=== PATIENT | female | born 1970 | race Caucasian/White ===

== ENCOUNTER 2019-02-27 13:41 | Emergency (ER) | payer BC ==
[2019-02-27 13:58] VITALS: BP 178/101; PULSE 100; O2SAT 98
[2019-02-27] MEDS ORDERED: Fluor-I-Strip/Ful-Flo OP ONE ×2 (14:01→14:05)
[2019-02-27] MEDS ORDERED: Eye-Stream Solution OP ONE (14:01)
[2019-02-27] MEDS ORDERED: TETRACAINE 0.5% STERI-UNIT SOL OP STA (14:01)
[2019-02-27] MEDS ORDERED: Eye-Stream Solution ONE (14:05)
[2019-02-27] MEDS ORDERED: TETRACAINE 0.5% STERI-UNIT SOL OP ONE (14:05)
--- NOTE | 2019-02-27 14:26 | ERPHSYRPT ---
- History of Present Illness Time Seen by Provider: 02/27/19 14:19 Source: patient Exam Limitations: no limitations Patient Subjective Stated Complaint: pt here for a contact stuck in left eye, she co pain and tearing,pt placed the new contact in at 0730 this was trying to remove contact for shower but is unable to get it out of eye Triage Nursing Assessment: pt alert, walked in, resp easy, skin w/d/p, has reddness and tearing to left eye Physician History: 48-year-old white female arrives with complaint that she has a contact lens stuck in her left thigh symptoms since 7:30 this morning she states she's tried to get the contact out but she has not been able to she is now having pain in her left eye. Past medical history includes COPD, arthritis, anxiety, depression, panic disorder, PTSD. Past surgical history includes cholecystectomy, orthopedic surgery, tubal ligation, back surgery. Timing/Duration: today (7:30 AM) Location: left eye Severity: moderate Apparent Injury: possibly Associated Symptoms: pain, burning, foreign body sensation, No itching, No sensitivity to light, No redness, No matting, No eyelid swelling, No decreased vision, No blurred vision, No double vision Visual Assistive Devices: Contacts Chemical Exposure: No Trauma: No Welding Arc/Tanning Bed Exposure: No Allergies/Adverse Reactions: latex [Latex] Allergy (Mild, Verified 02/27/19 13:58) olanzapine [From Zyprexa] Allergy (Mild, Verified 02/27/19 13:58) sumatriptan [From Imitrex] Allergy (Verified 02/27/19 13:58) sumatriptan succinate [From Imitrex] Allergy (Verified 02/27/19 13:58) Home Medications: Unobtainable 02/27/19 [History] Hx Tetanus, Diphtheria Vaccination/Date Given: No Hx Influenza Vaccination/Date Given: No Hx Pneumococcal Vaccination/Date Given: No Immunizations Up to Date: Yes - Review of Systems Constitutional: No Fever, No Chills Eyes: Eye Pain, Foreign Body Sensation (with a foreign body sensation feels like contact in her left eye) Ears, Nose, & Throat: No Symptoms Respiratory: No Symptoms Cardiac: No Chest Pain, No Edema, No Syncope Abdominal/Gastrointestinal: No Abdominal Pain, No Nausea, No Vomiting, No Diarrhea Genitourinary Symptoms: No Dysuria Musculoskeletal: No Back Pain, No Neck Pain Skin: No Rash Neurological: No Dizziness, No Focal Weakness, No Sensory Changes Psychological: No Symptoms Endocrine: No Symptoms All Other Systems: Reviewed and Negative - Past Medical History Pertinent Past Medical History: Yes Neurological History: Epilepsy ENT History: No Pertinent History Cardiac History: Hypertension Respiratory History: COPD Endocrine Medical History: No Pertinent History Musculoskeletal History: Arthritis GI Medical History: No Pertinent History History: No Pertinent History Psycho-Social History: Anxiety, Depression, Panic Disorder Female Reproductive Disorders: No Pertinent History Other Medical History: PTSD - Past Surgical History Past Surgical History: Yes Neuro Surgical History: No Pertinent History Cardiac: No Pertinent History Respiratory: No Pertinent History Gastrointestinal: Cholecystectomy Genitourinary: No Pertinent History Musculoskeletal: Orthopedic Surgery Female Surgical History: Tubal Ligation Other Surgical History: back surgery - Social History Smoking Status: Current every day smoker How long have you smoked: 20 yrs Exposure to second hand smoke: Yes Drug Use: none Patient Lives Alone: No - Female History Hx Last Menstrual Period: january Hx Now: No - Nursing Vital Signs Nursing Vital Signs: Initial Vital Signs Temperature 98.2 F 02/27/19 13:52 Pulse Rate 100 H 02/27/19 13:52 Respiratory Rate 16 02/27/19 13:52 Blood Pressure 178/101 02/27/19 13:52 O2 Sat by Pulse Oximetry 98 02/27/19 13:52 Pain Scale Pain Intensity 4 - Physical Exam General Appearance: mild distress, alert Vision Acuity Degree Evaluation Phase: Uncorrected Vision Acuity Right Eye: 20/30 Vision Acuity Left Eye: 20/40 (that she's) Eye Exam: left eye: conjunctivae pale, bilateral eye: PERRL, EOMI, other (eyes PERRLA EOMI fundi unremarkable left conjunctiva pale) Ears, Nose, Throat Exam: normal ENT inspection, TMs normal, pharynx normal, moist mucous membranes, No dry mucous membranes, No TM abnormal (R), No TM abnormal (L), No pharyngeal erythema, No tonsillar exudate Neck Exam: normal inspection, non-tender, supple, full range of motion, No limited range of motion Respiratory Exam: normal breath sounds, lungs clear, airway intact, No chest tenderness, No respiratory distress, No diminished breath sounds, No accessory muscle use, No prolonged expirations Cardiovascular Exam: regular rate/rhythm, capillary refill <2 sec Gastrointestinal Exam: soft, normal bowel sounds, No tenderness Extremity Exam: normal inspection Neurologic: alert, oriented x 3, 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 Skin Exam: normal color SpO2 Interpretation: normal (98%) SpO2: 98 Ordered Tests: Active Orders 24 hr Category Date Time Status Visual Acuity STAT Care 02/27/19 14:01 Active Medication Summary Discontinued Medications Generic Name Dose Route Start Last Admin Trade Name Luz PRN Reason Stop Dose Admin Eye Irrigation Solution 15 ml 02/27/19 14:01 Eye-Stream Solution OP 02/27/19 14:02 STAT ONE Fluorescein Sodium 1 mg 02/27/19 14:01 [id number]-Hyotx/Ful-Glynn OP 02/27/19 14:02 STAT ONE Tetracaine HCl 4 ml 02/27/19 14:01 Tetracaine 0.5% Steri-Unit Jessica OP 02/27/19 14:02 STAT STA - Progress Progress: improved Progress Note: 02/27/19 14:23 48-year-old white female arrives with complaint of foreign body sensation in her left eye and 7:30 this morning she states that she feels as if she had a contact lens into her left eye and was unable to get it out. Arrives with complaint of pain in the anterior left eye.. On physical examination eyes PERRLA EOMI fundi are unremarkable. Conjunctiva on the left is pale. Both lids are everted on left eye I do not see a foreign body Tetracaine 0.5% is instilled in the patient's left eye left eye isStained with fluorescein, no corneal abrasions noted, left eye rinsed with sterile eyewash solution still no foreign body is noted. Patient does have some conjunctival edema in the left eye to the lateral aspect. Patient's vision was checked patient did keep her right contact in vision 20/30 on the right [address] on the left[address] Dr. Ambriz (marketing education teacher) was contacted He is willing to further examine the patient will send patient to Dr. Ambriz's office 02/27/19 14:28 - Departure Departure Disposition: Home Clinical Impression: foreign body sensation left eye, Possible contact lens remaining in eye Condition: Fair Critical Care Time: No Referrals: CONCEPCION JACKSON [Primary Care Provider] - Additional Instructions: Proceed to Dr. Ambriz's office. [address] [place] [address], [place]. . Return if problems Drive with windows in car rolled up
== END 2019-02-27 14:40 | disposition home or self-care (01) ==
LOC: ED 13:41
DX: Z04.89 Encounter for examination and observation for other specified reasons (principal); H11.422 Conjunctival edema, left eye; H57.12 Ocular pain, left eye
CPT/HCPCS: 99283; A9270-GY

== ENCOUNTER 2019-04-26 20:08 | Emergency (ER) | payer BC ==
--- NOTE | 2019-04-26 20:44 | ERPHSYRPT ---
- History of Present Illness Time Seen by Provider: 04/26/19 20:35 Source: patient Exam Limitations: no limitations Patient Subjective Stated Complaint: pt is alert and oriented. pt is ambulatory with a steady gait. pt comes in with c/o headache and hypertension. 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 pt states that she ran out of her bp medications 4 days ago. pt current bp is 172/93. pt is slightly tachycardic at 106bpm. pt is 97% on RA. pt denies chest pain, dizziness, lightheadedness. pt states her only symptoms are headache and a pulsating feeling in her neck. Triage Nursing Assessment: see above Physician History: 41-year-old white female with history of high blood pressure arrives with complaint of a headache she states she woke up with a headache this morning and at approximately 2:30 this afternoon she had an increasingly severe headache was noted at work blood pressure 193/115 she has no chest pain she has no dizziness no problems moving she has no nausea. She states she's been off her blood pressure meds for 4 days as she ran out. Past medical history includes migraines, high blood pressure. Past surgical history includes tubal ligation. Timing/Duration: today Severity: moderate Modifying Factors: Improves With: other (has not taken blood pressure medications for 4 days) Associated Symptoms: headaches, malaise, No nausea, No vomiting, No abdominal pain, No shortness of breath, No heartburn, No diaphoresis, No cough, No chills , No chest pain, No fever, No loss of appetite, No syncope, No seizure Allergies/Adverse Reactions: latex [Latex] Allergy (Mild, Verified 02/27/19 13:58) olanzapine [From Zyprexa] Allergy (Mild, Verified 02/27/19 13:58) sumatriptan [From Imitrex] Allergy (Verified 02/27/19 13:58) sumatriptan succinate [From Imitrex] Allergy (Verified 02/27/19 13:58) Hx Tetanus, Diphtheria Vaccination/Date Given: No Hx Influenza Vaccination/Date Given: No Hx Pneumococcal Vaccination/Date Given: No Immunizations Up to Date: Yes - Review of Systems Constitutional: No Fever, No Chills Eyes: No Symptoms Ears, Nose, & Throat: No Symptoms Respiratory: No Cough, No Dyspnea Cardiac: No Chest Pain, No Edema, No Syncope Abdominal/Gastrointestinal: No Abdominal Pain, No Nausea, No Vomiting, No Diarrhea Genitourinary Symptoms: No Dysuria Musculoskeletal: No Arthralgias, No Back Pain, No Neck Pain, No Deformity, No Fall, No Injury, No Joint Redness, No Joint Pain, No Joint Swelling, No Myalgias Skin: No Rash Neurological: Headache, No Dizziness, No Focal Weakness, No Gait Changes, No Irritability, No Lethargy, No Paralysis, No Parasthesia, No Seizure, No Sensory Changes, No Speech Changes, No Tics, No Tremors, No Vertigo Psychological: No Symptoms Endocrine: No Symptoms All Other Systems: Reviewed and Negative - Past Medical History Pertinent Past Medical History: Yes Neurological History: Migraines ENT History: No Pertinent History Cardiac History: Hypertension Respiratory History: No Pertinent History Endocrine Medical History: No Pertinent History Musculoskeletal History: No Pertinent History GI Medical History: No Pertinent History History: No Pertinent History Psycho-Social History: No Pertinent History Female Reproductive Disorders: No Pertinent History Other Medical History: PTSD - Past Surgical History Past Surgical History: Yes Neuro Surgical History: No Pertinent History Cardiac: No Pertinent History Respiratory: No Pertinent History Gastrointestinal: No Pertinent History Genitourinary: No Pertinent History Musculoskeletal: No Pertinent History Female Surgical History: Tubal Ligation Other Surgical History: back surgery - Social History Smoking Status: Current every day smoker How long have you smoked: 20+ years Exposure to second hand smoke: Yes Drug Use: none Patient Lives Alone: No - Female History Hx Now: No (tubal) - Nursing Vital Signs Nursing Vital Signs: Initial Vital Signs Temperature 98.2 F 04/26/19 20:17 Pulse Rate 111 H 04/26/19 20:17 Respiratory Rate 18 04/26/19 20:17 Blood Pressure 172/93 04/26/19 20:17 O2 Sat by Pulse Oximetry 96 04/26/19 20:17 Pain Scale Pain Intensity 6 - Physical Exam General Appearance: no apparent distress, alert Eye Exam: PERRL/EOMI, eyes nml inspection Ears, Nose, Throat Exam: normal ENT inspection, TMs normal, pharynx normal, moist mucous membranes Neck Exam: normal inspection, non-tender, supple, full range of motion Respiratory Exam: normal breath sounds, lungs clear, No respiratory distress Cardiovascular Exam: regular rate/rhythm, normal heart sounds, normal peripheral pulses, capillary refill <2 sec Gastrointestinal/Abdomen Exam: soft (aa), normal bowel sounds, No tenderness, No mass Back Exam: normal inspection, normal range of motion, No CVA tenderness, No vertebral tenderness Extremity Exam: normal inspection, normal range of motion, pelvis stable Neurologic Exam: alert, oriented x 3, cooperative, intraoperative neuro 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-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 nml as tested, normal mood/affect, nml cerebellar function, nml station & gait, sensation nml, No motor deficits, No sensory deficit, No disoriented, No confusion, No agitation, No uncooperative, No intoxicated appearance, No depressed mood/affect , No motor weakness, No facial droop, No slurred speech, No aphasia, No dysarthria, No abnormal gait, No abnormal cerebellar tests, No abnormal intraoperative neuro tech II- XII, No EOM palsy Skin Exam: normal color, warm, dry, No rash Lymphatic Exam: No adenopathy SpO2 Interpretation: normal (96%) SpO2: 96 - Course Nursing assessment & vital signs reviewed: Yes - CT Exams Head CT Interpretation: Tele-radiologist Report (head CT: No acute intracranial abnormality) Ordered Tests: Active Orders 24 hr Category Date Time Status EKG-ER Only STAT Care 04/26/19 20:40 Active IV Insertion STAT Care 04/26/19 20:40 Active HEAD WITHOUT CONTRAST [CT] Stat Exams 04/26/19 20:41 Taken CBC W DIFF Stat Lab 04/26/19 21:10 Completed CMP Stat Lab 04/26/19 21:10 Completed CULTURE,URINE Stat Lab 04/26/19 22:39 Received HCG QUALITATIVE,SERUM Stat Lab 04/26/19 21:10 Completed TSH [TSH, 3RD Generation] Stat Lab 04/26/19 21:15 Completed UA W/RFX UR CULTURE Stat Lab 04/26/19 22:39 Completed Medication Summary Discontinued Medications Generic Name Dose Route Start Last Admin Trade Name Luz PRN Reason Stop Dose Admin Acetaminophen 650 mg 04/26/19 23:34 04/26/19 23:44 Tylenol 325 Mg PO 04/26/19 23:35 650 mg STAT ONE Administration Acetaminophen Confirm 04/26/19 23:43 Tylenol 325 Mg Administered 04/26/19 23:44 Dose 650 mg .ROUTE .STK-MED ONE Potassium Chloride 20 meq 04/26/19 23:14 04/26/19 23:27 Klor Con 10 Meq PO 04/26/19 23:15 20 meq STAT ONE Administration Potassium Chloride Confirm 04/26/19 23:26 Klor Con 10 Meq Administered 04/26/19 23:27 Dose 20 meq PO .STK-MED ONE Lab/Rad Data: Laboratory Result Diagrams 04/26/19 21:10 04/26/19 21:10 Laboratory Results 04/26/19 04/26/19 04/26/19 Range/Units 22:39 21:15 21:10 WBC (4.0-10.5) K/mm3 RBC (4.1-5.4) M/mm3 Hgb (12.0-16.0) gm/dl Hct (35-47) % MCV (78-100) fl MCH (26-32) pg MCHC (32-36) g/dl RDW (11.5-14.0) % Plt Count (150-450) K/mm3 MPV (6-9.5) fl Gran % (36.0-66.0) % Eos # (Auto) (0-0.5) Absolute Lymphs (auto) (1.0-4.6) Absolute Monos (auto) (0.0-1.3) Lymphocytes % (24.0-44.0) % Monocytes % (0.0-12.0) % Eosinophils % (0.00-5.0) % Basophils % (0.0-0.4) % Absolute Granulocytes (1.4-6.9) Basophils # (0-0.4) Sodium (137-145) mmol/L Potassium (3.5-5.1) mmol/L Chloride (98-107) mmol/L Carbon Dioxide (22-30) mmol/L Anion Gap (5-15) MEQ/L BUN (7-17) mg/dL Creatinine (0.52-1.04) mg/dL Estimated GFR ML/MIN Glucose (74-106) mg/dL Calcium (8.4-10.2) mg/dL Total Bilirubin (0.2-1.3) mg/dL AST (14-36) U/L ALT (0-35) U/L Alkaline Phosphatase (38-126) U/L Serum Total Protein (6.3-8.2) g/dL Albumin (3.5-5.0) g/dL Free T4 1.65 H (0.76-1.46) ng/dL TSH 3rd Generation 0.995 (0.47-4.68) mIU/L Serum , Qual (Negative) Urine Color YELLOW (YELLOW) Urine Appearance CLOUDY (CLEAR) Urine pH 5.0 (5-6) Ur Specific Rice 1.011 (1.005-1.025) Urine Protein 30 (Negative) Urine Ketones NEGATIVE (NEGATIVE) Urine Blood LARGE (0-5) Armando/ul Urine Nitrite NEGATIVE (NEGATIVE) Urine Bilirubin NEGATIVE (NEGATIVE) Urine Urobilinogen 2 (0-1) mg/dL Ur Leukocyte Esterase TRACE (NEGATIVE) Urine WBC (Auto) 6-10 (0-5) /HPF Urine RBC (Auto) 3-5 (0-2) /HPF U Epithel Cells (Auto) FEW (FEW) /HPF Urine Bacteria (Auto) RARE (NEGATIVE) /HPF Urine Mucus (Auto) SLIGHT (NEGATIVE) /HPF Urine Culture Reflexed YES (NO) Urine Glucose NEGATIVE (NEGATIVE) mg/dL 04/26/19 04/26/19 04/26/19 Range/Units 21:10 21:10 21:10 WBC 8.6 (4.0-10.5) K/mm3 RBC 4.13 (4.1-5.4) M/mm3 Hgb 12.5 (12.0-16.0) gm/dl Hct 38.4 (35-47) % MCV 93.0 (78-100) fl MCH 30.3 (26-32) pg MCHC 32.6 (32-36) g/dl RDW 13.3 (11.5-14.0) % Plt Count 347 (150-450) K/mm3 MPV 9.9 H (6-9.5) fl Gran % 67.2 H (36.0-66.0) % Eos # (Auto) 0.09 (0-0.5) Absolute Lymphs (auto) 2.38 (1.0-4.6) Absolute Monos (auto) 0.35 (0.0-1.3) Lymphocytes % 27.6 (24.0-44.0) % Monocytes % 4.1 (0.0-12.0) % Eosinophils % 1.0 (0.00-5.0) % Basophils % 0.1 (0.0-0.4) % Absolute Granulocytes 5.78 (1.4-6.9) Basophils # 0.01 (0-0.4) Sodium 141 (137-145) mmol/L Potassium 3.2 L (3.5-5.1) mmol/L Chloride 108 H (98-107) mmol/L Carbon Dioxide 27 (22-30) mmol/L Anion Gap 9.2 (5-15) MEQ/L BUN 7 (7-17) mg/dL Creatinine 0.85 (0.52-1.04) mg/dL Estimated GFR > 60.0 ML/MIN Glucose 112 H (74-106) mg/dL Calcium 9.0 (8.4-10.2) mg/dL Total Bilirubin 0.30 (0.2-1.3) mg/dL AST 16 (14-36) U/L ALT 12 (0-35) U/L Alkaline Phosphatase 51 (38-126) U/L Serum Total Protein 7.0 (6.3-8.2) g/dL Albumin 4.1 (3.5-5.0) g/dL Free T4 (0.76-1.46) ng/dL TSH 3rd Generation (0.47-4.68) mIU/L Serum , Qual NEGATIVE (Negative) Urine Color (YELLOW) Urine Appearance (CLEAR) Urine pH (5-6) Ur Specific Rice (1.005-1.025) Urine Protein (Negative) Urine Ketones (NEGATIVE) Urine Blood (0-5) Armando/ul Urine Nitrite (NEGATIVE) Urine Bilirubin (NEGATIVE) Urine Urobilinogen (0-1) mg/dL Ur Leukocyte Esterase (NEGATIVE) Urine WBC (Auto) (0-5) /HPF Urine RBC (Auto) (0-2) /HPF U Epithel Cells (Auto) (FEW) /HPF Urine Bacteria (Auto) (NEGATIVE) /HPF Urine Mucus (Auto) (NEGATIVE) /HPF Urine Culture Reflexed (NO) Urine Glucose (NEGATIVE) mg/dL - Progress Progress: improved Progress Note: 04/26/19 23:45 Patient's labs are unremarkable. Head CT no acute intracranial abnormality blood pressure markedly improved as compared to the one reported for work Patient was given Tylenol for pain She had been offered [place] but prefers Tylenol She was also given potassium 20 mEq for a potassium level of 3.2 Will go ahead and discharge patient. patient to rest at home. Patient to contact her family doctor for refills of her antihypertensives. Return for acute distress or for severe symptoms . - Departure Departure Disposition: Home Clinical Impression: Headache Qualifiers: Headache type: unspecified Headache chronicity pattern: acute headache Intractability: not intractable Qualified Code(s): R51 - Headache Hypertension Qualifiers: Hypertension type: unspecified Qualified Code(s): I10 - Essential (primary) hypertension Condition: Fair Critical Care Time: No Referrals: MAIA BARRAZA MD [Primary Care Provider] - Additional Instructions: Return home. [place] as prescribed. Followup with your family . Return for acute distress or for severe symptoms. Prescriptions: Hydrocodone/APAP 5-325 Tab^^^ [[place] 5-325 Tablet^^^] 1 tab PO Q6HPRN PRN #10 tablet MDD 6 PRN Reason: Pain
[2019-04-26 21:21] LABS: BASOPHIL % 0.1 % (0.0-0.4); Basophil (Absolute #) 0.01 (0-0.4); Eosinophil (Absolute #) 0.09 (0-0.5); Granulocyte Absolute (ANC) 5.78 (1.4-6.9); Granulocytes % 67.2 % (36.0-66.0); Hematocrit 38.4 % (35-47); Hemoglobin 12.5 gm/dl (12.0-16.0); Lymphocyte (Absolute #) 2.38 (1.0-4.6); Lymphocytes % 27.6 % (24.0-44.0); Mean Corpuscular Hemoglobin 30.3 pg (26-32); Mean Corpuscular Hgb Concent. 32.6 g/dl (32-36); Mean Platelet Volume 9.9 fl (6-9.5); Monocyte (Absolute #) 0.35 (0.0-1.3); Monocytes % 4.1 % (0.0-12.0); Platelet Count 347 K/mm3 (150-450); Red Blood Count 4.13 M/mm3 (4.1-5.4); Red Cell Distribution Width 13.3 % (11.5-14.0); White Blood Count 8.6 K/mm3 (4.0-10.5)
[2019-04-26 21:30] LABS: ALBUMIN 4.1 g/dL (3.5-5.0); ALKALINE PHOSPHATASE 51 U/L (38-126); ANION GAP 9.2 MEQ/L (5-15); BLOOD UREA NITROGEN 7 mg/dL (7-17); CHLORIDE 108 mmol/L (98-107); Carbon Dioxide 27 mmol/L (22-30); Creatinine 1 0.85 mg/dL (0.52-1.04); Glucose 112 mg/dL (74-106); Potassium 3.2 mmol/L (3.5-5.1); SGOT/AST 16 U/L (14-36); SGPT/ALT 12 U/L (0-35); SODIUM 141 mmol/L (137-145)
[2019-04-26 22:49] LABS: Appearance CLOUDY (CLEAR); Bacteria RARE /HPF (NEGATIVE); Bilirubin NEGATIVE (NEGATIVE); Blood LARGE Ery/ul (0-5); Epithelial Cells FEW /HPF (FEW); Glucose NEGATIVE (NEGATIVE); Ketones NEGATIVE (NEGATIVE); Leukocyte Esterase TRACE (NEGATIVE); Mucus SLIGHT /HPF (NEGATIVE); Nitrite NEGATIVE (NEGATIVE); Protein,Urine Dip 30 (Negative); Specific Gravity 1.011 (1.005-1.025); Urobilinogen 2 mg/dL (0-1)
[2019-04-26 23:06] VITALS: O2SAT 96
[2019-04-26] MEDS ORDERED: Klor Con 10 MEQ PO ONE ×2 (23:14→23:26)
[2019-04-26] MEDS ORDERED: TYLENOL 325 MG PO ONE (23:34)
[2019-04-26] MEDS ORDERED: TYLENOL 325 MG ONE (23:43)
[2019-04-26] MEDS ORDERED: NORCO 5/325 MG ONE (23:48)
[2019-04-26] MEDS ORDERED: Tylenol #3 Tablet PO ONE (23:50)
[2019-04-26] MEDS ORDERED: NORCO 5/325 MG PO ONE (23:54)
[2019-04-26 23:57] VITALS: BP 169/86; PULSE 88
--- NOTE | 2019-04-27 14:35 | XRAY ---
Indication: Posterior headache. High blood pressure. History of migraines. No known injury. Multiple contiguous axial images obtained through the head without contrast. Comparison: September 29, 2015. Again normal appearing brain parenchyma, ventricles, and bony calvarium. Visualized paranasal sinuses and mastoid air cells are clear. Impression: Stable normal CT head without contrast exam. Comment: Preliminary interpretation was made by [facility]. No critical discrepancy. CTDI 70.21
== END 2019-04-27 00:06 | disposition home or self-care (01) ==
LOC: ED 20:08
DX: R51 Headache (principal); I10 Essential (primary) hypertension
CPT/HCPCS: 36000; 36415; 70450; 80053; 81001; 81025; 84439; 84443; 85025; 87086; 93005; 99284; A9270-GY

== ENCOUNTER 2021-04-02 17:11 | Emergency (ER) | payer BC, OTHER ==
[2021-04-02] MEDS ORDERED: XYLOCAINE 1% HCL 20 ML MDV ONE (17:53)
[2021-04-02] MEDS ORDERED: Adacel Vial IM ONE ×2 (17:58→18:12)
--- NOTE | 2021-04-02 18:02 | ERPHSYRPT ---
- History of Present Illness Source: patient Exam Limitations: no limitations Patient Subjective Stated Complaint: Pts hand got her right hand twisted around the dog leash and cut pinky finger and pulled most of the nail away from the nail bed from the bottom Triage Nursing Assessment: Pt brought to the ER by her mother, tachycardic, rates pain 6/10, right nail pulled from nail bed, denies any other injury Physician History: 50 yo wf w L 1st digit vs door at home before arrival. Pt denies other/previous injuries. Tetanus will be given in ER. Occurred: just prior to arrival Method of Injury: direct blow Quality: constant Severity of Pain-Max: moderate Severity of Pain-Current: moderate Extremities Pain Location: 5th finger: left Modifying Factors: Improves With: movement Associated Symptoms: none Allergies/Adverse Reactions: latex [Latex] Allergy (Mild, Verified 04/02/21 17:22) olanzapine [From Zyprexa] Allergy (Mild, Verified 04/02/21 17:22) sumatriptan [From Imitrex] Allergy (Verified 04/02/21 17:22) sumatriptan succinate [From Imitrex] Allergy (Verified 04/02/21 17:22) Home Medications: Atorvastatin Calcium [Lipitor] 10 mg PO DAILY 04/02/21 [History] Cyclobenzaprine HCl 10 mg [Cyclobenzaprine 10 MG] 10 mg PO TID 04/02/21 [History] Gabapentin 100 mg [Neurontin 100 MG] 300 mg PO UD 04/02/21 [History] Loratadine 10 mg [Claritin 10 mg] 10 mg PO DAILY 04/02/21 [History] Losartan/Hydrochlorothiazide [Losartan-Hctz 50-12.5 mg Tab] 1 each PO DAILY 04/02/21 [History] Metoprolol Succinate 25 mg Xl* [Toprol-Xl 25MG Tablets] 25 mg PO DAILY 12/19 [History] Omeprazole 20 mg PO DAILY 04/02/21 [History] Hx Tetanus, Diphtheria Vaccination/Date Given: No Hx Influenza Vaccination/Date Given: No Hx Pneumococcal Vaccination/Date Given: No Travel Risk - International Travel Have you traveled outside of the country in past 3 weeks: No - Coronavirus Screening Are you exhibiting any of the following symptoms?: No Close contact with a COVID-19 positive Pt in past 14-21 Days: No - Vaccine Status Have you recieved a Covid-19 vaccination: Yes Manager Environmental Services: Moderna - Vaccination Dates Date of 2cond Vaccination (if applicable): 11/24/2020 - Review of Systems Constitutional: No Symptoms Eyes: No Symptoms Ears, Nose, & Throat: No Symptoms Respiratory: No Symptoms Cardiac: No Symptoms Abdominal/Gastrointestinal: No Symptoms Genitourinary Symptoms: No Symptoms Skin: No Symptoms Neurological: No Symptoms Psychological: No Symptoms Endocrine: No Symptoms Hematologic/Lymphatic: No Symptoms Immunological/Allergic: No Symptoms - Past Medical History Pertinent Past Medical History: Yes Neurological History: Migraines ENT History: No Pertinent History Cardiac History: Hypertension Respiratory History: No Pertinent History Endocrine Medical History: No Pertinent History Musculoskeletal History: No Pertinent History GI Medical History: No Pertinent History History: No Pertinent History Psycho-Social History: No Pertinent History Female Reproductive Disorders: No Pertinent History Other Medical History: PTSD - Past Surgical History Past Surgical History: Yes Neuro Surgical History: No Pertinent History Cardiac: No Pertinent History Respiratory: No Pertinent History Gastrointestinal: No Pertinent History Genitourinary: No Pertinent History Musculoskeletal: No Pertinent History Female Surgical History: Tubal Ligation Other Surgical History: back surgery - Social History Smoking Status: Current every day smoker How long have you smoked: 20+ years Exposure to second hand smoke: Yes Drug Use: none Patient Lives Alone: No Significant Family History: no pertinent family hx - Female History Hx Now: No - Nursing Vital Signs Nursing Vital Signs: Initial Vital Signs Temperature 97.9 F 04/02/21 17:13 Pulse Rate 101 H 04/02/21 17:13 Blood Pressure 133/86 04/02/21 17:13 O2 Sat by Pulse Oximetry 97 04/02/21 17:13 Pain Scale Pain Intensity 4 Tachycardic - Physical Exam General Appearance: no apparent distress Eyes, Ears, Nose, Throat Exam: normal ENT inspection Neck Exam: normal inspection, non-tender, supple, full range of motion Cardiovascular/Respiratory Exam: normal breath sounds, tachycardia (Mild) Abdominal Exam: non-tender, soft Back Exam: normal inspection Shoulder Exam: normal inspection Elbow/Forearm Exam: normal inspection Wrist Exam: normal inspection Hand Exam: laceration (R 5th digit w almost complete nail avulsion/Good distal capillary return and sensation) Neuro/Tendon Exam: normal sensation, normal motor functions, normal tendon functions, responds to pain, no evidence tendon injury, No motor deficit, No sensory deficit Mental Status Exam: alert, oriented x 3, cooperative Skin Exam: normal color, warm, dry SpO2 Interpretation: normal SpO2: 97 O2 Delivery: Room Air - Course Nursing assessment & vital signs reviewed: Yes - Radiology Exams Hand X-ray Interpretation: Interpreted by me (Distal L 5th digit fx per ER read) Ordered Tests: Active Orders 24 hr Category Date Time Status Wound Care STAT Care 04/02/21 18:50 Completed FINGER(S) Stat Exams 04/02/21 18:12 Taken Medication Summary Discontinued Medications Generic Name Dose Route Start Last Admin Trade Name Freq PRN Reason Stop Dose Admin Bacitracin Zinc 0.9 gm 04/02/21 18:50 04/02/21 18:53 Baciguent Packet TP 04/02/21 18:51 0.9 gm STAT ONE Administration Bacitracin Zinc Confirm 04/02/21 18:52 Baciguent Packet Administered 04/02/21 18:53 Dose 1 gm .ROUTE .STK-MED ONE Diphtheria/Tetanus/Acell Pertussis 0.5 ml 04/02/21 17:58 04/02/21 18:13 Adacel Vial IM 04/02/21 17:59 0.5 ml .ONCE ONE Administration Diphtheria/Tetanus/Acell Pertussis Confirm 04/02/21 18:12 Adacel Vial Administered 04/02/21 18:13 Dose 0.5 ml IM .STK-MED ONE Lidocaine HCl Confirm 04/02/21 17:53 Xylocaine 1% Hcl 20 Ml Mdv Administered 04/02/21 17:54 Dose 5 ml .ROUTE .STK-MED ONE Silver Nitrate Confirm 04/02/21 18:39 Arzol Silver Nitrate Applicator Administered 04/02/21 18:40 Dose 4 pkt TP .STK-MED ONE Silver Nitrate Confirm 04/02/21 18:44 Arzol Silver Nitrate Applicator Administered 04/02/21 18:45 Dose 2 pkt TP .STK-MED ONE - Progress Progress: improved Progress Note: 04/02/21 18:46 Digital block 1% lido wo epi R 5th digit Finger soaked in Hibiclens Nail removed w ease Prepped w Betadine 5.0 Ethilon x2 placed to stop bleeding Silver nitrate applied to stop bleeding Pt on Augmentin already Tube gauze applied per nursing Pt has [place] at home to take Counseled pt/family regarding: need for follow-up, rad results - Departure Departure Disposition: Home Clinical Impression: Open fracture of tuft of distal phalanx of finger Condition: Stable Critical Care Time: No Referrals: MAIA BARRAZA MD [Primary Care Provider] - ZEINAB - SANTANA BLOOM NP [NON-STAFF PHY W/O PRIVILEGES] - Instructions: Wound Care (DC) Additional Instructions: Follow up with orthopedic clinic on Sunday Keep wound dry for 48 hours, then wash 1-2 times a day w soap/water [place]chwood as needed Continue with Augmentin
[2021-04-02] MEDS ORDERED: ARZOL Silver Nitrate Applicator TP ONE ×2 (18:39→18:44)
[2021-04-02] MEDS ORDERED: BACIGUENT PACKET TP ONE (18:50)
[2021-04-02] MEDS ORDERED: BACIGUENT PACKET ONE (18:52)
[2021-04-02 19:01] VITALS: BP 156/91; PULSE 88
[2021-04-02 19:57] VITALS: O2SAT 97
--- NOTE | 2021-04-02 19:59 | XRAY ---
Indication: Crush injury. Comparison: None 3 view right 5th finger demonstrates nondisplaced tuft fracture with soft tissue swelling.
== END 2021-04-02 19:06 | disposition home or self-care (01) ==
LOC: ED 17:11
DX: S62.636A Displaced fracture of distal phalanx of right little finger, initial encounter for closed fracture (principal); W23.0XXA Caught, crushed, jammed, or pinched between moving objects, initial encounter; Z79.899 Other long term (current) drug therapy
CPT/HCPCS: 73140; 90471; 90715; 99284; A9270-GY

== ENCOUNTER 2022-07-13 18:36 | Emergency (ER) | payer BC ==
[2022-07-13] MEDS ORDERED: Sodium Chloride 0.9% 1000 ML 1,000 ML IV STA (19:08)
[2022-07-13] MEDS ORDERED: Keppra 500 MG/5 ML*** 1,000 MG in D5w 100ML Mini Bag 100 ML 100 ML IV ONE (19:08)
--- NOTE | 2022-07-13 19:21 | ERPHSYRPT ---
- History of Present Illness Time Seen by Provider: 07/13/22 18:40 Source: patient, EMS Exam Limitations: no limitations Patient Subjective Stated Complaint: Seizure Triage Nursing Assessment: Patient brought into ED per EMS and transferred to bed with assist of 2. Patient A+O X 2, disoriented to time. Patient brought into ED for seizures. EMS was called for patient having seizures. EMS arrived and patient was outside on ground having a seizure lasting 5-6 sec. Patient was given 3mg of Versed per EMS. Patient states she was started on Keppra one week ago and has been having seizures daily since starting med. Patient states her last seizure was 5 years ago before starting Keppra. Patient states she had a seizure prior to starting Keppra. Patient complains of headache 10/10 and nausea. Physician History: 52 years old female with history of anxiety, depression, hypertension, hyperlipidemia, seizure disorder presented in the ER with chief complaint of multiple seizures today. Patient reports she has been taking Dilantin since 2010 and was taken off of it for quite some time until recently she started to h ave seizures again. She was started on Keppra by her primary care but now she is having seizures every day. Patient received 3 mg of Versed prior to arrival. She is answering all questions appropriately. Complaining of generalized soreness, body aches and headache but no focal numbness tingling or weakness. Denies any fall or trauma. While in the ER patient had another episode of generalized shaking and no postictal phase. No loss of bowel or bladder control. No tongue bite. Timing/Duration: today, intermittent, gradual onset, worse Severity: moderate Character of Deficits: none Deficits: no difficulties Baseline/Normal Cognition: alert oriented x 3 Current Cognition: alert oriented x 3 Baseline Gait: walks w/o assistance Associated Symptoms: seizures, headache, No confusion, No loss of consciousness, No vomiting, No weakness, No insomnia, No muscle spasms, No numbness/tingling in legs/feet, No paresthesia, No ringing in ears, No slurred speech, No vision changes, No chest pain Allergies/Adverse Reactions: latex [Latex] Allergy (Mild, Verified 07/13/22 18:41) olanzapine [From Zyprexa] Allergy (Mild, Verified 07/13/22 18:41) sumatriptan [From Imitrex] Allergy (Verified 07/13/22 18:41) sumatriptan succinate [From Imitrex] Allergy (Verified 07/13/22 18:41) Home Medications: Atorvastatin Calcium [Lipitor] 10 mg PO DAILY 04/02/21 [History] Cyclobenzaprine HCl 10 mg [Cyclobenzaprine 10 MG] 10 mg PO TID 04/02/21 [History] Gabapentin [Neurontin 100 MG] 300 mg PO UD 04/02/21 [History] Loratadine 10 mg [Claritin 10 mg] 10 mg PO DAILY 04/02/21 [History] Losartan/Hydrochlorothiazide [Losartan-Hctz 50-12.5 mg Tab] 1 each PO DAILY 04/02/21 [History] Metoprolol Succinate 25 mg Xl* [Toprol-Xl 25MG Tablets] 25 mg PO DAILY 04/02/21 [History] Omeprazole 20 mg PO DAILY 04/02/21 [History] Hx Tetanus, Diphtheria Vaccination/Date Given: No Hx Influenza Vaccination/Date Given: No Hx Pneumococcal Vaccination/Date Given: No Immunizations Up to Date: Yes Travel Risk - International Travel Have you traveled outside of the country in past 3 weeks: No - Coronavirus Screening Are you exhibiting any of the following symptoms?: No Close contact with a COVID-19 positive Pt in past 14-21 Days: No - Vaccine Status Have you recieved a Covid-19 vaccination: Yes Senior Enlisted Advisor: Moderna - Vaccination Dates Date of 2cond Vaccination (if applicable): 11/24/2020 - Review of Systems Constitutional: No Symptoms Eyes: No Symptoms Ears, Nose, & Throat: No Symptoms Respiratory: No Symptoms Cardiac: No Symptoms Abdominal/Gastrointestinal: No Symptoms Genitourinary Symptoms: No Symptoms Musculoskeletal: Myalgias Skin: No Symptoms Neurological: Seizure Psychological: No Symptoms Endocrine: No Symptoms Hematologic/Lymphatic: No Symptoms Immunological/Allergic: No Symptoms - Past Medical History Pertinent Past Medical History: Yes Neurological History: Migraines ENT History: No Pertinent History Cardiac History: Hypertension Respiratory History: No Pertinent History Endocrine Medical History: No Pertinent History Musculoskeletal History: No Pertinent History GI Medical History: No Pertinent History History: No Pertinent History Psycho-Social History: No Pertinent History Female Reproductive Disorders: No Pertinent History Other Medical History: PTSD - Past Surgical History Past Surgical History: Yes Neuro Surgical History: No Pertinent History Cardiac: No Pertinent History Respiratory: No Pertinent History Gastrointestinal: No Pertinent History Genitourinary: No Pertinent History Musculoskeletal: No Pertinent History Female Surgical History: Tubal Ligation Other Surgical History: back surgery - Social History Smoking Status: Current every day smoker How long have you smoked: 20+ years Exposure to second hand smoke: Yes Drug Use: none Patient Lives Alone: No Significant Family History: no pertinent family hx - Nursing Vital Signs Nursing Vital Signs: Initial Vital Signs Temperature 98.1 F 07/13/22 18:45 Pulse Rate 103 H 07/13/22 18:45 Respiratory Rate 18 07/13/22 18:45 Blood Pressure 130/84 07/13/22 18:45 O2 Sat by Pulse Oximetry 96 07/13/22 18:45 Pain Scale Pain Intensity 4 - [place] Coma Scale Best Eye Response (Genna): (4) open spontaneously Best Verbal Response ([place]): (5) oriented Best Motor Response (Genna): (6) obeys commands [place] Total: 15 - Physical Exam General Appearance: no apparent distress, alert Eye Exam: bilateral eye: normal inspection, PERRL, EOMI Ears, Nose, Throat Exam: normal ENT inspection Neck Exam: normal inspection, non-tender, supple, full range of motion Respiratory: normal breath sounds, lungs clear Cardiovascular: regular rate/rhythm, normal heart sounds Gastrointestinal: soft, normal bowel sounds, No tenderness Back Exam: normal inspection, normal range of motion Extremity Exam: normal inspection, normal range of motion, pelvis stable 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, oriented x 3, 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: normal hearing, normal speech, PERRL, No facial asymmetry Coordination/Gait: normal finger to nose, normal gait, normal cerebellar function Motor/Sensory: no motor deficit, no sensory deficit, no pronator drift, negative Babinski's sign DTR: bicep (R): 2+, bicep (L): 2+, knee (R): 2+, knee (L): 2+ Skin Exam: normal color SpO2 Interpretation: normal SpO2: 96 O2 Delivery: Room Air Ordered Tests: Medication Summary Discontinued Medications Generic Name Dose Route Start Last Admin Trade Name Freq PRN Reason Stop Dose Admin Sodium Chloride 1,000 mls @ 999 mls/hr 07/13/22 19:08 07/13/22 20:34 Sodium Chloride 0.9% 1000 Ml IV 07/13/22 20:08 Infused .Q1H1M STA Infusion Levetiracetam 1,000 mg/ 110 mls @ 400 mls/hr 07/13/22 19:08 07/13/22 19:28 Dextrose IV 07/13/22 19:24 400 mls/hr STAT ONE Administration Dextrose Confirm 07/13/22 19:22 D5w 100ml Mini Bag 100 Ml Administered 07/13/22 19:23 Dose 100 mls @ ud IV .STK-MED ONE Sodium Chloride Confirm 07/13/22 19:26 Sodium Chloride 0.9% 1000 Ml Administered 07/13/22 19:27 Dose 1,000 mls @ ud .ROUTE .STK-MED ONE Levetiracetam Confirm 07/13/22 19: Levetiracetam 500 Mg/5 Ml Vial Administered 07/13/22 19:23 Dose 1,000 mg .ROUTE .STK-MED ONE Lab/Rad Data: Laboratory Result Diagrams 07/13/22 19:25 07/13/22 19:25 Laboratory Results 07/13/22 07/13/22 07/13/22 Range/Units 21:28 19:43 19:43 WBC (4.0-10.5) x10^3/uL RBC (4.1-5.4) x10^6/uL Hgb (12.0-16.0) g/dL Hct (35-47) % MCV (78-100) fL MCH (26-32) pg MCHC (32-36) g/dL RDW (11.5-14.0) % Plt Count (150-450) x10^3/uL MPV (7.5-11.0) fL Gran % (36.0-66.0) % Immature Gran % (Auto) (0.00-0.4) % Nucleat RBC Rel Count (0.00-0.1) % Eos # (Auto) (0-0.5) x10^3/uL Immature Gran # (Auto) (0.00-0.03) x10^3u/L Absolute Lymphs (auto) (1.0-4.6) x10^3/uL Absolute Monos (auto) (0.0-1.3) x10^3/uL Absolute Nucleated RBC (0.00-0.01) x10^3u/L Lymphocytes % (24.0-44.0) % Monocytes % (0.0-12.0) % Eosinophils % (0.00-5.0) % Basophils % (0.0-0.4) % Absolute Granulocytes (1.4-6.9) x10^3/uL Basophils # (0-0.4) x10^3/uL Sodium (137-145) mmol/L Potassium (3.5-5.1) mmol/L Chloride (98-107) mmol/L Carbon Dioxide (22-30) mmol/L Anion Gap (5-15) MEQ/L BUN (7-17) mg/dL Creatinine (0.52-1.04) mg/dL Estimated GFR ML/MIN Glucose (74-106) mg/dL Lactic Acid 0.9 (0.4-2.0) Calcium (8.4-10.2) mg/dL Total Bilirubin (0.2-1.3) mg/dL AST (14-36) U/L ALT (0-35) U/L Alkaline Phosphatase (38-126) U/L Serum Total Protein (6.3-8.2) g/dL Albumin (3.5-5.0) g/dL Urinalys Dipstick Clnc MAIN LAB Urine Color YELLOW (YELLOW) Urine Appearance CLEAR (CLEAR) Urine pH 6.5 (5-6) Ur Specific [place] 1.015 (1.005-1.025) POC Urine Protein Conf NEGATIVE (Negative) Urine Ketones NEGATIVE (NEGATIVE) Urine Nitrite NEGATIVE (NEGATIVE) Urine Bilirubin NEGATIVE (NEGATIVE) Urine Urobilinogen 1 (0-1) mg/dL Urine Leukocytes NEGATIVE (NEGATIVE) Urine WBC (Auto) NONE (0-5) /HPF Urine RBC (Auto) 0-2 (0-2) /HPF U Epithel Cells (Auto) NONE (FEW) /HPF Urine Bacteria (Auto) NONE (NEGATIVE) /HPF Urine RBC NEGATIVE (0-5) Armando/ul Ur Culture Indicated? NO Urine Glucose NEGATIVE (NEGATIVE) mg/dL Urine Opiates Level NEGATIVE (NEGATIVE) Ur Methadone NEGATIVE (NEGATIVE) Urine Barbiturates NEGATIVE (NEGATIVE) Ur Phencyclidine (PCP) NEGATIVE (NEGATIVE) Urine Amphetamine NEGATIVE (NEGATIVE) U Benzodiazepine Level POSITIVE (NEGATIVE) Urine Cocaine NEGATIVE (NEGATIVE) Urine Marijuana (THC) NEGATIVE (NEGATIVE) 07/13/22 07/13/22 07/13/22 Range/Units 19:25 19:25 19:22 WBC 9.2 (4.0-10.5) x10^3/uL RBC 4.65 (4.1-5.4) x10^6/uL Hgb 13.9 (12.0-16.0) g/dL Hct 44.0 (35-47) % MCV 94.6 (78-100) fL MCH 29.9 (26-32) pg MCHC 31.6 L (32-36) g/dL RDW 13.6 (11.5-14.0) % Plt Count 345 (150-450) x10^3/uL MPV 9.7 (7.5-11.0) fL Gran % 67.8 H (36.0-66.0) % Immature Gran % (Auto) 0.4 (0.00-0.4) % Nucleat RBC Rel Count 0.0 (0.00-0.1) % Eos # (Auto) 0.19 (0-0.5) x10^3/uL Immature Gran # (Auto) 0.04 H (0.00-0.03) x10^3u/L Absolute Lymphs (auto) 2.32 (1.0-4.6) x10^3/uL Absolute Monos (auto) 0.36 (0.0-1.3) x10^3/uL Absolute Nucleated RBC 0.00 (0.00-0.01) x10^3u/L Lymphocytes % 25.4 (24.0-44.0) % Monocytes % 3.9 (0.0-12.0) % Eosinophils % 2.1 (0.00-5.0) % Basophils % 0.4 (0.0-0.4) % Absolute Granulocytes 6.20 (1.4-6.9) x10^3/uL Basophils # 0.04 (0-0.4) x10^3/uL Sodium 138 (137-145) mmol/L Potassium 4.0 (3.5-5.1) mmol/L Chloride 103 (98-107) mmol/L Carbon Dioxide 29 (22-30) mmol/L Anion Gap 10.9 (5-15) MEQ/L BUN 9 (7-17) mg/dL Creatinine 0.96 (0.52-1.04) mg/dL Estimated GFR > 60.0 ML/MIN Glucose 99 (74-106) mg/dL Lactic Acid 2.4 H (0.4-2.0) Calcium 9.0 (8.4-10.2) mg/dL Total Bilirubin 0.40 (0.2-1.3) mg/dL AST 20 (14-36) U/L ALT 16 (0-35) U/L Alkaline Phosphatase 65 (38-126) U/L Serum Total Protein 7.6 (6.3-8.2) g/dL Albumin 4.4 (3.5-5.0) g/dL Urinalys Dipstick Clnc Urine Color (YELLOW) Urine Appearance (CLEAR) Urine pH (5-6) Ur Specific [place] (1.005-1.025) POC Urine Protein Conf (Negative) Urine Ketones (NEGATIVE) Urine Nitrite (NEGATIVE) Urine Bilirubin (NEGATIVE) Urine Urobilinogen (0-1) mg/dL Urine Leukocytes (NEGATIVE) Urine WBC (Auto) (0-5) /HPF Urine RBC (Auto) (0-2) /HPF U Epithel Cells (Auto) (FEW) /HPF Urine Bacteria (Auto) (NEGATIVE) /HPF Urine RBC (0-5) Armando/ul Ur Culture Indicated? Urine Glucose (NEGATIVE) mg/dL Urine Opiates Level (NEGATIVE) Ur Methadone (NEGATIVE) Urine Barbiturates (NEGATIVE) Ur Phencyclidine (PCP) (NEGATIVE) Urine Amphetamine (NEGATIVE) U Benzodiazepine Level (NEGATIVE) Urine Cocaine (NEGATIVE) Urine Marijuana (THC) (NEGATIVE) - Progress Progress: improved Progress Note: 07/13/22 22:25 52-year-old is evaluated for seizures multiple times which are lately getting worse. Patient later on reported her seizures are more related to stress which is worsening lately. Patient has nonfocal neuro exam. She is back to her baseline. She is given dose of Keppra. Work-up unremarkable including CT head. 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 She is advised to continue with Keppra and follow-up with her primary care and neurology for reevaluation. Discussed signs symptoms of worsening needing return to ER which she seems understanding. Stable for discharge. Counseled pt/family regarding: lab results, diagnosis, need for follow-up, rad results - Departure Departure Disposition: Home Clinical Impression: Pseudoseizures Condition: Stable Critical Care Time: No Referrals: MAIA BARRAZA MD [Primary Care Provider] - Follow up/PCP as directed (1-2 days for reevaluation) Instructions: Seizures, Adult (DC) Additional Instructions: Continue with current medications. Follow-up with primary care and neurology for reevaluation. Return to ER for any worsening seizures, numbness tingling focal weakness etc.
[2022-07-13] MEDS ORDERED: D5w 100ML Mini Bag 100 ML 100 ML IV ONE (19:22)
[2022-07-13] MEDS ORDERED: Keppra 500 MG/5 ML ONE (19:22)
[2022-07-13] MEDS ORDERED: Sodium Chloride 0.9% 1000 ML 1,000 ML ONE (19:26)
[2022-07-13 19:48] LABS: Basophil (Absolute #) 0.04 x10^3/uL (0-0.4); Eosinophil % 2.1 % (0.00-5.0); Eosinophil (Absolute #) 0.19 x10^3/uL (0-0.5); Hemoglobin 13.9 g/dL (12.0-16.0); Lymphocyte (Absolute #) 2.32 x10^3/uL (1.0-4.6); Lymphocytes % 25.4 % (24.0-44.0); Mean Cell Volume 94.6 fL (78-100); Mean Corpuscular Hemoglobin 29.9 pg (26-32); Mean Corpuscular Hgb Concent. 31.6 g/dL (32-36); Mean Platelet Volume 9.7 fL (7.5-11.0); Monocyte (Absolute #) 0.36 x10^3/uL (0.0-1.3); Monocytes % 3.9 % (0.0-12.0); Neutrophil % 67.8 % (36.0-66.0); Platelet Count 345 x10^3/uL (150-450); Red Blood Count 4.65 x10^6/uL (4.1-5.4); Red Cell Distribution Width 13.6 % (11.5-14.0); White Blood Count 9.2 x10^3/uL (4.0-10.5)
[2022-07-13 19:59] LABS: Appearance CLEAR (CLEAR)
[2022-07-13 20:00] LABS: Bilirubin NEGATIVE (NEGATIVE); Dipstick done @ ? MAIN LAB; Glucose NEGATIVE (NEGATIVE); Ketones NEGATIVE (NEGATIVE); Nitrite NEGATIVE (NEGATIVE); Ph 6.5 (5-6); Protein,Urine Dip NEGATIVE (Negative); RBC NEGATIVE Ery/ul (0-5); Specific Gravity 1.015 (1.005-1.025); Urobilinogen 1 mg/dL (0-1)
[2022-07-13 20:16] LABS: RBC 0-2 /HPF (0-2)
[2022-07-13 20:17] LABS: Urine Cultured Indicated? NO
[2022-07-13 20:26] LABS: ALBUMIN 4.4 g/dL (3.5-5.0); ALKALINE PHOSPHATASE 65 U/L (38-126); ANION GAP 10.9 MEQ/L (5-15); BLOOD UREA NITROGEN 9 mg/dL (7-17); CHLORIDE 103 mmol/L (98-107); Carbon Dioxide 29 mmol/L (22-30); Creatinine 1 0.96 mg/dL (0.52-1.04); EST GLOMERULAR FILTRATION RATE > 60.0 ML/MIN; Glucose 99 mg/dL (74-106); SGOT/AST 20 U/L (14-36); SGPT/ALT 16 U/L (0-35); SODIUM 138 mmol/L (137-145); Total Protein 7.6 g/dL (6.3-8.2)
[2022-07-13 20:28] LABS: Amphetamine,Urine NEGATIVE (NEGATIVE); Barbiturate,Urine NEGATIVE (NEGATIVE); Benzodiazepine,Urine POSITIVE (NEGATIVE); Cocaine,Urine NEGATIVE (NEGATIVE); Opiate,Urine NEGATIVE (NEGATIVE); PCP,Urine NEGATIVE (NEGATIVE); THC,Urine NEGATIVE (NEGATIVE)
[2022-07-13 20:33] LABS: Methadone,Urine NEGATIVE (NEGATIVE)
[2022-07-13 22:07] VITALS: BP 113/77; PULSE 83
[2022-07-13 22:31] VITALS: O2SAT 96
--- NOTE | 2022-07-14 08:38 | XRAY ---
Indication: Seizure. Multiple contiguous axial images obtained through the head without contrast. Comparison: April 26, 2019 Normal appearing brain parenchyma, ventricles, and bony calvarium for patient's age. Visualized paranasal sinuses and mastoid air cells are clear. Impression: Continued normal CT head without contrast exam.
== END 2022-07-13 22:40 | disposition home or self-care (01) ==
LOC: ED 18:36
DX: R56.9 Unspecified convulsions (principal); R51.9 Headache, unspecified; I10 Essential (primary) hypertension; Z79.899 Other long term (current) drug therapy
CPT/HCPCS: 36000; 36415; 70450; 80053; 80307; 81015; 83605; 85025; 96360; 96374; 99284; J1953

== ENCOUNTER 2022-07-26 00:22 | Observation (INO) | payer BC ==
--- NOTE | 2022-07-26 00:44 | ERPHSYRPT ---
- History of Present Illness Time Seen by Provider: 07/26/22 00:40 Source: patient Exam Limitations: no limitations Patient Subjective Stated Complaint: pt states she had several seizures for one month. she states almost every day. pt states she takes keppra 500 bid, and she has been taking her keepra regularly Triage Nursing Assessment: pt is lethargic and appears post ictal. pt is laying on back in bed stating that she is having pain in her whole body following the seizure. pt rates pain in body as 10/10 Physician History: Patient is a 52-year-old female presents to emergency department via EMS for evaluation of seizure. Patient is now coming out of her old postictal. Patient is able to tell us that she has been experiencing seizures daily. Patient's last seizure was yesterday but failed to seek medical help. Patient admits to a history of seizures. She is on Keppra 500 twice a day. Patient denies fever. Patient complains of generalized body aches at this time. Patient attributes her symptoms to her seizures. No associated chest pain. No nausea vomiting or diaphoresis. Symptoms are mild to moderate in intensity. Patient voices no other complaints or concerns at this time. Portions of this note were created with voice recognition technology. There may be grammatical, spelling, punctuation or sound alike errors Timing/Duration: today Severity: moderate Character of Deficits: none Deficits: no difficulties Baseline/Normal Cognition: alert oriented x 3 Current Cognition: alert oriented x 3 Associated Symptoms: seizures, No fever, No nausea, No vomiting, No vision changes, No headache Allergies/Adverse Reactions: latex [Latex] Allergy (Mild, Verified 07/13/22 18:41) olanzapine [From Zyprexa] Allergy (Mild, Verified 07/13/22 18:41) sumatriptan [From Imitrex] Allergy (Verified 07/13/22 18:41) sumatriptan succinate [From Imitrex] Allergy (Verified 07/13/22 18:41) Home Medications: Atorvastatin Calcium [Lipitor] 10 mg PO DAILY 04/02/21 [History] Cyclobenzaprine HCl 10 mg [Cyclobenzaprine 10 MG] 10 mg PO TID 04/02/21 [History] Gabapentin [Neurontin 100 MG] 300 mg PO UD 04/02/21 [History] Loratadine 10 mg [Claritin 10 mg] 10 mg PO DAILY 04/02/21 [History] Losartan/Hydrochlorothiazide [Losartan-Hctz 50-12.5 mg Tab] 1 each PO DAILY 04/02/21 [History] Metoprolol Succinate 25 mg Xl* [Toprol-Xl 25MG Tablets] 25 mg PO DAILY 04/02/21 [History] Omeprazole 20 mg PO DAILY 04/02/21 [History] Hx Tetanus, Diphtheria Vaccination/Date Given: No Hx Influenza Vaccination/Date Given: No Hx Pneumococcal Vaccination/Date Given: No Travel Risk - International Travel Have you traveled outside of the country in past 3 weeks: No - Coronavirus Screening Are you exhibiting any of the following symptoms?: No Close contact with a COVID-19 positive Pt in past 14-21 Days: No - Vaccine Status Have you recieved a Covid-19 vaccination: Yes 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: [employer] - Vaccination Dates Date of 2cond Vaccination (if applicable): unknown - Review of Systems Constitutional: No Symptoms, No Fever, No Chills Eyes: No Symptoms Ears, Nose, & Throat: No Symptoms Respiratory: No Symptoms, No Cough, No Dyspnea Cardiac: No Symptoms, No Chest Pain, No Edema, No Syncope Abdominal/Gastrointestinal: No Symptoms, No Abdominal Pain, No Nausea, No Vomiting, No Diarrhea Genitourinary Symptoms: No Symptoms, No Dysuria Musculoskeletal: No Symptoms, No Back Pain, No Neck Pain Skin: No Symptoms, No Rash Neurological: No Symptoms, No Dizziness, No Focal Weakness, No Sensory Changes Psychological: No Symptoms Endocrine: No Symptoms Hematologic/Lymphatic: No Symptoms Immunological/Allergic: No Symptoms All Other Systems: Reviewed and Negative - Past Medical History Pertinent Past Medical History: Yes Neurological History: Migraines ENT History: No Pertinent History Cardiac History: Hypertension Respiratory History: No Pertinent History Endocrine Medical History: No Pertinent History Musculoskeletal History: No Pertinent History GI Medical History: No Pertinent History History: No Pertinent History Psycho-Social History: No Pertinent History Female Reproductive Disorders: No Pertinent History Other Medical History: PTSD - Past Surgical History Past Surgical History: Yes Neuro Surgical History: No Pertinent History Cardiac: No Pertinent History Respiratory: No Pertinent History Gastrointestinal: No Pertinent History Genitourinary: No Pertinent History Musculoskeletal: No Pertinent History Female Surgical History: Tubal Ligation Other Surgical History: back surgery - Social History Smoking Status: Current every day smoker How long have you smoked: 20+ years Exposure to second hand smoke: Yes Drug Use: none Patient Lives Alone: No Significant Family History: no pertinent family hx - Nursing Vital Signs Nursing Vital Signs: Initial Vital Signs Temperature 98.0 F 07/26/22 00:23 Pulse Rate 100 H 07/26/22 00:23 Respiratory Rate 20 07/26/22 00:23 Blood Pressure 135/76 07/26/22 00:23 O2 Sat by Pulse Oximetry 93 L 07/26/22 00:23 Pain Scale Pain Intensity 8 - Genna Coma Scale Best Eye Response ([place]): (4) open spontaneously Best Verbal Response ([place]): (5) oriented Best Motor Response ([place]): (6) obeys commands Genna Total: 15 - Physical Exam General Appearance: no apparent distress, alert Eye Exam: bilateral eye: normal inspection, PERRL, EOMI Ears, Nose, Throat Exam: normal ENT inspection, moist mucous membranes Neck Exam: normal inspection, non-tender, supple Respiratory: normal breath sounds, lungs clear, airway intact, No respiratory distress Cardiovascular: regular rate/rhythm, No edema Gastrointestinal: soft, No tenderness, No distention Back Exam: normal inspection, No normal range of motion Extremity Exam: normal inspection, No pedal edema Peripheral Pulses: dorsalis-pedis (R): 2+, dorsalis-pedis (L): 2+ 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, 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: 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 hearing, normal speech, PERRL, tongue midline, No abnormal eye position Coordination/Gait: normal finger to nose, normal gait, No normal cerebellar function Motor/Sensory: no motor deficit, no sensory deficit, no pronator drift Skin Exam: normal color, warm, dry, No rash SpO2 Interpretation: normal SpO2: 93 O2 Delivery: Room Air - Course Nursing assessment & vital signs reviewed: Yes EKG Interpreted by Me: RATE (98), Sinus Rhythm, NORMAL AXIS, NORMAL INTERVALS - CT Exams Head CT Interpretation: Tele-radiologist Report (No acute intracranial abnormality) Ordered Tests: Active Orders 24 hr Category Date Time 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 07/26/22 00:36 Active EKG-ER Only STAT Care 07/26/22 00:35 Active IV Insertion STAT Care 07/26/22 00:35 Active Pulse Oximetry (ED) STAT Care 07/26/22 00:35 Active Telemetry q4h Care 07/26/22 02:12 Active HEAD WITHOUT CONTRAST [CT] Stat Exams 07/26/22 00:38 Taken CBC W DIFF Stat Lab 07/26/22 01:19 Completed CMP Stat Lab 07/26/22 01:19 Completed CULTURE,URINE Stat Lab 07/26/22 01:46 Received TROPONIN Q4H Lab 07/26/22 01:19 Completed TROPONIN Q4H Lab 07/26/22 04:45 Ordered TROPONIN Q4H Lab 07/26/22 08:45 Ordered UA W/RFX CULTURE Stat Lab 07/26/22 01:46 Completed Transfer Order Routine Transfer 07/26/22 Ordered Medication Summary Generic Name Dose Route Start Last Admin Trade Name Freq PRN Reason Stop Dose Admin Potassium Chloride 20 meq in 100 mls @ 50 mls/hr 07/26/22 02:15 07/26/22 03:03 Potassium Chloride 20 Meq In Water 100ml IV 07/26/22 06:14 50 mls/hr Q2H NATHANIEL Administration Magnesium Sulfate/Dextrose 100 mls @ 100 mls/hr 07/26/22 02:15 Magnesium 1 Gm / 100 Ml D5w IV 07/26/22 04:14 Q1H NATHANIEL Sodium Chloride 1,000 mls @ 100 mls/hr 07/26/22 02:45 07/26/22 03:03 Sodium Chloride 0.9% 1000 Ml IV 08/25/22 02:44 100 mls/hr .Q10H NATHANIEL Administration Discontinued Medications Generic Name Dose Route Start Last Admin Trade Name Freq PRN Reason Stop Dose Admin Ceftriaxone Sodium/Dextrose 1 g in 50 mls @ 100 mls/hr 07/26/22 02:12 07/26/22 02:40 Rocephin 1 Gm-D5w 50 Ml Bag IV 07/26/22 02:41 100 mls/hr STAT STA 100 mls/hr Administration Ceftriaxone Sodium/Dextrose Confirm 07/26/22 02:34 Rocephin 1 Gm-D5w 50 Ml Bag Administered 07/26/22 02:35 Dose 1 g in 50 mls @ ud IV .STK-MED ONE Lab/Rad Data: Laboratory Result Diagrams 07/26/22 01:19 07/26/22 01:19 Laboratory Results 07/26/22 07/26/22 07/26/22 Range/Units 01:46 01:19 01:19 WBC (4.0-10.5) x10^3/uL RBC (4.1-5.4) x10^6/uL Hgb (12.0-16.0) g/dL Hct (35-47) % MCV (78-100) fL MCH (26-32) pg MCHC (32-36) g/dL RDW (11.5-14.0) % Plt Count (150-450) x10^3/uL MPV (7.5-11.0) fL Gran % (36.0-66.0) % Immature Gran % (Auto) (0.00-0.4) % Nucleat RBC Rel Count (0.00-0.1) % Eos # (Auto) (0-0.5) x10^3/uL Immature Gran # (Auto) (0.00-0.03) x10^3u/L Absolute Lymphs (auto) (1.0-4.6) x10^3/uL Absolute Monos (auto) (0.0-1.3) x10^3/uL Absolute Nucleated RBC (0.00-0.01) x10^3u/L Lymphocytes % (24.0-44.0) % Monocytes % (0.0-12.0) % Eosinophils % (0.00-5.0) % Basophils % (0.0-0.4) % Absolute Granulocytes (1.4-6.9) x10^3/uL Basophils # (0-0.4) x10^3/uL Sodium (137-145) mmol/L Potassium (3.5-5.1) mmol/L Chloride (98-107) mmol/L Carbon Dioxide (22-30) mmol/L Anion Gap (5-15) MEQ/L BUN (7-17) mg/dL Creatinine (0.52-1.04) mg/dL Estimated GFR ML/MIN Glucose (74-106) mg/dL Calcium (8.4-10.2) mg/dL Total Bilirubin (0.2-1.3) mg/dL AST (14-36) U/L ALT (0-35) U/L Alkaline Phosphatase (38-126) U/L Troponin I < 0.012 (0.000-0.034) ng/mL Serum Total Protein (6.3-8.2) g/dL Albumin (3.5-5.0) g/dL Urinalys Dipstick Clnc MAIN LAB Urine Color PINK (YELLOW) Urine Appearance CLEAR (CLEAR) Urine pH 5.5 (5-6) Ur Specific [place] 1.010 (1.005-1.025) POC Urine Protein Conf 30 (Negative) Urine Ketones NEGATIVE (NEGATIVE) Urine Nitrite NEGATIVE (NEGATIVE) Urine Bilirubin NEGATIVE (NEGATIVE) Urine Urobilinogen 0.2 (0-1) mg/dL Urine Leukocytes TRACE (NEGATIVE) Urine WBC (Auto) 6-10 (0-5) /HPF Urine RBC (Auto) >101 (0-2) /HPF U Epithel Cells (Auto) RARE (FEW) /HPF Urine Bacteria (Auto) RARE (NEGATIVE) /HPF Urine RBC LARGE (0-5) Armando/ul Unidentified Crystals 10-25 (NEGATIVE) /HPF Ur Culture Indicated? YES Urine Glucose NEGATIVE (NEGATIVE) mg/dL Influenza Type A Ag NEGATIVE (NEGATIVE) Influenza Type B Ag NEGATIVE (NEGATIVE) RSV (PCR) NEGATIVE (Negative) SARS-CoV-2 (PCR) NEGATIVE (NEGATIVE) 07/26/22 07/26/22 Range/Units 01:19 01:19 WBC 7.8 (4.0-10.5) x10^3/uL RBC 4.21 (4.1-5.4) x10^6/uL Hgb 12.6 (12.0-16.0) g/dL Hct 39.9 (35-47) % MCV 94.8 (78-100) fL MCH 29.9 (26-32) pg MCHC 31.6 L (32-36) g/dL RDW 13.1 (11.5-14.0) % Plt Count 351 (150-450) x10^3/uL MPV 9.7 (7.5-11.0) fL Gran % 55.1 (36.0-66.0) % Immature Gran % (Auto) 0.4 (0.00-0.4) % Nucleat RBC Rel Count 0.0 (0.00-0.1) % Eos # (Auto) 0.29 (0-0.5) x10^3/uL Immature Gran # (Auto) 0.03 (0.00-0.03) x10^3u/L Absolute Lymphs (auto) 2.69 (1.0-4.6) x10^3/uL Absolute Monos (auto) 0.42 (0.0-1.3) x10^3/uL Absolute Nucleated RBC 0.00 (0.00-0.01) x10^3u/L Lymphocytes % 34.6 (24.0-44.0) % Monocytes % 5.4 (0.0-12.0) % Eosinophils % 3.7 (0.00-5.0) % Basophils % 0.8 (0.0-0.4) % Absolute Granulocytes 4.28 (1.4-6.9) x10^3/uL Basophils # 0.06 (0-0.4) x10^3/uL Sodium 138 (137-145) mmol/L Potassium 3.3 L (3.5-5.1) mmol/L Chloride 103 (98-107) mmol/L Carbon Dioxide 27 (22-30) mmol/L Anion Gap 10.7 (5-15) MEQ/L BUN 8 (7-17) mg/dL Creatinine 0.97 (0.52-1.04) mg/dL Estimated GFR > 60.0 ML/MIN Glucose 155 H (74-106) mg/dL Calcium 8.3 L (8.4-10.2) mg/dL Total Bilirubin 0.20 (0.2-1.3) mg/dL AST 19 (14-36) U/L ALT 16 (0-35) U/L Alkaline Phosphatase 59 (38-126) U/L Troponin I (0.000-0.034) ng/mL Serum Total Protein 6.5 (6.3-8.2) g/dL Albumin 3.7 (3.5-5.0) g/dL Urinalys Dipstick Clnc Urine Color (YELLOW) Urine Appearance (CLEAR) Urine pH (5-6) Ur Specific [place] (1.005-1.025) POC Urine Protein Conf (Negative) Urine Ketones (NEGATIVE) Urine Nitrite (NEGATIVE) Urine Bilirubin (NEGATIVE) Urine Urobilinogen (0-1) mg/dL Urine Leukocytes (NEGATIVE) Urine WBC (Auto) (0-5) /HPF Urine RBC (Auto) (0-2) /HPF U Epithel Cells (Auto) (FEW) /HPF Urine Bacteria (Auto) (NEGATIVE) /HPF Urine RBC (0-5) Armando/ul Unidentified Crystals (NEGATIVE) /HPF Ur Culture Indicated? Urine Glucose (NEGATIVE) mg/dL Influenza Type A Ag (NEGATIVE) Influenza Type B Ag (NEGATIVE) RSV (PCR) (Negative) SARS-CoV-2 (PCR) (NEGATIVE) - Progress Progress: improved Progress Note: Patient reassessed. Repeat neuro exam within normal limits. Patient conversant well-appearing and in no distress. No injury to her tongue. CT head negative. Vital stable. Recurrent seizures of unclear etiology. However today's work- up reveals a urinary tract infection and hypokalemia. This may contribute to decreasing seizure threshold. Patient receiving antibiotics. Patient also received potassium replacement. Patient also received 2 g of magnesium. In light of patient's recurrent seizures over the past month and worsening over the past several days we will admit for further evaluation and treatment. Keppra level pending. Keppra level is a send out. Case discussed with Dr. Rachel who accepts admission to observation. Plan of care discussed with patient. She agrees to admission [facility] for further evaluation and treatment. Portions of this note were created with voice recognition technology. There may be grammatical, spelling, punctuation or sound alike errors 07/26/22 03:52 07/26/22 03:54 Discussed with DrCaro: Larry Will see patient in: hospital (observation) Counseled pt/family regarding: lab results, diagnosis, rad results - Departure Departure Disposition: Observation Clinical Impression: Seizure, UTI (urinary tract infection), Hypokalemia Condition: Stable Critical Care Time: No Referrals: MAIA BARRAZA MD [Primary Care Provider] - Follow up/PCP as directed
[2022-07-26 01:24] LABS: Absolute Neutrophil Ct (ANC) 4.28 x10^3/uL (1.4-6.9); Basophil (Absolute #) 0.06 x10^3/uL (0-0.4); Eosinophil % 3.7 % (0.00-5.0); Eosinophil (Absolute #) 0.29 x10^3/uL (0-0.5); Hematocrit 39.9 % (35-47); Hemoglobin 12.6 g/dL (12.0-16.0); Lymphocyte (Absolute #) 2.69 x10^3/uL (1.0-4.6); Lymphocytes % 34.6 % (24.0-44.0); Mean Cell Volume 94.8 fL (78-100); Mean Corpuscular Hemoglobin 29.9 pg (26-32); Mean Corpuscular Hgb Concent. 31.6 g/dL (32-36); Mean Platelet Volume 9.7 fL (7.5-11.0); Monocyte (Absolute #) 0.42 x10^3/uL (0.0-1.3); Monocytes % 5.4 % (0.0-12.0); Neutrophil % 55.1 % (36.0-66.0); Platelet Count 351 x10^3/uL (150-450); Red Blood Count 4.21 x10^6/uL (4.1-5.4); Red Cell Distribution Width 13.1 % (11.5-14.0); White Blood Count 7.8 x10^3/uL (4.0-10.5)
[2022-07-26 01:32] LABS: ALBUMIN 3.7 g/dL (3.5-5.0); ALKALINE PHOSPHATASE 59 U/L (38-126); ANION GAP 10.7 MEQ/L (5-15); BLOOD UREA NITROGEN 8 mg/dL (7-17); CHLORIDE 103 mmol/L (98-107); Calcium 8.3 mg/dL (8.4-10.2); Carbon Dioxide 27 mmol/L (22-30); Creatinine 1 0.97 mg/dL (0.52-1.04); EST GLOMERULAR FILTRATION RATE > 60.0 ML/MIN; Glucose 155 mg/dL (74-106); Potassium 3.3 mmol/L (3.5-5.1); SGOT/AST 19 U/L (14-36); SGPT/ALT 16 U/L (0-35); SODIUM 138 mmol/L (137-145); Total Protein 6.5 g/dL (6.3-8.2)
[2022-07-26 01:44] LABS: Epithelial Cells RARE /HPF (FEW)
[2022-07-26 01:46] LABS: Appearance CLEAR (CLEAR); Bilirubin NEGATIVE (NEGATIVE); Dipstick done @ ? MAIN LAB; Glucose NEGATIVE (NEGATIVE); Ketones NEGATIVE (NEGATIVE); Nitrite NEGATIVE (NEGATIVE); Ph 5.5 (5-6); Protein,Urine Dip 30 (Negative); RBC LARGE Ery/ul (0-5); Urobilinogen 0.2 mg/dL (0-1)
[2022-07-26 01:47] LABS: Bacteria RARE /HPF (NEGATIVE); RBC >101 /HPF (0-2); Urine Cultured Indicated? YES
[2022-07-26 02:00] LABS: INFLUENZA A NEGATIVE (NEGATIVE); INFLUENZA B NEGATIVE (NEGATIVE); RESPIRATORY SYNCTIAL VIRUS NEGATIVE (Negative); SARS-CoV-2 Xpert Express NEGATIVE (NEGATIVE)
[2022-07-26] MEDS ORDERED: ROCEPHIN 1 Gm-D5w 50 ml Bag** 1 G/50 ML IVPB IV STA (02:12)
[2022-07-26] MEDS ORDERED: ROCEPHIN 1 Gm-D5w 50 ml Bag** 1 G/50 ML IVPB IV ONE (02:34)
[2022-07-26] MEDS: Sodium Chloride 0.9% 1000 ML 1,000 ML IV SCH ×3 (03:03→22:44)
[2022-07-26] MEDS: POTASSIUM CHLORIDE 20 mEq IN WATER 100ML 20 MEQ/100 ML BAG IV SCH ×2 (03:03→04:31)
[2022-07-26] MEDS ORDERED: MORPHINE SULFATE 2 MG INJ IV PRN (04:13)
[2022-07-26] MEDS ORDERED: Sodium Chloride 0.9% 1000 ML 1,000 ML IV SCH (04:13)
[2022-07-26] MEDS ORDERED: HYDROCODONE-ACETAMIN 10-325 MG PO PRN (05:50)
[2022-07-26] MEDS: Magnesium 1 Gm / 100 Ml D5W*** 100 ML IV SCH ×4 (07:26→08:59)
--- NOTE | 2022-07-26 08:52 | XRAY ---
Indication: Recurrent seizures. Multiple contiguous axial images obtained through the head without contrast. Comparison: July 13, 2022 Normal appearing brain parenchyma, ventricles, and bony calvarium. Visualized paranasal sinuses and mastoid air cells are clear. Impression: Continued normal CT head without contrast exam. Comment: Preliminary interpretation made by [facility]. No critical discrepancy.
[2022-07-26] MEDS ORDERED: FLUZONE QUAD 2022-2023 SYRINGE IM ONE (10:00)
--- NOTE | 2022-07-26 11:42 | XRAY ---
Indication: Increasing seizure activity. Sagittal, coronal, and axial MRI brain performed without contrast using T1, T2, FLAIR, diffusion, and ADC sequences. Comparison: None Ventriculosulcal pattern appears symmetric. A few periventricular petechial T2 signal intensities bilaterally favors degenerative micro-ischemia. No acute intracranial hemorrhage, abnormal extra-axial fluid collection, or mass effect. Diffusion images are negative for restricted signal. No evidence for mesial temporal sclerosis. Fourth ventricle is midline without hydrocephalus. 7/8 cranial nerve complex bilaterally symmetric. Normal flow void signal within the major intracerebral circulation. Normal appearing craniocervical junction and sella turcica. Paranasal sinuses are clear. Impression: A few degenerative micro-ischemia signal within normal limits for patient's age. Remaining MRI brain without contrast exam is negative.
[2022-07-26] MEDS: hydroDIURIL 25 MG PO SCH (12:09)
[2022-07-26] MEDS: KEPPRA PO SCH ×2 (12:09→21:06)
[2022-07-26] MEDS: Protonix 40MG Tablet PO SCH (12:09)
[2022-07-26] MEDS: Cozaar 50 MG PO SCH (12:09)
[2022-07-26] MEDS: Zocor 10MG PO SCH (12:10)
[2022-07-26] MEDS: Klor Con PO SCH (12:10)
[2022-07-26] MEDS: Lexapro PO SCH (12:10)
[2022-07-26] MEDS: Ativan 2 MG/1 ML VIAL IV PRN (12:50)
[2022-07-26] MEDS ORDERED: ROCEPHIN 1 Gm-D5w 50 ml Bag** 1 G/50 ML IVPB IV SCH (14:33)
--- NOTE | 2022-07-26 14:37 | PCM.HP ---
History of Present Illness - Chief Complaint Chief Complaint: seizure, hypokalemia History of Present Illness: is a 52 year old female pt of Dr. Lolita Kenny in [place] with hx migraines, PTSD, back surgery, and sz d/o who was admitted through ER with UTI, hypokalemia, worsening seizures. Her CT head was nonacute. K+ 3.3. Given rocephin in ER for UTI. She had been dx with epilepsy at [facility] by a neurologist in 2010. She had been seizure free for years without meds. In the past 1 mo she has begun having more seizures; have been daily until the past week, when she sometimes has 2-3 sz every few hours. Three days ago she fell face first into the floor. She had an ER visit in which she got extra keppra and valium. Pt says she can tell when the seizures are coming. She falls down and thrashes her arms. She can hear people but can't answer them. Sometimes has urinary incontinence. - Review of Systems Cardiac: Edema (LE and some UE after having more sz) Genitourinary Symptoms: Vaginal Bleeding (yesterday, after > 1 yr of not having menses) Psychological: Anxiety, Depression All Other Systems: Reviewed and Negative Medications & Allergies Home Medications: Home Medication List Atorvastatin Calcium [Lipitor] 10 mg PO DAILY 04/02/21 [History Confirmed 07/26/22] Cyclobenzaprine HCl 10 mg [Cyclobenzaprine 10 MG] 10 mg PO TID 04/02/21 [History Confirmed 07/26/22] Losartan/Hydrochlorothiazide [Losartan-Hctz 50-12.5 mg Tab] 1 each PO DAILY 04/02/21 [History Confirmed 07/26/22] Metoprolol Succinate 25 mg Xl* [Toprol-Xl 25MG Tablets] 25 mg PO HS 04/02/21 [History Confirmed 07/26/22] Omeprazole 40 mg PO DAILY 04/02/21 [History Confirmed 07/26/22] Escitalopram Oxalate 10 mg PO DAILY 07/26/22 [History Confirmed 07/26/22] Hydrocodone/Acetaminophen [Hydrocodone-Acetamin 10-325 mg] 1 tablet PO TID 07/26/22 [History Confirmed 07/26/22] Levetiracetam [Keppra] 500 mg PO BID 07/26/22 [History Confirmed 07/26/22] Potassium Chloride Tab* [Klor Con] 1 tab PO DAILY 07/26/22 [History Confirmed 07/26/22] Allergies/Adverse Reactions: Allergies Allergy/AdvReac Type Severity Reaction Status Date / Time latex [Latex] Allergy Mild Verified 07/13/22 18:41 olanzapine [From Zyprexa] Allergy Mild Verified 07/13/22 18:41 sumatriptan [From Imitrex] Allergy Verified 07/13/22 18:41 sumatriptan succinate Allergy Verified 07/13/22 18:41 [From Imitrex] - Past Medical History Past Medical History: Yes Neurological History: Migraines, Seizures ENT History: No Pertinent History Cardiac History: Hypertension Respiratory History: No Pertinent History Endocrine Medical History: No Pertinent History Musculoskelatal History: Osteoarthritis GI Medical History: GERD History: No Pertinent History Pyscho-Social History: No Pertinent History Reproductive Disorders: No Pertinent History Comment: PTSD, chronic back pain, restless legs syndrome - Past Surgical History Past Surgical History: Yes Neuro Surgical History: No Pertinent History Cardiac History: No Pertinent History Respiratory Surgery: No Pertinent History GI Surgical History: No Pertinent History Genitourinary Surgical Hx: No Pertinent History Musculskeletal Surgical Hx: No Pertinent History Female Surgical History: Tubal Ligation Other Surgical History: back surgery - Social History Smoking Status: Current every day smoker How long have you smoked: years Exposure to second hand smoke: Yes Alcohol: None Drug Use: none Significant Family History: no pertinent family hx - Physical Exam Vital Signs: Vital Signs - 24 hr Temp Pulse Resp BP Pulse Ox 07/26/22 12:50 20 07/26/22 12:00 97.1 F 87 16 144/63 98 07/26/22 07:31 96.8 F 81 16 129/62 95 07/26/22 04:39 97 F 92 H 18 107/50 95 07/26/22 04:14 102 H 18 99/46 95 07/26/22 03:55 93 L 07/26/22 02:05 94 H 18 99/46 94 L 07/26/22 01:23 93 H 18 99/54 96 07/26/22 00:48 94 L 07/26/22 00:23 98.0 F 100 H 20 135/76 93 L General Appearance: no apparent distress, alert Neurologic Exam: oriented x 3, cooperative, other (CN III, IV, and -XII intact. Deficient CN V2-V3 on the R.) Eye Exam: eyes nml inspection Ears, Nose, Throat Exam: moist mucous membranes Neck Exam: normal inspection, non-tender, No lymphadenopathy, No subcutaneous emphysema, No thyromegaly Respiratory Exam: normal breath sounds, lungs clear, No crackles/rales, No rhonchi, No wheezing Cardiovascular Exam: regular rate/rhythm, normal heart sounds, No murmur Gastrointestinal/Abdomen Exam: soft, normal bowel sounds, No tenderness, No distention, No mass, No guarding, No rebound Back Exam: normal inspection, No rash Extremity Exam: normal inspection, No pedal edema, No swelling Skin Exam: normal color, warm, dry, No rash Results - Labs Lab/Micro Results: Lab Results-Last 24 Hours 07/26/22 07/26/22 07/26/22 Range/Units 01:19 01:19 01:19 WBC 7.8 (4.0-10.5) x10^3/uL RBC 4.21 (4.1-5.4) x10^6/uL Hgb 12.6 (12.0-16.0) g/dL Hct 39.9 (35-47) % MCV 94.8 (78-100) fL MCH 29.9 (26-32) pg MCHC 31.6 L (32-36) g/dL RDW 13.1 (11.5-14.0) % Plt Count 351 (150-450) x10^3/uL MPV 9.7 (7.5-11.0) fL Gran % 55.1 (36.0-66.0) % Immature Gran % (Auto) 0.4 (0.00-0.4) % Nucleat RBC Rel Count 0.0 (0.00-0.1) % Eos # (Auto) 0.29 (0-0.5) x10^3/uL Immature Gran # (Auto) 0.03 (0.00-0.03) x10^3u/L Absolute Lymphs (auto) 2.69 (1.0-4.6) x10^3/uL Absolute Monos (auto) 0.42 (0.0-1.3) x10^3/uL Absolute Nucleated RBC 0.00 (0.00-0.01) x10^3u/L Lymphocytes % 34.6 (24.0-44.0) % Monocytes % 5.4 (0.0-12.0) % Eosinophils % 3.7 (0.00-5.0) % Basophils % 0.8 (0.0-0.4) % Absolute Granulocytes 4.28 (1.4-6.9) x10^3/uL Basophils # 0.06 (0-0.4) x10^3/uL Sodium 138 (137-145) mmol/L Potassium 3.3 L (3.5-5.1) mmol/L Chloride 103 (98-107) mmol/L Carbon Dioxide 27 (22-30) mmol/L Anion Gap 10.7 (5-15) MEQ/L BUN 8 (7-17) mg/dL Creatinine 0.97 (0.52-1.04) mg/dL Estimated GFR > 60.0 ML/MIN Glucose 155 H (74-106) mg/dL Calcium 8.3 L (8.4-10.2) mg/dL Total Bilirubin 0.20 (0.2-1.3) mg/dL AST 19 (14-36) U/L ALT 16 (0-35) U/L Alkaline Phosphatase 59 (38-126) U/L Troponin I < 0.012 (0.000-0.034) ng/mL Serum Total Protein 6.5 (6.3-8.2) g/dL Albumin 3.7 (3.5-5.0) g/dL Urinalys Dipstick Clnc Urine Color (YELLOW) Urine Appearance (CLEAR) Urine pH (5-6) Ur Specific Webster (1.005-1.025) POC Urine Protein Conf (Negative) Urine Ketones (NEGATIVE) Urine Nitrite (NEGATIVE) Urine Bilirubin (NEGATIVE) Urine Urobilinogen (0-1) mg/dL Urine Leukocytes (NEGATIVE) Urine WBC (Auto) (0-5) /HPF Urine RBC (Auto) (0-2) /HPF U Epithel Cells (Auto) (FEW) /HPF Urine Bacteria (Auto) (NEGATIVE) /HPF Urine RBC (0-5) Armando/ul Unidentified Crystals (NEGATIVE) /HPF Ur Culture Indicated? Urine Glucose (NEGATIVE) mg/dL Influenza Type A Ag (NEGATIVE) Influenza Type B Ag (NEGATIVE) RSV (PCR) (Negative) SARS-CoV-2 (PCR) (NEGATIVE) 07/26/22 07/26/22 07/26/22 Range/Units 01:19 01:46 05:19 WBC (4.0-10.5) x10^3/uL RBC (4.1-5.4) x10^6/uL Hgb (12.0-16.0) g/dL Hct (35-47) % MCV (78-100) fL MCH (26-32) pg MCHC (32-36) g/dL RDW (11.5-14.0) % Plt Count (150-450) x10^3/uL MPV (7.5-11.0) fL Gran % (36.0-66.0) % Immature Gran % (Auto) (0.00-0.4) % Nucleat RBC Rel Count (0.00-0.1) % Eos # (Auto) (0-0.5) x10^3/uL Immature Gran # (Auto) (0.00-0.03) x10^3u/L Absolute Lymphs (auto) (1.0-4.6) x10^3/uL Absolute Monos (auto) (0.0-1.3) x10^3/uL Absolute Nucleated RBC (0.00-0.01) x10^3u/L Lymphocytes % (24.0-44.0) % Monocytes % (0.0-12.0) % Eosinophils % (0.00-5.0) % Basophils % (0.0-0.4) % Absolute Granulocytes (1.4-6.9) x10^3/uL Basophils # (0-0.4) x10^3/uL Sodium (137-145) mmol/L Potassium (3.5-5.1) mmol/L Chloride (98-107) mmol/L Carbon Dioxide (22-30) mmol/L Anion Gap (5-15) MEQ/L BUN (7-17) mg/dL Creatinine (0.52-1.04) mg/dL Estimated GFR ML/MIN Glucose (74-106) mg/dL Calcium (8.4-10.2) mg/dL Total Bilirubin (0.2-1.3) mg/dL AST (14-36) U/L ALT (0-35) U/L Alkaline Phosphatase (38-126) U/L Troponin I < 0.012 (0.000-0.034) ng/mL Serum Total Protein (6.3-8.2) g/dL Albumin (3.5-5.0) g/dL Urinalys Dipstick Clnc MAIN LAB Urine Color PINK (YELLOW) Urine Appearance CLEAR (CLEAR) Urine pH 5.5 (5-6) Ur Specific Webster 1.010 (1.005-1.025) POC Urine Protein Conf 30 (Negative) Urine Ketones NEGATIVE (NEGATIVE) Urine Nitrite NEGATIVE (NEGATIVE) Urine Bilirubin NEGATIVE (NEGATIVE) Urine Urobilinogen 0.2 (0-1) mg/dL Urine Leukocytes TRACE (NEGATIVE) Urine WBC (Auto) 6-10 (0-5) /HPF Urine RBC (Auto) >101 (0-2) /HPF U Epithel Cells (Auto) RARE (FEW) /HPF Urine Bacteria (Auto) RARE (NEGATIVE) /HPF Urine RBC LARGE (0-5) Armando/ul Unidentified Crystals 10-25 (NEGATIVE) /HPF Ur Culture Indicated? YES Urine Glucose NEGATIVE (NEGATIVE) mg/dL Influenza Type A Ag NEGATIVE (NEGATIVE) Influenza Type B Ag NEGATIVE (NEGATIVE) RSV (PCR) NEGATIVE (Negative) SARS-CoV-2 (PCR) NEGATIVE (NEGATIVE) 07/26/22 07/26/22 Range/Units 08:44 12:32 WBC (4.0-10.5) x10^3/uL RBC (4.1-5.4) x10^6/uL Hgb (12.0-16.0) g/dL Hct (35-47) % MCV (78-100) fL MCH (26-32) pg MCHC (32-36) g/dL RDW (11.5-14.0) % Plt Count (150-450) x10^3/uL MPV (7.5-11.0) fL Gran % (36.0-66.0) % Immature Gran % (Auto) (0.00-0.4) % Nucleat RBC Rel Count (0.00-0.1) % Eos # (Auto) (0-0.5) x10^3/uL Immature Gran # (Auto) (0.00-0.03) x10^3u/L Absolute Lymphs (auto) (1.0-4.6) x10^3/uL Absolute Monos (auto) (0.0-1.3) x10^3/uL Absolute Nucleated RBC (0.00-0.01) x10^3u/L Lymphocytes % (24.0-44.0) % Monocytes % (0.0-12.0) % Eosinophils % (0.00-5.0) % Basophils % (0.0-0.4) % Absolute Granulocytes (1.4-6.9) x10^3/uL Basophils # (0-0.4) x10^3/uL Sodium (137-145) mmol/L Potassium 3.6 (3.5-5.1) mmol/L Chloride (98-107) mmol/L Carbon Dioxide (22-30) mmol/L Anion Gap (5-15) MEQ/L BUN (7-17) mg/dL Creatinine (0.52-1.04) mg/dL Estimated GFR ML/MIN Glucose (74-106) mg/dL Calcium (8.4-10.2) mg/dL Total Bilirubin (0.2-1.3) mg/dL AST (14-36) U/L ALT (0-35) U/L Alkaline Phosphatase (38-126) U/L Troponin I < 0.012 (0.000-0.034) ng/mL Serum Total Protein (6.3-8.2) g/dL Albumin (3.5-5.0) g/dL Urinalys Dipstick Clnc Urine Color (YELLOW) Urine Appearance (CLEAR) Urine pH (5-6) Ur Specific Webster (1.005-1.025) POC Urine Protein Conf (Negative) Urine Ketones (NEGATIVE) Urine Nitrite (NEGATIVE) Urine Bilirubin (NEGATIVE) Urine Urobilinogen (0-1) mg/dL Urine Leukocytes (NEGATIVE) Urine WBC (Auto) (0-5) /HPF Urine RBC (Auto) (0-2) /HPF U Epithel Cells (Auto) (FEW) /HPF Urine Bacteria (Auto) (NEGATIVE) /HPF Urine RBC (0-5) Armando/ul Unidentified Crystals (NEGATIVE) /HPF Ur Culture Indicated? Urine Glucose (NEGATIVE) mg/dL Influenza Type A Ag (NEGATIVE) Influenza Type B Ag (NEGATIVE) RSV (PCR) (Negative) SARS-CoV-2 (PCR) (NEGATIVE) Microbiology 07/26/22 01:46 Urine Culture - Preliminary Urine, Void NO GROWTH TO DATE - Radiology Impressions Radiology Exams & Impressions: Radiology Procedures Category Date Time Status HEAD WITHOUT CONTRAST [CT] Stat Exams 07/26/22 00:38 Completed MRI BRAIN W/O CONTRAST [MRI] Routine Exams 07/26/22 08:53 Completed Assessment/Plan (1) Seizure Current Visit: Yes Status: Acute Assessment & Plan: I saw the pt this morning, and just spoke to nursing staff - pt's brother came out to get them, pt was having seizure. Her eyes were closed (rapid eye movements visible) - ativan given and pt sleeping soundly. Pt had EEG earlier - immediately began seizure-like movements as soon as photic stimulation started; did seem to respond to staff. MRI brain nonacute. I did increase her keppra this morning from 500mg po BID to 1000mg po BID. There is a keppra level pending that will be back tomorrow. 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 Consulting teleneurology, thank you. Code(s): R56.9 - UNSPECIFIED CONVULSIONS (2) Hypokalemia Current Visit: Yes Status: Acute Assessment & Plan: mild. Code(s): E87.6 - HYPOKALEMIA (3) UTI (urinary tract infection) Current Visit: Yes Status: Acute Qualifiers: Urinary tract infection type: acute cystitis Hematuria presence: with hematuria Qualified Code(s): N30.01 - Acute cystitis with hematuria Assessment & Plan: rocephin. cx pending. Code(s): N39.0 - URINARY TRACT INFECTION, SITE NOT SPECIFIED
[2022-07-26] MEDS: Cyclobenzaprine 10 MG PO SCH ×2 (17:25→21:05)
[2022-07-26] MEDS: HYDROCODONE-ACETAMIN 10-325 MG PO SCH ×2 (17:25→21:06)
[2022-07-26] MEDS: ROCEPHIN 1 Gm-D5w 50 ml Bag** 1 G/50 ML IVPB IV SCH (21:05)
[2022-07-26] MEDS: Toprol-Xl 25MG Tablets PO SCH (21:07)
[2022-07-27 04:48] LABS: Absolute Neutrophil Ct (ANC) 4.09 x10^3/uL (1.4-6.9); Basophil (Absolute #) 0.03 x10^3/uL (0-0.4); Eosinophil % 3.5 % (0.00-5.0); Eosinophil (Absolute #) 0.25 x10^3/uL (0-0.5); Hematocrit 37.5 % (35-47); Lymphocyte (Absolute #) 2.51 x10^3/uL (1.0-4.6); Lymphocytes % 34.8 % (24.0-44.0); Mean Cell Volume 93.5 fL (78-100); Mean Corpuscular Hemoglobin 29.9 pg (26-32); Mean Platelet Volume 9.5 fL (7.5-11.0); Monocytes % 4.2 % (0.0-12.0); Neutrophil % 56.7 % (36.0-66.0); Platelet Count 307 x10^3/uL (150-450); Red Blood Count 4.01 x10^6/uL (4.1-5.4); Red Cell Distribution Width 13.2 % (11.5-14.0); White Blood Count 7.2 x10^3/uL (4.0-10.5)
[2022-07-27 05:11] LABS: ALBUMIN 3.3 g/dL (3.5-5.0); ALKALINE PHOSPHATASE 46 U/L (38-126); ANION GAP 6.7 MEQ/L (5-15); BLOOD UREA NITROGEN 9 mg/dL (7-17); CHLORIDE 107 mmol/L (98-107); Calcium 7.6 mg/dL (8.4-10.2); Carbon Dioxide 27 mmol/L (22-30); Creatinine 1 0.84 mg/dL (0.52-1.04); EST GLOMERULAR FILTRATION RATE > 60.0 ML/MIN; Glucose 158 mg/dL (74-106); Potassium 3.6 mmol/L (3.5-5.1); SGOT/AST 17 U/L (14-36); SGPT/ALT 14 U/L (0-35); SODIUM 136 mmol/L (137-145); Total Protein 6.1 g/dL (6.3-8.2)
[2022-07-27] MEDS: Sodium Chloride 0.9% 1000 ML 1,000 ML IV SCH (06:14)
--- NOTE | 2022-07-27 08:31 | PCM.NOTE ---
Date and Time: 07/27/22824 Subjective Assessment: She is feeling dizzy this morning when she sits up. Teleneuro not done yesterday; she had had a seizure and was given ativan and was sleepy the rest of the day. - Review of Systems Constitutional: Fatigue, No Fever Objective Exam General Appearance: no apparent distress, obese Neurologic Exam: oriented x 3, cooperative Skin Exam: normal color, warm, dry, No rash Eye Exam: eyes nml inspection Ears, Nose, Throat Exam: moist mucous membranes Neck Exam: normal inspection Respiratory Exam: normal breath sounds, lungs clear, No crackles/rales, No rhonchi, No wheezing Cardiovascular Exam: regular rate/rhythm, normal heart sounds, No murmur Extremity Exam: normal inspection, No swelling, No tenderness Back Exam: normal inspection, No rash OBJECTIVE DATA Vital Signs: Vital Signs - 24 hr Temp Pulse Resp BP Pulse Ox 07/27/22 08:08 91 H 128/61 07/27/22 08:00 91 H 137/73 07/27/22 07:33 96.9 F 90 17 113/62 98 07/27/22 03:50 97.5 F 82 20 127/62 95 07/26/22 23:36 96.9 F 87 17 138/65 95 07/26/22 20:00 96.9 F 94 H 18 142/71 95 07/26/22 16:00 97.3 F 81 16 120/57 94 L 07/26/22 12:52 97.1 F 89 27 H 131/61 98 07/26/22 12:50 20 07/26/22 12:00 97.1 F 87 16 144/63 98 Pain Assessment - Last Documented Pain Intensity 0 Pain Scale Used 0-10 Pain Scale Intake and Output: Intake & Output 07/24/22 07/25/22 07/26/22 07/27/22 11:59 11:59 11:59 11:59 Intake Total 240 4152 Output Total 400 2500 Balance -160 1652 Weight 86.3 kg Lab Results: Lab Results-Last 24 Hours 07/26/22 07/26/22 07/27/22 Range/Units 08:44 12:32 04:40 WBC 7.2 (4.0-10.5) x10^3/uL RBC 4.01 L (4.1-5.4) x10^6/uL Hgb 12.0 (12.0-16.0) g/dL Hct 37.5 (35-47) % MCV 93.5 (78-100) fL MCH 29.9 (26-32) pg MCHC 32.0 (32-36) g/dL RDW 13.2 (11.5-14.0) % Plt Count 307 (150-450) x10^3/uL MPV 9.5 (7.5-11.0) fL Gran % 56.7 (36.0-66.0) % Immature Gran % (Auto) 0.4 (0.00-0.4) % Nucleat RBC Rel Count 0.0 (0.00-0.1) % Eos # (Auto) 0.25 (0-0.5) x10^3/uL Immature Gran # (Auto) 0.03 (0.00-0.03) x10^3u/L Absolute Lymphs (auto) 2.51 (1.0-4.6) x10^3/uL Absolute Monos (auto) 0.30 (0.0-1.3) x10^3/uL Absolute Nucleated RBC 0.00 (0.00-0.01) x10^3u/L Lymphocytes % 34.8 (24.0-44.0) % Monocytes % 4.2 (0.0-12.0) % Eosinophils % 3.5 (0.00-5.0) % Basophils % 0.4 (0.0-0.4) % Absolute Granulocytes 4.09 (1.4-6.9) x10^3/uL Basophils # 0.03 (0-0.4) x10^3/uL Sodium (137-145) mmol/L Potassium 3.6 (3.5-5.1) mmol/L Chloride (98-107) mmol/L Carbon Dioxide (22-30) mmol/L Anion Gap (5-15) MEQ/L BUN (7-17) mg/dL Creatinine (0.52-1.04) mg/dL Estimated GFR ML/MIN Glucose (74-106) mg/dL Calcium (8.4-10.2) mg/dL Magnesium (1.6-2.3) mg/dL Total Bilirubin (0.2-1.3) mg/dL AST (14-36) U/L ALT (0-35) U/L Alkaline Phosphatase (38-126) U/L Troponin I < 0.012 (0.000-0.034) ng/mL Serum Total Protein (6.3-8.2) g/dL Albumin (3.5-5.0) g/dL 07/27/22 Range/Units 04:40 WBC (4.0-10.5) x10^3/uL RBC (4.1-5.4) x10^6/uL Hgb (12.0-16.0) g/dL Hct (35-47) % MCV (78-100) fL MCH (26-32) pg MCHC (32-36) g/dL RDW (11.5-14.0) % Plt Count (150-450) x10^3/uL MPV (7.5-11.0) fL Gran % (36.0-66.0) % Immature Gran % (Auto) (0.00-0.4) % Nucleat RBC Rel Count (0.00-0.1) % Eos # (Auto) (0-0.5) x10^3/uL Immature Gran # (Auto) (0.00-0.03) x10^3u/L Absolute Lymphs (auto) (1.0-4.6) x10^3/uL Absolute Monos (auto) (0.0-1.3) x10^3/uL Absolute Nucleated RBC (0.00-0.01) x10^3u/L Lymphocytes % (24.0-44.0) % Monocytes % (0.0-12.0) % Eosinophils % (0.00-5.0) % Basophils % (0.0-0.4) % Absolute Granulocytes (1.4-6.9) x10^3/uL Basophils # (0-0.4) x10^3/uL Sodium 136 L (137-145) mmol/L Potassium 3.6 (3.5-5.1) mmol/L Chloride 107 (98-107) mmol/L Carbon Dioxide 27 (22-30) mmol/L Anion Gap 6.7 (5-15) MEQ/L BUN 9 (7-17) mg/dL Creatinine 0.84 (0.52-1.04) mg/dL Estimated GFR > 60.0 ML/MIN Glucose 158 H (74-106) mg/dL Calcium 7.6 L (8.4-10.2) mg/dL Magnesium 2.0 (1.6-2.3) mg/dL Total Bilirubin 0.30 (0.2-1.3) mg/dL AST 17 (14-36) U/L ALT 14 (0-35) U/L Alkaline Phosphatase 46 (38-126) U/L Troponin I (0.000-0.034) ng/mL Serum Total Protein 6.1 L (6.3-8.2) g/dL Albumin 3.3 L (3.5-5.0) g/dL Radiology Exams: Radiology Procedures Category Date Time Status HEAD WITHOUT CONTRAST [CT] Stat Exams 07/26/22 00:38 Completed MRI BRAIN W/O CONTRAST [MRI] Routine Exams 07/26/22 08:53 Completed Multi-Disciplinary Progress Notes: Multi-Disciplinary Progress Notes 07/26/22 14:36 Respiratory Note by Hazel Pizano EEG RESULTS FAXED TO DR. MOROE'S OFFICE. RESULTS ALSO GIVEN TO PT'S NURSE AND PLACED ON THE CHART. Initialized on 07/26/22 14:36 - END OF NOTE Assessment/Plan (1) Seizure Current Visit: Yes Status: Acute Assessment & Plan: Await teleneurology recommendations - doing consult now. EEG and MRI nl. Code(s): R56.9 - UNSPECIFIED CONVULSIONS (2) Hypokalemia Current Visit: Yes Status: Resolved Code(s): E87.6 - HYPOKALEMIA (3) UTI (urinary tract infection) Current Visit: Yes Status: Suspected Qualifiers: Urinary tract infection type: acute cystitis Hematuria presence: with hematuria Qualified Code(s): N30.01 - Acute cystitis with hematuria Assessment & Plan: Prelim culture is neg - await final result. Code(s): N39.0 - URINARY TRACT INFECTION, SITE NOT SPECIFIED (4) Tobacco abuse Current Visit: Yes Status: Chronic Assessment & Plan: smokes 1 PPD, starting 21 mg nicoderm daily. Code(s): Z72.0 - TOBACCO USE
[2022-07-27] MEDS: Cyclobenzaprine 10 MG PO SCH ×3 (09:29→21:45)
[2022-07-27] MEDS: HYDROCODONE-ACETAMIN 10-325 MG PO SCH ×3 (09:29→21:45)
[2022-07-27] MEDS: Cozaar 50 MG PO SCH (09:29)
[2022-07-27] MEDS: hydroDIURIL 25 MG PO SCH (09:30)
[2022-07-27] MEDS: Zocor 10MG PO SCH (09:31)
[2022-07-27] MEDS: Protonix 40MG Tablet PO SCH (09:31)
[2022-07-27] MEDS: Lexapro PO SCH (09:31)
[2022-07-27] MEDS: KEPPRA PO SCH ×2 (09:31→21:44)
[2022-07-27] MEDS: Nicoderm CQ 21 MG TOP SCH (09:31)
[2022-07-27] MEDS: Klor Con PO SCH (09:31)
[2022-07-27] MEDS ORDERED: NON-FORMULARY ITEM (Losartan/Hydrochlorothiazide [Losartan-Hctz 50-12.5 Mg Tab] 1 EACH Tab PO SCH (10:00)
[2022-07-27] MEDS ORDERED: NON-FORMULARY ITEM (Atorvastatin Calcium [Lipitor] 10 MG Tablet) PO SCH (10:00)
[2022-07-27] MEDS ORDERED: NON-FORMULARY ITEM (Omeprazole [Omeprazole] 20 MG Tablet.Dr) PO SCH (10:00)
[2022-07-27] MEDS: Ativan 2 MG/1 ML VIAL IV PRN ×2 (10:54→18:13)
[2022-07-27] MEDS: ROCEPHIN 1 Gm-D5w 50 ml Bag** 1 G/50 ML IVPB IV SCH (21:44)
[2022-07-27] MEDS: Toprol-Xl 25MG Tablets PO SCH (21:45)
[2022-07-28] MEDS: Sodium Chloride 0.9% 1000 ML 1,000 ML IV SCH (03:53)
[2022-07-28 07:44] VITALS: BP 152/73; PULSE 96; O2SAT 96
--- NOTE | 2022-07-28 08:12 | PCM.DS ---
Discharge Summary Date of Admission: 07/26/22 03:59 Admitting Physician: CARL MOORE Consults: Consults on Case 07/26/22 14:26 Consult Tele-Health [Tele-Health Consult] ROUTINE Primary Care Provider: MAIA BARRAZA MD Allergies Allergies latex [Latex] Allergy (Mild, Verified 07/13/22 18:41) olanzapine [From Zyprexa] Allergy (Mild, Verified 07/13/22 18:41) sumatriptan [From Imitrex] Allergy (Verified 07/13/22 18:41) sumatriptan succinate [From Imitrex] Allergy (Verified 07/13/22 18:41) Hospital Summary - Hospital Course Hospital Course: patient was admitted with Dr Rachel as a service patient with no local physician for UTI and seizure activity. patient had a normal eeg, of note reportedly there was seizure-like activity during this recording and it was read as normal. raises suspicion for pseudoseizures. patient has seen a neurologist in the past in [place] for "epilepsy" but sounds like she wasn't continued on meds retirement. in any event she is on keppra and recommended by teleneuro consult while inpatient to followup for a longer eeg. patient feels well at the time of discharge and I personally advised her no driving, no ladders or heights etc until released by outpatient neurology. she states a consult is pending from her PCP with sesser neurology but not scheduled to her knowledge - Vitals & Intake/Output Vital Signs: Vital Signs Temperature 97.8 F 07/28/22 07:44 Pulse Rate 96 H 07/28/22 07:44 Respiratory Rate 17 07/28/22 07:44 Blood Pressure 152/73 07/28/22 07:44 O2 Sat by Pulse Oximetry 96 07/28/22 07:44 Intake & Output: Intake & Output 07/25/22 07/26/22 07/27/22 07/28/22 11:59 11:59 11:59 11:59 Intake Total 240 4152 1689 Output Total 400 3100 3200 Balance -160 1052 -1511 Weight 86.3 kg - Lab Result Diagrams: 07/27/22 04:40 07/27/22 04:40 Micro Results-Entire Visit: Microbiology 07/26/22 01:46 Urine Culture - Final Urine, Void MIXED SUMMER; 3 OR MORE TYPES. NO PREDOMINANT ORGANISM. NO FURTHER WORKUP. PLEASE RESUBMIT IF CLINICALLY INDICATED. 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 as tested, No motor deficits, No sensory deficit Respiratory Exam: normal breath sounds, lungs clear, No respiratory distress Cardiovascular Exam: regular rate/rhythm, normal heart sounds Gastrointestinal/Abdomen Exam: soft, No tenderness, No mass Extremity Exam: normal inspection, normal range of motion Skin Exam: normal color, warm, dry Final Diagnosis/Problem List - Final Discharge Diagnosis/Problem (1) Seizure Current Visit: Yes Status: Acute Assessment & Plan: suspicion for psychogenic seizures, will continue keppra and seizure precautions and followup as outpatient with neuro Code(s): R56.9 - UNSPECIFIED CONVULSIONS (2) UTI (urinary tract infection) Current Visit: Yes Status: Suspected Assessment & Plan: culture was negative, mixed summer. no further tx required on discharge Code(s): N39.0 - URINARY TRACT INFECTION, SITE NOT SPECIFIED (3) Migraine headache Current Visit: No Status: Acute Code(s): G43.909 - MIGRAINE, UNSP, NOT INTRACTABLE, WITHOUT STATUS MIGRAINOSUS - Discharge Disposition: Home, Self-Care Condition: Stable Prescriptions: New Levetiracetam [Keppra] 1,000 mg PO BID #60 tablet Continue Omeprazole 40 mg PO DAILY Atorvastatin Calcium [Lipitor] 10 mg PO DAILY Metoprolol Succinate 25 mg Xl* [Toprol-Xl 25MG Tablets] 25 mg PO HS Cyclobenzaprine HCl 10 mg [Cyclobenzaprine 10 MG] 10 mg PO TID Losartan/Hydrochlorothiazide [Losartan-Hctz 50-12.5 mg Tab] 1 each PO DAILY Hydrocodone/Acetaminophen [Hydrocodone-Acetamin 10-325 mg] 1 tablet PO TID Escitalopram Oxalate 10 mg PO DAILY Potassium Chloride Tab* [Klor Con] 1 tab PO DAILY Discontinued Levetiracetam [Keppra] 500 mg PO BID Additional Instructions: please schedule with [facility] any provider first available hospital followup for seizure like activity and forward records. do not drive, do not climb ladders or be at any heights until released by neurology. Follow up with: MAIA BARRAZA MD [Primary Care Provider] -
[2022-07-28] MEDS: Nicoderm CQ 21 MG TOP SCH (08:23)
[2022-07-28] MEDS: HYDROCODONE-ACETAMIN 10-325 MG PO SCH (08:25)
== END 2022-07-28 10:00 | disposition home or self-care (01) ==
LOC: ED 00:22 → MED SURG 03:59
PROVIDERS: ADMIT Family Medicine; ATTEND Family Medicine
DX: R56.9 Unspecified convulsions (principal); N39.0 Urinary tract infection, site not specified; G43.909 Migraine, unspecified, not intractable, without status migrainosus; E87.6 Hypokalemia; I10 Essential (primary) hypertension; R42 Dizziness and giddiness; Z79.899 Other long term (current) drug therapy; Z20.828 Contact with and (suspected) exposure to other viral communicable diseases; Z72.0 Tobacco use
CPT/HCPCS: 0241U; 36415; 70450; 70551; 80053; 80177; 81015; 83735; 84132; 84484; 85025; 87086; 93005; 93041; 93268; 94760; 95812; 96365; 96367; 99284; G0008; G0378; 90686; J0696; J2060; J3475; J3480; Q3014; A9270-GY

== ENCOUNTER 2022-07-29 22:58 | Emergency (ER) | payer BC ==
[2022-07-29] MEDS ORDERED: Sodium Chloride 0.9% 1000 ML 1,000 ML IV STA (23:00)
[2022-07-29] MEDS ORDERED: Ativan 2 MG/1 ML VIAL IV ONE (23:00)
[2022-07-29] MEDS ORDERED: Ativan 2 MG/1 ML VIAL ONE (23:04)
[2022-07-29 23:15] LABS: Absolute Neutrophil Ct (ANC) 5.19 x10^3/uL (1.4-6.9); Basophil (Absolute #) 0.07 x10^3/uL (0-0.4); Eosinophil % 2.9 % (0.00-5.0); Eosinophil (Absolute #) 0.32 x10^3/uL (0-0.5); Hematocrit 46.2 % (35-47); Hemoglobin 14.5 g/dL (12.0-16.0); Lymphocyte (Absolute #) 4.58 x10^3/uL (1.0-4.6); Lymphocytes % 42.2 % (24.0-44.0); Mean Cell Volume 94.1 fL (78-100); Mean Corpuscular Hemoglobin 29.5 pg (26-32); Mean Corpuscular Hgb Concent. 31.4 g/dL (32-36); Mean Platelet Volume 9.5 fL (7.5-11.0); Monocyte (Absolute #) 0.62 x10^3/uL (0.0-1.3); Monocytes % 5.7 % (0.0-12.0); Platelet Count 389 x10^3/uL (150-450); Red Blood Count 4.91 x10^6/uL (4.1-5.4); Red Cell Distribution Width 12.9 % (11.5-14.0); White Blood Count 10.9 x10^3/uL (4.0-10.5)
[2022-07-29] MEDS ORDERED: Sodium Chloride 0.9% 1000 ML 1,000 ML ONE (23:20)
[2022-07-29 23:34] LABS: ALBUMIN 4.6 g/dL (3.5-5.0); ANION GAP 11.8 MEQ/L (5-15); BILIRUBIN,TOTAL 0.3 mg/dL (0.2-1.3); Calcium 9.1 mg/dL (8.4-10.2); Creatinine 1 1.14 mg/dL (0.52-1.04); EST GLOMERULAR FILTRATION RATE 53.4 ML/MIN; Potassium 3.5 mmol/L (3.5-5.1); Total Protein 8.1 g/dL (6.3-8.2)
--- NOTE | 2022-07-29 23:51 | ERPHSYRPT ---
- History of Present Illness Time Seen by Provider: 07/29/22 23:10 Patient Subjective Stated Complaint: per ems " pt was having seizure like activity tonight. Pt has about 20 15 second seizure like activity episodes." Triage Nursing Assessment: Pt presented to ED thru Medic 1, pt alert to voice, p t having seizure like activity tonight, pt take keppra for seizures, pt just recently had MRI 3 days ago, pt having seizure like activity during triage but able to answer questions during and after seizure activity, pt rating 10/10 pain in her back d/t having chronic back pain, pt has taken 2 norcos today for said back pain Physician History: Patient is a 52-year-old white female who presents by EMS with a history of multiple up to 30 seizures today. She is able to stop shaking upon request when IVs are started and she sometimes will answer questions while having a seizure. Review of the records indicates the possibility of pseudoseizures she is supposedly on Keppra at this time she has been hospitalized recently and has had an MRI and a CT scan recently within the last month or 2. Both studies were compatible with age. Timing/Duration: today, intermittent Severity: moderate Character of Deficits: none Current Cognition: alert but confused Associated Symptoms: seizures Allergies/Adverse Reactions: latex [Latex] Allergy (Mild, Verified 07/29/22 22:59) olanzapine [From Zyprexa] Allergy (Mild, Verified 07/29/22 22:59) sumatriptan [From Imitrex] Allergy (Verified 07/29/22 22:59) sumatriptan succinate [From Imitrex] Allergy (Verified 07/29/22 22:59) Home Medications: Atorvastatin Calcium [Lipitor] 10 mg PO DAILY 04/02/21 [History] Cyclobenzaprine HCl 10 mg [Cyclobenzaprine 10 MG] 10 mg PO TID 04/02/21 [History] Losartan/Hydrochlorothiazide [Losartan-Hctz 50-12.5 mg Tab] 1 each PO DAILY 04/02/21 [History] Metoprolol Succinate 25 mg Xl* [Toprol-Xl 25MG Tablets] 25 mg PO HS 04/02/21 [History] Omeprazole 40 mg PO DAILY 04/02/21 [History] Escitalopram Oxalate 10 mg PO DAILY 07/26/22 [History] Hydrocodone/Acetaminophen [Hydrocodone-Acetamin 10-325 mg] 1 tablet PO TID 07/26/22 [History] Potassium Chloride Tab* [Klor Con] 1 tab PO DAILY 07/26/22 [History] Hx Tetanus, Diphtheria Vaccination/Date Given: No Hx Influenza Vaccination/Date Given: Yes Hx Pneumococcal Vaccination/Date Given: No Immunizations Up to Date: No Travel Risk - International Travel Have you traveled outside of the country in past 3 weeks: No - Coronavirus Screening Are you exhibiting any of the following symptoms?: No Close contact with a COVID-19 positive Pt in past 14-21 Days: No - Vaccine Status Have you recieved a Covid-19 vaccination: Yes [employer]: Moderna - Vaccination Dates Date of 2cond Vaccination (if applicable): unknown - Review of Systems Constitutional: No Fever, No Chills Eyes: No Symptoms Ears, Nose, & Throat: No Symptoms Respiratory: No Cough, No Dyspnea Cardiac: No Chest Pain, No Edema, No Syncope Abdominal/Gastrointestinal: No Abdominal Pain, No Nausea, No Vomiting, No Diarrhea Genitourinary Symptoms: No Dysuria Musculoskeletal: No Back Pain, No Neck Pain Skin: No Rash Neurological: No Dizziness, No Focal Weakness, No Sensory Changes Psychological: No Symptoms Endocrine: No Symptoms All Other Systems: Reviewed and Negative - Past Medical History Pertinent Past Medical History: Yes Neurological History: Migraines, Seizures ENT History: No Pertinent History Cardiac History: Hypertension Respiratory History: No Pertinent History Endocrine Medical History: No Pertinent History Musculoskeletal History: Osteoarthritis GI Medical History: GERD History: No Pertinent History Psycho-Social History: No Pertinent History Female Reproductive Disorders: No Pertinent History Other Medical History: PTSD, chronic back pain, restless legs syndrome - Past Surgical History Past Surgical History: Yes Neuro Surgical History: No Pertinent History Cardiac: No Pertinent History Respiratory: No Pertinent History Gastrointestinal: No Pertinent History Genitourinary: No Pertinent History Musculoskeletal: No Pertinent History Female Surgical History: Tubal Ligation Other Surgical History: back surgery - Social History Smoking Status: Current every day smoker How long have you smoked: years Exposure to second hand smoke: Yes Drug Use: none Patient Lives Alone: No Significant Family History: no pertinent family hx - Nursing Vital Signs Nursing Vital Signs: Initial Vital Signs Temperature 97.6 F 07/29/22 22:59 Pulse Rate 110 H 07/29/22 22:59 Respiratory Rate 16 07/29/22 22:59 Blood Pressure 149/81 07/29/22 22:59 O2 Sat by Pulse Oximetry 97 07/29/22 22:59 Pain Scale Pain Intensity 10 - [place] Coma Scale Best Eye Response ([place]): (3) open to voice Best Verbal Response ([place]): (4) confused conversation Best Motor Response ([place]): (6) obeys commands [place] Total: 13 - Physical Exam General Appearance: lethargy (Possibly postictal) Eye Exam: bilateral eye: normal inspection, PERRL, EOMI Ears, Nose, Throat Exam: normal ENT inspection, moist mucous membranes Neck Exam: normal inspection, non-tender, supple Respiratory: normal breath sounds, lungs clear, airway intact, No respiratory distress Cardiovascular: regular rate/rhythm, No edema Gastrointestinal: soft, No tenderness, No distention Back Exam: normal inspection Extremity Exam: normal inspection, No pedal edema Peripheral Pulses: carotid (R): 2+, carotid (L): 2+ Mental Status: other (Seems to be postictal.) 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: 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 midline, No facial asymmetry, No facial droop Motor/Sensory: no motor deficit Skin Exam: normal color, warm, dry SpO2 Interpretation: normal SpO2: 97 O2 Delivery: Room Air - Course Nursing assessment & vital signs reviewed: Yes EKG Interpreted by Me: RATE (97), Sinus Rhythm, NORMAL AXIS, NORMAL INTERVALS, NORMAL QRS, Non-specific ST Changes Ordered Tests: Active Orders 24 hr Category Date Time Status EKG-ER Only STAT Care 07/29/22 23:00 Active CBC W DIFF Stat Lab 07/29/22 23:12 Completed CMP Stat Lab 07/29/22 23:12 Completed Lactic Acid Stat Lab 07/29/22 23:55 Completed UA W/RFX CULTURE Stat Lab 07/29/22 23:44 Completed Urine Triage Profile Stat Lab 07/29/22 23:44 Completed Medication Summary Discontinued Medications Generic Name Dose Route Start Last Admin Trade Name Freq PRN Reason Stop Dose Admin Sodium Chloride 1,000 mls @ 999 mls/hr 07/29/22 23:00 07/30/22 00:39 Sodium Chloride 0.9% 1000 Ml IV 07/30/22 00:00 Infused .Q1H1M STA Infusion Sodium Chloride Confirm 07/29/22 23:20 Sodium Chloride 0.9% 1000 Ml Administered 07/29/22 23:21 Dose 1,000 mls @ ud .ROUTE .STK-MED ONE Lorazepam 1 mg 07/29/22 23:00 07/29/22 23:08 Lorazepam 2 Mg/1 Ml 2 Mg Vial IV 07/29/22 23:01 1 mg STAT ONE Administration Lorazepam Confirm 07/29/22 23:04 Lorazepam 2 Mg/1 Ml 2 Mg Vial Administered 07/29/22 23:05 Dose 2 mg .ROUTE .STK-MED ONE Lab/Rad Data: Laboratory Result Diagrams 07/29/22 23:12 07/29/22 23:12 Laboratory Results 07/29/22 07/29/22 07/29/22 Range/Units 23:55 23:44 23:44 WBC (4.0-10.5) x10^3/uL RBC (4.1-5.4) x10^6/uL Hgb (12.0-16.0) g/dL Hct (35-47) % MCV (78-100) fL MCH (26-32) pg MCHC (32-36) g/dL RDW (11.5-14.0) % Plt Count (150-450) x10^3/uL MPV (7.5-11.0) fL Gran % (36.0-66.0) % Immature Gran % (Auto) (0.00-0.4) % Nucleat RBC Rel Count (0.00-0.1) % Eos # (Auto) (0-0.5) x10^3/uL Immature Gran # (Auto) (0.00-0.03) x10^3u/L Absolute Lymphs (auto) (1.0-4.6) x10^3/uL Absolute Monos (auto) (0.0-1.3) x10^3/uL Absolute Nucleated RBC (0.00-0.01) x10^3u/L Lymphocytes % (24.0-44.0) % Monocytes % (0.0-12.0) % Eosinophils % (0.00-5.0) % Basophils % (0.0-0.4) % Absolute Granulocytes (1.4-6.9) x10^3/uL Basophils # (0-0.4) x10^3/uL Sodium (137-145) mmol/L Potassium (3.5-5.1) mmol/L Chloride (98-107) mmol/L Carbon Dioxide (22-30) mmol/L Anion Gap (5-15) MEQ/L BUN (7-17) mg/dL Creatinine (0.52-1.04) mg/dL Estimated GFR ML/MIN Glucose (74-106) mg/dL Lactic Acid 2.9 H (0.4-2.0) Calcium (8.4-10.2) mg/dL Total Bilirubin (0.2-1.3) mg/dL AST (14-36) U/L ALT (0-35) U/L Alkaline Phosphatase (38-126) U/L Serum Total Protein (6.3-8.2) g/dL Albumin (3.5-5.0) g/dL Urinalys Dipstick Clnc MAIN LAB Urine Color LT.YELLOW (YELLOW) Urine Appearance SLIGHTLY CLOUDY A (CLEAR) Urine pH 5.5 (5-6) Ur Specific [place] 1.020 (1.005-1.025) POC Urine Protein Conf NEGATIVE (Negative) Urine Ketones NEGATIVE (NEGATIVE) Urine Nitrite NEGATIVE (NEGATIVE) Urine Bilirubin NEGATIVE (NEGATIVE) Urine Urobilinogen 0.2 (0-1) mg/dL Urine Leukocytes NEGATIVE (NEGATIVE) Urine WBC (Auto) 3-5 A (0-5) /HPF Urine RBC (Auto) 6-10 A (0-2) /HPF U Epithel Cells (Auto) RARE (FEW) /HPF Urine Bacteria (Auto) RARE (NEGATIVE) /HPF Urine RBC MODERATE A (0-5) Armando/ul Amorphous Crystals FEW A (NEGATIVE) /HPF Ur Culture Indicated? NO Urine Glucose NEGATIVE (NEGATIVE) mg/dL Urine Opiates Level POSITIVE (NEGATIVE) Ur Methadone NEGATIVE (NEGATIVE) Urine Barbiturates NEGATIVE (NEGATIVE) Ur Phencyclidine (PCP) NEGATIVE (NEGATIVE) Urine Amphetamine NEGATIVE (NEGATIVE) U Benzodiazepine Level NEGATIVE (NEGATIVE) Urine Cocaine NEGATIVE (NEGATIVE) Urine Marijuana (THC) NEGATIVE (NEGATIVE) 07/29/22 07/29/22 Range/Units 23:12 23:12 WBC 10.9 H (4.0-10.5) x10^3/uL RBC 4.91 (4.1-5.4) x10^6/uL Hgb 14.5 (12.0-16.0) g/dL Hct 46.2 (35-47) % MCV 94.1 (78-100) fL MCH 29.5 (26-32) pg MCHC 31.4 L (32-36) g/dL RDW 12.9 (11.5-14.0) % Plt Count 389 (150-450) x10^3/uL MPV 9.5 (7.5-11.0) fL Gran % 48.0 (36.0-66.0) % Immature Gran % (Auto) 0.6 H (0.00-0.4) % Nucleat RBC Rel Count 0.0 (0.00-0.1) % Eos # (Auto) 0.32 (0-0.5) x10^3/uL Immature Gran # (Auto) 0.07 H (0.00-0.03) x10^3u/L Absolute Lymphs (auto) 4.58 (1.0-4.6) x10^3/uL Absolute Monos (auto) 0.62 (0.0-1.3) x10^3/uL Absolute Nucleated RBC 0.00 (0.00-0.01) x10^3u/L Lymphocytes % 42.2 (24.0-44.0) % Monocytes % 5.7 (0.0-12.0) % Eosinophils % 2.9 (0.00-5.0) % Basophils % 0.6 (0.0-0.4) % Absolute Granulocytes 5.19 (1.4-6.9) x10^3/uL Basophils # 0.07 (0-0.4) x10^3/uL Sodium 139 (137-145) mmol/L Potassium 3.5 (3.5-5.1) mmol/L Chloride 101 (98-107) mmol/L Carbon Dioxide 30 (22-30) mmol/L Anion Gap 11.8 (5-15) MEQ/L BUN 10 (7-17) mg/dL Creatinine 1.14 H (0.52-1.04) mg/dL Estimated GFR 53.4 ML/MIN Glucose 99 (74-106) mg/dL Lactic Acid (0.4-2.0) Calcium 9.1 (8.4-10.2) mg/dL Total Bilirubin 0.30 (0.2-1.3) mg/dL AST 27 (14-36) U/L ALT 19 (0-35) U/L Alkaline Phosphatase 71 (38-126) U/L Serum Total Protein 8.1 (6.3-8.2) g/dL Albumin 4.6 (3.5-5.0) g/dL Urinalys Dipstick Clnc Urine Color (YELLOW) Urine Appearance (CLEAR) Urine pH (5-6) Ur Specific [place] (1.005-1.025) POC Urine Protein Conf (Negative) Urine Ketones (NEGATIVE) Urine Nitrite (NEGATIVE) Urine Bilirubin (NEGATIVE) Urine Urobilinogen (0-1) mg/dL Urine Leukocytes (NEGATIVE) Urine WBC (Auto) (0-5) /HPF Urine RBC (Auto) (0-2) /HPF U Epithel Cells (Auto) (FEW) /HPF Urine Bacteria (Auto) (NEGATIVE) /HPF Urine RBC (0-5) Armando/ul Amorphous Crystals (NEGATIVE) /HPF Ur Culture Indicated? Urine Glucose (NEGATIVE) mg/dL Urine Opiates Level (NEGATIVE) Ur Methadone (NEGATIVE) Urine Barbiturates (NEGATIVE) Ur Phencyclidine (PCP) (NEGATIVE) Urine Amphetamine (NEGATIVE) U Benzodiazepine Level (NEGATIVE) Urine Cocaine (NEGATIVE) Urine Marijuana (THC) (NEGATIVE) - Progress Progress: improved Progress Note: 07/30/22 01:51 The family requested that Ms. Oquendo be transferred to [facility] or to one of the [facility] for referral to a neurologist. We explained to them that transfers at this time would be very difficult. We explained that beds are and demand and neurologist are generally not available on the weekends or in the evenings. We told them that we would contact [facility], we wound contact [facility] and we would contact [place] to see if they first had beds and second if they had neurology. All 3 of those hospitals did not have beds and did not have neurology on-call. At that point we discussed things further with the family since she seems to respond to Ativan to stop this seizure cluster we will prescribe 1 mg of Ativan every 8 hours until she can see her family doctor in 2 to 3 days. - Departure Departure Disposition: Home Clinical Impression: Seizure-like activity Condition: Stable Critical Care Time: No Referrals: MAIA BARRAZA MD [Primary Care Provider] - Follow up/PCP as directed Instructions: Seizures, Adult (DC) Prescriptions: Lorazepam 1 mg [Ativan 1 MG] 1 mg PO Q8H PRN PRN #8 tablet PRN Reason: Anxiety
[2022-07-29 23:56] LABS: Appearance SLIGHTLY CLOUDY (CLEAR); Bilirubin NEGATIVE (NEGATIVE); Dipstick done @ ? MAIN LAB; Glucose NEGATIVE (NEGATIVE); Ketones NEGATIVE (NEGATIVE); Nitrite NEGATIVE (NEGATIVE); Ph 5.5 (5-6); Protein,Urine Dip NEGATIVE (Negative); RBC MODERATE Ery/ul (0-5); Urobilinogen 0.2 mg/dL (0-1)
[2022-07-30 00:01] LABS: Amourphous Crystal FEW /HPF (NEGATIVE); Bacteria RARE /HPF (NEGATIVE); Epithelial Cells RARE /HPF (FEW); Urine Cultured Indicated? NO
[2022-07-30 00:10] LABS: Amphetamine,Urine NEGATIVE (NEGATIVE); Barbiturate,Urine NEGATIVE (NEGATIVE); Benzodiazepine,Urine NEGATIVE (NEGATIVE); Cocaine,Urine NEGATIVE (NEGATIVE); Methadone,Urine NEGATIVE (NEGATIVE); Opiate,Urine POSITIVE (NEGATIVE); PCP,Urine NEGATIVE (NEGATIVE); THC,Urine NEGATIVE (NEGATIVE)
[2022-07-30 01:12] VITALS: BP 112/76
[2022-07-30 01:57] VITALS: O2SAT 97
[2022-07-30] MEDS ORDERED: Ativan 1 MG PO ONE (01:59)
[2022-07-30] MEDS ORDERED: Ativan 1 MG ONE (02:01)
[2022-07-30 02:08] VITALS: PULSE 85
== END 2022-07-30 02:32 | disposition home or self-care (01) ==
LOC: ED 22:58
DX: R56.9 Unspecified convulsions (principal); I10 Essential (primary) hypertension; Z72.0 Tobacco use; Z79.891 Long term (current) use of opiate analgesic; Z79.899 Other long term (current) drug therapy
CPT/HCPCS: 36415; 80053; 80307; 81015; 83605; 84146; 85025; 93005; 96360; 96374; 99284; J2060; A9270-GY

== ENCOUNTER 2022-08-07 16:48 | Emergency (ER) | payer BC ==
[2022-08-07 18:01] LABS: Epithelial Cells RARE /HPF (FEW); RBC 0-2 /HPF (0-2); WBC 0-2 /HPF (0-5)
[2022-08-07 18:09] LABS: Appearance SLIGHTLY CLOUDY (CLEAR)
[2022-08-07 18:10] LABS: Bilirubin NEGATIVE (NEGATIVE); Dipstick done @ ? MAIN LAB; Glucose NEGATIVE (NEGATIVE); Ketones NEGATIVE (NEGATIVE); Nitrite NEGATIVE (NEGATIVE); Ph 6.5 (5-6); Protein,Urine Dip NEGATIVE (Negative); RBC TRACE-INTACT Ery/ul (0-5); Specific Gravity 1.025 (1.005-1.025); Urobilinogen 1 mg/dL (0-1)
[2022-08-07 18:15] LABS: Urine Cultured Indicated? NO
[2022-08-07] MEDS ORDERED: Keppra 500 MG/5 ML*** 1,000 MG in D5w 100ML Mini Bag 100 ML 100 ML IV ONE (18:16)
[2022-08-07] MEDS ORDERED: Sodium Chloride 0.9% 1000 ML 1,000 ML IV STA (18:16)
[2022-08-07] MEDS ORDERED: Reglan 10 MG/2 ML IV ONE (18:18)
[2022-08-07] MEDS ORDERED: BENADRYL 50 MG/ML IV ONE (18:18)
[2022-08-07 18:23] LABS: Absolute Neutrophil Ct (ANC) 3.99 x10^3/uL (1.4-6.9); Basophil (Absolute #) 0.04 x10^3/uL (0-0.4); Eosinophil % 3.6 % (0.00-5.0); Eosinophil (Absolute #) 0.26 x10^3/uL (0-0.5); Hematocrit 40.8 % (35-47); Hemoglobin 13.1 g/dL (12.0-16.0); Lymphocyte (Absolute #) 2.54 x10^3/uL (1.0-4.6); Lymphocytes % 35.1 % (24.0-44.0); Mean Cell Volume 93.4 fL (78-100); Mean Corpuscular Hgb Concent. 32.1 g/dL (32-36); Mean Platelet Volume 10.1 fL (7.5-11.0); Monocyte (Absolute #) 0.38 x10^3/uL (0.0-1.3); Monocytes % 5.3 % (0.0-12.0); Neutrophil % 55.1 % (36.0-66.0); Platelet Count 304 x10^3/uL (150-450); Red Blood Count 4.37 x10^6/uL (4.1-5.4); Red Cell Distribution Width 12.5 % (11.5-14.0); White Blood Count 7.2 x10^3/uL (4.0-10.5)
[2022-08-07 18:30] LABS: ALBUMIN 4.1 g/dL (3.5-5.0); ALKALINE PHOSPHATASE 56 U/L (38-126); ANION GAP 8.5 MEQ/L (5-15); BLOOD UREA NITROGEN 11 mg/dL (7-17); CHLORIDE 102 mmol/L (98-107); Calcium 8.8 mg/dL (8.4-10.2); Carbon Dioxide 30 mmol/L (22-30); Creatinine 1 1.03 mg/dL (0.52-1.04); EST GLOMERULAR FILTRATION RATE > 60.0 ML/MIN; Glucose 154 mg/dL (74-106); Potassium 3.5 mmol/L (3.5-5.1); SGOT/AST 21 U/L (14-36); SGPT/ALT 16 U/L (0-35); SODIUM 138 mmol/L (137-145)
--- NOTE | 2022-08-07 18:51 | ERPHSYRPT ---
- History of Present Illness Source: patient, EMS Exam Limitations: no limitations Patient Subjective Stated Complaint: Seizure Triage Nursing Assessment: Patient brought into ED by ambulance. Patient sedated and postictal at time of arrival to ED. Side rails padded to bed. No SOB noted. Patient arrived wearing oxygen at 15L per non-rebreather sating 100%; oxygen administration decreased to 2L per N/C and patient sats decreased to 96%. Timing/Duration: today, resolved prior to arrival, improved Severity: moderate Character of Deficits: none Deficits: no difficulties Baseline/Normal Cognition: alert oriented x 3 Current Cognition: alert oriented x 3 Baseline Gait: walks w/o assistance Associated Symptoms: seizures, headache, No nausea, No vomiting, No weakness, No ringing in ears, No trouble walking, No chest pain Hx Tetanus, Diphtheria Vaccination/Date Given: No Hx Influenza Vaccination/Date Given: Yes Hx Pneumococcal Vaccination/Date Given: No <JOSE KEANE - Last Filed: 08/07/22 18:58> <MICHAEL KELLY - Last Filed: 08/07/22 19:35> - History of Present Illness Time Seen by Provider: 08/07/22 16:53 Physician History: 52-year-old female with history of migraine, hypertension, hyperlipidemia, pseudoseizures presented to the ER with chief complaint of multiple seizures today. Patient has apparent worsening of seizure lately and has been seen ER 2 times and today again had multiple seizures. Patient has couple of seizures on EMS arrival and received Versed prior to arrival which improved. Patient is awake alert and oriented on presentation. Patient reports he is has having h eadache followed by seizure while she was sitting on a couch. Patient reports lately she has seizure every time she has a headache. Denies any focal numbness tingling or weakness. She has EMG study done lately but does not know the results. Denies any focal numbness, tingling, weakness, difficulty speech or visual disturbance. She is still complaining of 7/10 intensity headache all over. (JOSE KEANE) Allergies/Adverse Reactions: latex [Latex] Allergy (Mild, Verified 08/07/22 16:52) olanzapine [From Zyprexa] Allergy (Mild, Verified 08/07/22 16:52) sumatriptan [From Imitrex] Allergy (Verified 08/07/22 16:52) sumatriptan succinate [From Imitrex] Allergy (Verified 08/07/22 16:52) Home Medications: Atorvastatin Calcium [Lipitor] 10 mg PO DAILY 04/02/21 [History] Cyclobenzaprine HCl 10 mg [Cyclobenzaprine 10 MG] 10 mg PO TID 04/02/21 [History] Losartan/Hydrochlorothiazide [Losartan-Hctz 50-12.5 mg Tab] 1 each PO DAILY 04/02/21 [History] Metoprolol Succinate 25 mg Xl* [Toprol-Xl 25MG Tablets] 25 mg PO HS 04/02/21 [History] Omeprazole 40 mg PO DAILY 04/02/21 [History] Escitalopram Oxalate 10 mg PO DAILY 07/26/22 [History] Hydrocodone/Acetaminophen [Hydrocodone-Acetamin 10-325 mg] 1 tablet PO TID 1 [History] Potassium Chloride Tab* [Klor Con] 1 tab PO DAILY 07/26/22 [History] Travel Risk - International Travel Have you traveled outside of the country in past 3 weeks: No - Coronavirus Screening Are you exhibiting any of the following symptoms?: No Close contact with a COVID-19 positive Pt in past 14-21 Days: No - Vaccine Status Have you recieved a Covid-19 vaccination: Yes 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 - Vaccination Dates Date of 2cond Vaccination (if applicable): unknown <JOSE KEANE - Last Filed: 08/07/22 18:58> - Review of Systems Constitutional: No Symptoms Eyes: No Symptoms Ears, Nose, & Throat: No Symptoms Respiratory: No Symptoms Cardiac: No Symptoms Abdominal/Gastrointestinal: No Symptoms Genitourinary Symptoms: No Symptoms Musculoskeletal: Arthralgias Skin: No Symptoms Neurological: Headache, Seizure Psychological: Anxiety Endocrine: No Symptoms Hematologic/Lymphatic: No Symptoms Immunological/Allergic: No Symptoms <JOSE KEANE - Last Filed: 08/07/22 18:58> - Past Medical History Pertinent Past Medical History: Yes Neurological History: Migraines, Seizures ENT History: No Pertinent History Cardiac History: Hypertension Respiratory History: No Pertinent History Endocrine Medical History: No Pertinent History Musculoskeletal History: Osteoarthritis GI Medical History: GERD History: No Pertinent History Psycho-Social History: No Pertinent History Female Reproductive Disorders: No Pertinent History Other Medical History: PTSD, chronic back pain, restless legs syndrome - Past Surgical History Past Surgical History: Yes Neuro Surgical History: No Pertinent History Cardiac: No Pertinent History Respiratory: No Pertinent History Gastrointestinal: No Pertinent History Genitourinary: No Pertinent History Musculoskeletal: No Pertinent History Female Surgical History: Tubal Ligation Other Surgical History: back surgery - Social History Smoking Status: Current every day smoker How long have you smoked: years Exposure to second hand smoke: Yes Drug Use: none Patient Lives Alone: No Significant Family History: no pertinent family hx <JOSE KEANE - Last Filed: 08/07/22 18:58> - [place] Coma Scale Best Eye Response (Genna): (4) open spontaneously Best Verbal Response (Genna): (5) oriented Best Motor Response (Genna): (6) obeys commands [place] Total: 15 - Physical Exam General Appearance: no apparent distress, alert, anxiety Eye Exam: bilateral eye: normal inspection, PERRL, EOMI Ears, Nose, Throat Exam: normal ENT inspection, TMs normal, pharynx normal, moist mucous membranes Neck Exam: normal inspection, non-tender, supple, full range of motion Respiratory: normal breath sounds, lungs clear Cardiovascular: regular rate/rhythm, normal heart sounds Gastrointestinal: soft, normal bowel sounds, No tenderness Back Exam: normal inspection, normal range of motion Extremity Exam: normal inspection, normal range of motion, pelvis stable 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, oriented x 3, 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 Exam: normal hearing, normal speech, PERRL Coordination/Gait: normal finger to nose Motor/Sensory: no motor deficit, no sensory deficit, no pronator drift, negative Babinski's sign DTR: bicep (R): 2+, bicep (L): 2+, knee (R): 2+, knee (L): 2+ Skin Exam: normal color SpO2 Interpretation: normal SpO2: 99 O2 Delivery: Room Air <JOSE KEANE - Last Filed: 08/07/22 18:58> - Nursing Vital Signs Nursing Vital Signs: Initial Vital Signs Temperature 98 F 08/07/22 16:49 Pulse Rate 101 H 08/07/22 16:49 Respiratory Rate 15 08/07/22 16:49 Blood Pressure 127/80 08/07/22 16:49 O2 Sat by Pulse Oximetry 96 08/07/22 16:49 Pain Scale Pain Intensity 0 Ordered Tests: Active Orders 24 hr Category Date Time Status EKG-ER Only STAT Care 08/07/22 18:16 Active IV Insertion STAT Care 08/07/22 17:02 Active IV Insertion-2nd Peripheral STAT Care 08/07/22 17:02 Active cath [Cath for Specimen-Straight] STAT Care 08/07/22 17:02 Active HEAD WITHOUT CONTRAST [CT] Stat Exams 08/07/22 18:16 Taken CBC W DIFF Stat Lab 08/07/22 18:15 Completed CMP Stat Lab 08/07/22 18:15 Completed Lactic Acid Stat Lab 08/07/22 19:25 Completed UA W/RFX CULTURE Stat Lab 08/07/22 17:03 Completed Urine Triage Profile Stat Lab 08/07/22 18:15 Completed Medication Summary Discontinued Medications Generic Name Dose Route Start Last Admin Trade Name Freq PRN Reason Stop Dose Admin Diphenhydramine HCl 25 mg 08/07/22 18:18 Diphenhydramine Hcl 50 Mg/Ml Vial IV 08/07/22 18:19 STAT ONE Diphenhydramine HCl Confirm 08/07/22 19:28 Diphenhydramine Hcl 50 Mg/Ml Vial Administered 08/07/22 19:29 Dose 50 mg .ROUTE .STK-MED ONE Sodium Chloride 1,000 mls @ 999 mls/hr 08/07/22 18:16 Sodium Chloride 0.9% 1000 Ml IV 08/07/22 19:16 .Q1H1M STA Levetiracetam 1,000 mg/ 110 mls @ 400 mls/hr 08/07/22 18:16 Dextrose IV 08/07/22 18:32 STAT ONE Sodium Chloride Confirm 08/07/22 19:28 Sodium Chloride 0.9% 1000 Ml Administered 08/07/22 19:29 Dose 1,000 mls @ ud .ROUTE .STK-MED ONE Dextrose Confirm 08/07/22 19:29 D5w 100ml Mini Bag 100 Ml Administered 08/07/22 19:30 Dose 100 mls @ ud IV .STK-MED ONE Levetiracetam Confirm 08/07/22 19:28 Levetiracetam 500 Mg/5 Ml Vial Administered 08/07/22 19:29 Dose 500 mg .ROUTE .STK-MED ONE Metoclopramide HCl 10 mg 08/07/22 18:18 Metoclopramide Hcl 10 Mg/2 Ml Vial IV 08/07/22 18:19 STAT ONE Metoclopramide HCl Confirm 08/07/22 19:28 Metoclopramide Hcl 10 Mg/2 Ml Vial Administered 08/07/22 19:29 Dose 10 mg .ROUTE .STK-MED ONE Lab/Rad Data: Laboratory Result Diagrams 08/07/22 18:15 08/07/22 18:15 Laboratory Results 08/07/22 08/07/22 08/07/22 Range/Units 19:25 18:15 18:15 WBC 7.2 (4.0-10.5) x10^3/uL RBC 4.37 (4.1-5.4) x10^6/uL Hgb 13.1 (12.0-16.0) g/dL Hct 40.8 (35-47) % MCV 93.4 (78-100) fL MCH 30.0 (26-32) pg MCHC 32.1 (32-36) g/dL RDW 12.5 (11.5-14.0) % Plt Count 304 (150-450) x10^3/uL MPV 10.1 (7.5-11.0) fL Gran % 55.1 (36.0-66.0) % Immature Gran % (Auto) 0.3 (0.00-0.4) % Nucleat RBC Rel Count 0.0 (0.00-0.1) % Eos # (Auto) 0.26 (0-0.5) x10^3/uL Immature Gran # (Auto) 0.02 (0.00-0.03) x10^3u/L Absolute Lymphs (auto) 2.54 (1.0-4.6) x10^3/uL Absolute Monos (auto) 0.38 (0.0-1.3) x10^3/uL Absolute Nucleated RBC 0.00 (0.00-0.01) x10^3u/L Lymphocytes % 35.1 (24.0-44.0) % Monocytes % 5.3 (0.0-12.0) % Eosinophils % 3.6 (0.00-5.0) % Basophils % 0.6 (0.0-0.4) % Absolute Granulocytes 3.99 (1.4-6.9) x10^3/uL Basophils # 0.04 (0-0.4) x10^3/uL Sodium 138 (137-145) mmol/L Potassium 3.5 (3.5-5.1) mmol/L Chloride 102 (98-107) mmol/L Carbon Dioxide 30 (22-30) mmol/L Anion Gap 8.5 (5-15) MEQ/L BUN 11 (7-17) mg/dL Creatinine 1.03 (0.52-1.04) mg/dL Estimated GFR > 60.0 ML/MIN Glucose 154 H (74-106) mg/dL Lactic Acid 2.0 (0.4-2.0) Calcium 8.8 (8.4-10.2) mg/dL Total Bilirubin 0.40 (0.2-1.3) mg/dL AST 21 (14-36) U/L ALT 16 (0-35) U/L Alkaline Phosphatase 56 (38-126) U/L Serum Total Protein 7.0 (6.3-8.2) g/dL Albumin 4.1 (3.5-5.0) g/dL Urinalys Dipstick Clnc Urine Color (YELLOW) Urine Appearance (CLEAR) Urine pH (5-6) Ur Specific [place] (1.005-1.025) POC Urine Protein Conf (Negative) Urine Ketones (NEGATIVE) Urine Nitrite (NEGATIVE) Urine Bilirubin (NEGATIVE) Urine Urobilinogen (0-1) mg/dL Urine Leukocytes (NEGATIVE) Urine WBC (Auto) (0-5) /HPF Urine RBC (Auto) (0-2) /HPF U Epithel Cells (Auto) (FEW) /HPF Urine Bacteria (Auto) (NEGATIVE) /HPF Urine RBC (0-5) Armando/ul Ur Culture Indicated? Urine Glucose (NEGATIVE) mg/dL Urine Opiates Level (NEGATIVE) Ur Methadone (NEGATIVE) Urine Barbiturates (NEGATIVE) Ur Phencyclidine (PCP) (NEGATIVE) Urine Amphetamine (NEGATIVE) U Benzodiazepine Level (NEGATIVE) Urine Cocaine (NEGATIVE) Urine Marijuana (THC) (NEGATIVE) 08/07/22 08/07/22 Range/Units 18:15 17:03 WBC (4.0-10.5) x10^3/uL RBC (4.1-5.4) x10^6/uL Hgb (12.0-16.0) g/dL Hct (35-47) % MCV (78-100) fL MCH (26-32) pg MCHC (32-36) g/dL RDW (11.5-14.0) % Plt Count (150-450) x10^3/uL MPV (7.5-11.0) fL Gran % (36.0-66.0) % Immature Gran % (Auto) (0.00-0.4) % Nucleat RBC Rel Count (0.00-0.1) % Eos # (Auto) (0-0.5) x10^3/uL Immature Gran # (Auto) (0.00-0.03) x10^3u/L Absolute Lymphs (auto) (1.0-4.6) x10^3/uL Absolute Monos (auto) (0.0-1.3) x10^3/uL Absolute Nucleated RBC (0.00-0.01) x10^3u/L Lymphocytes % (24.0-44.0) % Monocytes % (0.0-12.0) % Eosinophils % (0.00-5.0) % Basophils % (0.0-0.4) % Absolute Granulocytes (1.4-6.9) x10^3/uL Basophils # (0-0.4) x10^3/uL Sodium (137-145) mmol/L Potassium (3.5-5.1) mmol/L Chloride (98-107) mmol/L Carbon Dioxide (22-30) mmol/L Anion Gap (5-15) MEQ/L BUN (7-17) mg/dL Creatinine (0.52-1.04) mg/dL Estimated GFR ML/MIN Glucose (74-106) mg/dL Lactic Acid (0.4-2.0) Calcium (8.4-10.2) mg/dL Total Bilirubin (0.2-1.3) mg/dL AST (14-36) U/L ALT (0-35) U/L Alkaline Phosphatase (38-126) U/L Serum Total Protein (6.3-8.2) g/dL Albumin (3.5-5.0) g/dL Urinalys Dipstick Clnc MAIN LAB Urine Color YELLOW (YELLOW) Urine Appearance SLIGHTLY CLOUDY A (CLEAR) Urine pH 6.5 (5-6) Ur Specific [place] 1.025 (1.005-1.025) POC Urine Protein Conf NEGATIVE (Negative) Urine Ketones NEGATIVE (NEGATIVE) Urine Nitrite NEGATIVE (NEGATIVE) Urine Bilirubin NEGATIVE (NEGATIVE) Urine Urobilinogen 1 A (0-1) mg/dL Urine Leukocytes NEGATIVE (NEGATIVE) Urine WBC (Auto) 0-2 (0-5) /HPF Urine RBC (Auto) 0-2 (0-2) /HPF U Epithel Cells (Auto) RARE (FEW) /HPF Urine Bacteria (Auto) NONE (NEGATIVE) /HPF Urine RBC TRACE-INTACT A (0-5) Armando/ul Ur Culture Indicated? NO Urine Glucose NEGATIVE (NEGATIVE) mg/dL Urine Opiates Level POSITIVE (NEGATIVE) Ur Methadone NEGATIVE (NEGATIVE) Urine Barbiturates NEGATIVE (NEGATIVE) Ur Phencyclidine (PCP) NEGATIVE (NEGATIVE) Urine Amphetamine NEGATIVE (NEGATIVE) U Benzodiazepine Level POSITIVE (NEGATIVE) Urine Cocaine NEGATIVE (NEGATIVE) Urine Marijuana (THC) NEGATIVE (NEGATIVE) - Progress Progress: improved <JOSE KEANE - Last Filed: 08/07/22 18:58> - Progress Counseled pt/family regarding: lab results, diagnosis, need for follow-up, rad results <MICHAEL KELLY - Last Filed: 08/07/22 19:35> - Progress Progress Note: 08/07/22 18:59 I have given her fluid bolus and migraine cocktail with Benadryl and Reglan. CT head is ordered along with other work-up. Care is transferred to Dr. Kelly at shift change for reevaluation and final disposition (JOSE KEANE) 08/07/22 19:33 CT scan of the head without contrast is normal. This study was compared to an MRI brain 07/26/2022, CT head 07/26/[address] scan of head 07/13/2022. There are no changes. (MICHAEL KELLY) <JOSE KEANE - Last Filed: 08/07/22 18:58> - Departure Departure Disposition: Home Critical Care Time: No <MICHAEL KELLY - Last Filed: 08/07/22 19:35> - Departure Clinical Impression: History of pseudoseizure Condition: Stable Referrals: MAIA BARRAZA MD [Primary Care Provider] - Follow up/PCP as directed Additional Instructions: Take all your medications as prescribed. Tomorrow morning, 08/08/2022, contact your prescribing provider/neurologist and make them aware of this recent evaluation emergency department and to provide you with an appointment for furt her evaluation management.
[2022-08-07 19:12] LABS: Amphetamine,Urine NEGATIVE (NEGATIVE); Barbiturate,Urine NEGATIVE (NEGATIVE); Benzodiazepine,Urine POSITIVE (NEGATIVE); Cocaine,Urine NEGATIVE (NEGATIVE); Methadone,Urine NEGATIVE (NEGATIVE); Opiate,Urine POSITIVE (NEGATIVE); PCP,Urine NEGATIVE (NEGATIVE); THC,Urine NEGATIVE (NEGATIVE)
[2022-08-07] MEDS ORDERED: Keppra 500 MG/5 ML ONE (19:28)
[2022-08-07] MEDS ORDERED: Reglan 10 MG/2 ML ONE (19:28)
[2022-08-07] MEDS ORDERED: Sodium Chloride 0.9% 1000 ML 1,000 ML ONE (19:28)
[2022-08-07] MEDS ORDERED: BENADRYL 50 MG/ML ONE (19:28)
[2022-08-07] MEDS ORDERED: D5w 100ML Mini Bag 100 ML 100 ML IV ONE (19:29)
[2022-08-07 21:01] VITALS: BP 124/72; PULSE 84; O2SAT 96
--- NOTE | 2022-08-08 08:33 | XRAY ---
Indication: Seizure activity. Headache. Multiple contiguous axial images obtained through the head without contrast. Comparison: July 26, 2022 Normal appearing brain parenchyma, ventricles, and bony calvarium for patient's age. Paranasal sinuses and mastoid air cells are clear. Impression: Continued normal CT head without contrast exam.
== END 2022-08-07 21:05 | disposition home or self-care (01) ==
LOC: ED 16:48
DX: R56.9 Unspecified convulsions (principal); R51.9 Headache, unspecified; E78.5 Hyperlipidemia, unspecified; I10 Essential (primary) hypertension; Z72.0 Tobacco use; Z79.891 Long term (current) use of opiate analgesic; Z79.899 Other long term (current) drug therapy
CPT/HCPCS: 36000; 36415; 70450; 80053; 80307; 81015; 83605; 85025; 96374; 96375; 99284; P9612; J1200; J1953

== ENCOUNTER 2023-05-23 10:24 | Emergency (ER) | payer BC ==
[2023-05-23 10:44] VITALS: TEMP 97.2
[2023-05-23] MEDS ORDERED: BABY ASPIRIN 81 MG CHEW PO ONE (10:52)
[2023-05-23] MEDS ORDERED: Nitrostat 0.4 MG (ED) SL ONE ×2 (10:52→11:02)
[2023-05-23 11:00] VITALS: O2SAT 97
[2023-05-23] MEDS ORDERED: BABY ASPIRIN 81 MG CHEW ONE (11:02)
--- NOTE | 2023-05-23 11:26 | ERPHSYRPT ---
- History of Present Illness Time Seen by Provider: 05/23/23 10:41 Source: patient Exam Limitations: no limitations Patient Subjective Stated Complaint: pt here for hypertension today. she also states she hurts all over and has tightness to her chest. she as recenly had so me med changes Triage Nursing Assessment: pt alert, resp easy, walked in, skin w/d/p. chest clear, no edema noted, moves all ext well Physician History: Patient is here for hypertension, chest tightness. Patient states developed last night into this morning. Patient was seen her mental health provider when they took her blood pressure. It was elevated. Therefore she was sent in here. She has no other falls or trauma. Patient is on several pain medications. No fever no chills, no known cardiac history. Allergies/Adverse Reactions: latex [Latex] Allergy (Mild, Verified 05/23/23 10:44) olanzapine [From Zyprexa] Allergy (Mild, Verified 05/23/23 10:44) sumatriptan [From Imitrex] Allergy (Verified 05/23/23 10:44) sumatriptan succinate [From Imitrex] Allergy (Verified 05/23/23 10:44) Home Medications: Atorvastatin Calcium [Lipitor] 10 mg PO DAILY 04/02/21 [History] Cyclobenzaprine HCl 10 mg [Cyclobenzaprine 10 MG] 10 mg PO TID 04/02/21 [History] Losartan/Hydrochlorothiazide [Losartan-Hctz 50-12.5 mg Tab] 1 each PO DAILY 04/02/21 [History] Metoprolol Succinate 25 mg Xl* [Toprol-Xl 25MG Tablets] 25 mg PO HS 04/02/21 [History] Omeprazole 40 mg PO DAILY 04/02/21 [History] Escitalopram Oxalate 10 mg PO DAILY 07/26/22 [History] Hydrocodone/Acetaminophen [Hydrocodone-Acetamin 10-325 mg] 1 tablet PO TID 07/26/22 [History] Potassium Chloride Tab* [Klor Con] 1 tab PO DAILY 07/26/22 [History] Aripiprazole [Abilify] 2 mg PO DAILY 05/23/23 [History] Buspirone HCl 5 mg [Buspar 5 mg] 10 mg PO TID 05/23/23 [History] Erenumab-Aooe [Aimovig Autoinjector] 140 mg UD 05/23/23 [History] Gabapentin [Neurontin ] 400 mg PO TID 05/23/23 [History] Tizanidine HCl [Zanaflex] 2 mg PO TID 05/23/23 [History] Ubrogepant [Ubrelvy] 50 mg PO DAILY 05/23/23 [History] lamoTRIgine [Lamictal Xr] 25 mg PO DAILY 05/23/23 [History] Hx Tetanus, Diphtheria Vaccination/Date Given: No Hx Influenza Vaccination/Date Given: Yes Hx Pneumococcal Vaccination/Date Given: No Immunizations Up to Date: Yes Travel Risk - International Travel Have you traveled outside of the country in past 3 weeks: No - Coronavirus Screening Are you exhibiting any of the following symptoms?: No Close contact with a COVID-19 positive Pt in past 14-21 Days: No - Vaccine Status Have you recieved a Covid-19 vaccination: Yes 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[employer] - Vaccination Dates Date of 2cond Vaccination (if applicable): unknown - Review of Systems Constitutional: No Fever, No Chills Eyes: No Symptoms Ears, Nose, & Throat: No Symptoms Respiratory: No Cough, No Dyspnea Cardiac: Chest Pain, Other (Hypertension), No Edema, No Syncope Abdominal/Gastrointestinal: No Abdominal Pain, No Nausea, No Vomiting, No Lianna rrhea Genitourinary Symptoms: No Dysuria Musculoskeletal: No Back Pain, No Neck Pain Skin: No Rash Neurological: No Dizziness, No Focal Weakness, No Sensory Changes Psychological: No Symptoms Endocrine: No Symptoms All Other Systems: Reviewed and Negative - Past Medical History Pertinent Past Medical History: Yes Neurological History: Migraines, Seizures ENT History: No Pertinent History Cardiac History: Hypertension Respiratory History: No Pertinent History Endocrine Medical History: No Pertinent History Musculoskeletal History: Osteoarthritis GI Medical History: GERD History: No Pertinent History Psycho-Social History: No Pertinent History Female Reproductive Disorders: No Pertinent History Other Medical History: PTSD, chronic back pain, restless legs syndrome - Past Surgical History Past Surgical History: Yes Neuro Surgical History: No Pertinent History Cardiac: No Pertinent History Respiratory: No Pertinent History Gastrointestinal: No Pertinent History Genitourinary: No Pertinent History Musculoskeletal: No Pertinent History Female Surgical History: Tubal Ligation Other Surgical History: back surgery - Social History Smoking Status: Current every day smoker How long have you smoked: years Exposure to second hand smoke: Yes Drug Use: none Patient Lives Alone: No Significant Family History: no pertinent family hx - Nursing Vital Signs Nursing Vital Signs: Initial Vital Signs Pulse Rate 79 05/23/23 10:38 Respiratory Rate 15 05/23/23 10:38 Blood Pressure 161/76 05/23/23 10:38 O2 Sat by Pulse Oximetry 97 05/23/23 10:38 Pain Scale Pain Intensity 4 - Physical Exam SpO2: 97 Comments: 05/23/23 11:28 Physical Exam Vitals signs and nursing note reviewed. Constitutional: Appearance: Patient is well-developed. HENT: Head: Normocephalic and atraumatic. Eyes: Conjunctiva/sclera: Conjunctivae normal. Neck: Trachea: No tracheal deviation. Cardiovascular: Rate and Rhythm: Normal rate. Pulmonary: Effort: Pulmonary effort is normal. No respiratory distress. Abdominal: Palpations: Abdomen is soft. Musculoskeletal: General: No deformity. Skin: General: Skin is warm and dry. Neurological: Mental Status: Patient is alert and oriented to person, place, and time, behavior normal. - Course Nursing assessment & vital signs reviewed: Yes EKG Interpreted by Me: Sinus Rhythm Ordered Tests: Active Orders 24 hr Category Date Time Status Vise Hand STAT Care 05/23/23 10:53 Active EKG-ER Only STAT Care 05/23/23 10:52 Active IV Insertion STAT Care 05/23/23 10:52 Active CHEST 2 VIEWS (PA AND LAT) Stat Exams 05/23/23 10:53 Completed CBC W DIFF Stat Lab 05/23/23 11:39 Completed CK-Creatinine Phosphokinase Stat Lab 05/23/23 11:39 Completed CMP Stat Lab 05/23/23 11:39 Completed D-DIMER QUANTITATIVE Stat Lab 05/23/23 11:39 Completed NT PRO BNPII Stat Lab 05/23/23 11:39 Completed TROPONIN Q4H Lab 05/23/23 11:39 Completed TROPONIN Q4H Lab 05/23/23 15:00 Ordered TROPONIN Q4H Lab 05/23/23 19:00 Ordered Medication Summary Discontinued Medications Generic Name Dose Route Start Last Admin Trade Name Freq PRN Reason Stop Dose Admin Aspirin 324 mg 05/23/23 10:52 05/23/23 11:03 Aspirin 81 Mg Tab.Chew PO 05/23/23 10:53 324 mg STAT ONE Administration Aspirin Confirm 05/23/23 11:02 Aspirin 81 Mg Tab.Chew Administered 05/23/23 11:03 Dose 324 mg .ROUTE .STK-MED ONE Nitroglycerin 0.4 mg 05/23/23 10:52 05/23/23 11:03 Nitroglycerin 0.4 Mg (Ed) 0.4 Mg Tab.Subl SL 05/23/23 10:53 0.4 mg STAT ONE Administration Nitroglycerin Confirm 05/23/23 11:02 Nitroglycerin 0.4 Mg (Ed) 0.4 Mg Tab.Subl Administered 05/23/23 11:03 Dose 0.4 mg SL .STK-MED ONE Lab/Rad Data: Laboratory Result Diagrams 05/23/23 11:39 05/23/23 11:39 Laboratory Results 05/23/23 05/23/23 05/23/23 Range/Units 11:39 11:39 11:39 WBC (4.0-10.5) x10^3/uL RBC (4.1-5.4) x10^6/uL Hgb (12.0-16.0) g/dL Hct (35-47) % MCV (78-100) fL MCH (26-32) pg MCHC (32-36) g/dL RDW (11.5-14.0) % Plt Count (150-450) x10^3/uL MPV (7.5-11.0) fL Gran % (36.0-66.0) % Immature Gran % (Auto) (0.00-0.4) % Nucleat RBC Rel Count (0.00-0.1) % Eos # (Auto) (0-0.5) x10^3/uL Immature Gran # (Auto) (0.00-0.03) x10^3u/L Absolute Lymphs (auto) (1.0-4.6) x10^3/uL Absolute Monos (auto) (0.0-1.3) x10^3/uL Absolute Nucleated RBC (0.00-0.01) x10^3u/L Lymphocytes % (24.0-44.0) % Monocytes % (0.0-12.0) % Eosinophils % (0.00-5.0) % Basophils % (0.0-0.4) % Absolute Granulocytes (1.4-6.9) x10^3/uL Basophils # (0-0.4) x10^3/uL D-Dimer < 0.19 (0.0-0.50) mg/L Sodium (137-145) mmol/L Potassium (3.5-5.1) mmol/L Chloride (98-107) mmol/L Carbon Dioxide (22-30) mmol/L Anion Gap (5-15) MEQ/L BUN (7-17) mg/dL Creatinine (0.52-1.04) mg/dL Estimated GFR ML/MIN Glucose (74-106) mg/dL Calcium (8.4-10.2) mg/dL Total Bilirubin (0.2-1.3) mg/dL AST (14-36) U/L ALT (0-35) U/L Alkaline Phosphatase (38-126) U/L Creatine Kinase (30-135) U/L Troponin I < 0.012 (0.000-0.034) ng/mL NT-Pro-B Natriuret Pep 267 (<300) pg/mL Serum Total Protein (6.3-8.2) g/dL Albumin (3.5-5.0) g/dL 05/23/23 05/23/23 Range/Units 11:39 11:39 WBC 9.5 (4.0-10.5) x10^3/uL RBC 4.51 (4.1-5.4) x10^6/uL Hgb 13.5 (12.0-16.0) g/dL Hct 41.2 (35-47) % MCV 91.4 (78-100) fL MCH 29.9 (26-32) pg MCHC 32.8 (32-36) g/dL RDW 12.8 (11.5-14.0) % Plt Count 291 (150-450) x10^3/uL MPV 9.8 (7.5-11.0) fL Gran % 82.2 H (36.0-66.0) % Immature Gran % (Auto) 0.4 (0.00-0.4) % Nucleat RBC Rel Count 0.0 (0.00-0.1) % Eos # (Auto) 0.02 (0-0.5) x10^3/uL Immature Gran # (Auto) 0.04 H (0.00-0.03) x10^3u/L Absolute Lymphs (auto) 1.50 (1.0-4.6) x10^3/uL Absolute Monos (auto) 0.11 (0.0-1.3) x10^3/uL Absolute Nucleated RBC 0.00 (0.00-0.01) x10^3u/L Lymphocytes % 15.7 L (24.0-44.0) % Monocytes % 1.2 (0.0-12.0) % Eosinophils % 0.2 (0.00-5.0) % Basophils % 0.3 (0.0-0.4) % Absolute Granulocytes 7.84 H (1.4-6.9) x10^3/uL Basophils # 0.03 (0-0.4) x10^3/uL D-Dimer (0.0-0.50) mg/L Sodium 142 (137-145) mmol/L Potassium 3.5 (3.5-5.1) mmol/L Chloride 104 (98-107) mmol/L Carbon Dioxide 26 (22-30) mmol/L Anion Gap 15.1 H (5-15) MEQ/L BUN 10 (7-17) mg/dL Creatinine 0.80 (0.52-1.04) mg/dL Estimated GFR > 60.0 ML/MIN Glucose 144 H (74-106) mg/dL Calcium 9.1 (8.4-10.2) mg/dL Total Bilirubin 0.40 (0.2-1.3) mg/dL AST 27 (14-36) U/L ALT 22 (0-35) U/L Alkaline Phosphatase 60 (38-126) U/L Creatine Kinase 140 H (30-135) U/L Troponin I (0.000-0.034) ng/mL NT-Pro-B Natriuret Pep (<300) pg/mL Serum Total Protein 7.2 (6.3-8.2) g/dL Albumin 4.5 (3.5-5.0) g/dL - Progress Progress: improved Progress Note: 05/23/23 11:28 Differential diagnosis includes: PNA, STEMI, NSTEMI, other infection, m usculoskeletal pain, pneumothorax - We'll obtain basic labs, fluids, EKG, troponin, chest x-ray - EKG shows no ST changes - my read - O2 saturations consistently greater than 95%. - CXR shows no pneumonia, pneumothorax - my read 05/23/23 13:01 Overall patient feeling improved. Negative troponin, D-dimer, chest x-ray. No obvious sinister causes for patient's chest pain today. Blood pressure improved here. Plan for discharge home, close follow-up with PCP. Patient may return here sooner for any new or changing symptoms. Medical Desision Making - External Record(s) Reviewed Records reviewed as a part of evaluation & management: Discharge Summary - Diagnostic Testing Diagnostic test were ordered, analyzed, and reviewed by me: Yes Radiological Interpretation: Interpreted by me - Departure Departure Disposition: Home Clinical Impression: Hypertension, Atypical chest pain Condition: Stable Critical Care Time: No Referrals: MAIA BARRAZA MD [NON-STAFF PHY W/O PRIVILEGES] - Follow up/PCP as directed Instructions: Chest Pain (DC)
[2023-05-23 11:48] LABS: Absolute Neutrophil Ct (ANC) 7.84 x10^3/uL (1.4-6.9); BASOPHIL % 0.3 % (0.0-0.4); Basophil (Absolute #) 0.03 x10^3/uL (0-0.4); Eosinophil % 0.2 % (0.00-5.0); Eosinophil (Absolute #) 0.02 x10^3/uL (0-0.5); Hematocrit 41.2 % (35-47); Hemoglobin 13.5 g/dL (12.0-16.0); IMMATURE GRAN # 0.04 x10^3u/L (0.00-0.03); IMMATURE GRAN % 0.4 % (0.00-0.4); Lymphocytes % 15.7 % (24.0-44.0); Mean Cell Volume 91.4 fL (78-100); Mean Corpuscular Hemoglobin 29.9 pg (26-32); Mean Corpuscular Hgb Concent. 32.8 g/dL (32-36); Mean Platelet Volume 9.8 fL (7.5-11.0); Monocyte (Absolute #) 0.11 x10^3/uL (0.0-1.3); Monocytes % 1.2 % (0.0-12.0); Neutrophil % 82.2 % (36.0-66.0); Platelet Count 291 x10^3/uL (150-450); Red Blood Count 4.51 x10^6/uL (4.1-5.4); Red Cell Distribution Width 12.8 % (11.5-14.0); White Blood Count 9.5 x10^3/uL (4.0-10.5)
--- NOTE | 2023-05-23 12:01 | XRAY ---
Indication: Chest pain. Comparison: March 22, 2017 PA/lateral chest again demonstrates normal heart and lungs with a few tiny calcified granulomas. Bony thorax intact. No new/acute findings.
[2023-05-23 12:08] LABS: ALBUMIN 4.5 g/dL (3.5-5.0); ALKALINE PHOSPHATASE 60 U/L (38-126); ANION GAP 15.1 MEQ/L (5-15); BLOOD UREA NITROGEN 10 mg/dL (7-17); CHLORIDE 104 mmol/L (98-107); CK-Creatinine Phosphokinase 140 U/L (30-135); Calcium 9.1 mg/dL (8.4-10.2); Carbon Dioxide 26 mmol/L (22-30); EST GLOMERULAR FILTRATION RATE > 60.0 ML/MIN; Glucose 144 mg/dL (74-106); Potassium 3.5 mmol/L (3.5-5.1); SGOT/AST 27 U/L (14-36); SGPT/ALT 22 U/L (0-35); SODIUM 142 mmol/L (137-145); Total Protein 7.2 g/dL (6.3-8.2)
[2023-05-23 13:00] VITALS: RESP 18
[2023-05-23 13:04] VITALS: BP 156/73; PULSE 68
== END 2023-05-23 13:04 | disposition home or self-care (01) ==
LOC: ED 10:24
DX: I10 Essential (primary) hypertension (principal); R07.89 Other chest pain; Z79.891 Long term (current) use of opiate analgesic; Z79.899 Other long term (current) drug therapy; Z72.0 Tobacco use
CPT/HCPCS: 36000; 36415; 71046; 80053; 82550; 83880; 84484; 85025; 85379; 93005; 93041; 99284; A9270-GY

== ENCOUNTER 2024-06-03 19:50 | Emergency (ER) | payer BC ==
[2024-06-03 20:33] VITALS: RESP 18; TEMP 97.8
[2024-06-03] MEDS ORDERED: TORAdol 30 mg Injection ONE (21:44)
[2024-06-03] MEDS: TORAdol 30 mg Injection IM ONE (21:49)
--- NOTE | 2024-06-03 22:36 | XRAY ---
CLINICAL HISTORY: fall, pain COMPARISON: None. TECHNIQUE: X-ray chest frontal 1 view. FINDINGS: Obtuse right cardiophrenic angle is likely due to fat pad. No pneumothorax, pleural effusion or consolidation. A benign looking soft tissue nodule in retrocardiac area. Heart size within normal limits. Costophrenic angles are clear. Visualized bones are intact. IMPRESSION: No significant abnormality. Electronically Signed by: Tamiko Riojas MD. (06/03/2024 22:32:47 EDT)
--- NOTE | 2024-06-03 22:39 | XRAY ---
CLINICAL HISTORY: fall, pain COMPARISON: None. TECHNIQUE: X-ray examination of the right shoulder is performed in 3 views: AP internal rotation, AP external rotation, and Y views. FINDINGS: No subluxation or dislocation. No obvious/definite acute bony abnormality. A tiny calcific focus is adjacent to the humeral head, calcific tendinopathy. Slightly reduced bone density. No significant soft tissue swelling. IMPRESSION: No subluxation or dislocation. No obvious/definite acute bony abnormality. DISCLAIMER:A subtle bone abnormality or fracture may not be readily apparent on x-rays, thus clinical correlation and further imaging including follow up CT, MRI, or follow up x-rays are advised as needed. Electronically Signed by: Tamiko Riojas MD. (06/03/2024 22:35:27 EDT)
--- NOTE | 2024-06-03 22:43 | XRAY ---
CLINICAL HISTORY: fall, pain COMPARISON: None. TECHNIQUE: X-ray images of the right knee were obtained in anteroposterior (AP), lateral, and oblique projections. FINDINGS: Bone Structure: Bone structure is normal and well-aligned. No evidence of acute fractures or dislocations. No osseous lesions or abnormalities identified. Joint Spaces: Mild tibial spiking is identified with slightly reduced tibiofemoral joint space. No significant narrowing of the medial or lateral compartments. Articular Surfaces: Articular surfaces are smooth and intact. No signs of osteophyte formation or subchondral sclerosis. Patella: Patella is normal in position and alignment. No evidence of patellar dislocation or subluxation. Focal calcification is identified along the patellar attachment of the quadriceps tendon which may be secondary to minimal calcific tendinopathy. Soft Tissues: Periarticular soft tissues appear normal and unremarkable. No soft tissue swelling, calcifications, or foreign bodies noted. Additional Findings: No signs of degenerative changes, such as osteoarthritis or inflammatory arthropathy. No evidence of joint effusion. IMPRESSION: No acute osseous abnormality was identified. Disclaimer: A subtle bone abnormality or fracture may not be readily apparent on X-rays, thus clinical correlation and further imaging including follow-up CT, MRI, or follow-up X-rays are advised as needed. Electronically Signed by: Tamiko Riojas MD. (06/03/2024 22:38:20 EDT)
--- NOTE | 2024-06-03 22:54 | XRAY ---
CLINICAL HISTORY: fall, pain COMPARISON: No previous studies are available for comparison. TECHNIQUE: X-ray images of the unilateral right ribs were obtained in PA/AP, and oblique projections. FINDINGS: Ribs: No evidence of acute rib fracture or dislocation. No abnormal rib lucencies or sclerotic lesions. Normal rib contour and alignment. Chest Wall: The soft tissues of the chest wall appear unremarkable. No evidence of subcutaneous emphysema or soft tissue masses. Lungs and Pleura: The lung hooks are clear with no evidence of pneumothorax or pleural effusion. No pulmonary infiltrates or masses identified. IMPRESSION: 1. Normal X-ray of the ribs. No evidence of acute rib fractures or other significant abnormalities. 2. Routine follow-up as clinically indicated. Correlation with clinical findings and further imaging if necessary.(Disclaimer: "A subtle bone abnormality or fracture may not be readily apparent on x-rays, thus clinical correlation and further imaging including follow-up CT, MRI, or follow-up x-rays are advised as needed"). Electronically Signed by: Tamiko Riojas MD. (06/03/2024 22:49:54 EDT)
--- NOTE | 2024-06-03 23:08 | ERPHSYRPT ---
- History of Present Illness Time Seen by Provider: 06/03/24 20:30 Source: patient Exam Limitations: no limitations Patient Subjective Stated Complaint: pt states she tripped over her dog and fell onto her rt side. has pain in her rt shoulder and clavicle area, rt upper arm, and rt ribs, rt knee Triage Nursing Assessment: pt alert and oriented, answers questions approp. pt ambulates back to room with steady gait noted. respirations nonlabored. skin warm and dry. pt holding her rt arm against her side. c/o pain in rt shoulder and clavicle area, rt upper arm, and rt ribs. abrasion and bruising to rt knee. Physician History: 54-year-old female presents to our ED for evaluation status post fall. Patient states she tripped over her dog at home. The fall was mechanical and not associated with any neuro cardiovascular symptomology. Patient fell onto her right side. Patient complains of pain to her anterior shoulder. Patient has tenderness to her right lateral ribs numbers 6 7 and 8. Pain to the anterior right knee. There is a superficial abrasion. Injury occurred just prior to arrival. Pain described as an ache that is localized. No radiation. Pain worse with movement and palpation. Pain improved with rest. No BHT or LOC. No neck pain. Cervical spine cleared clinically. Patient voices no other complaints or concerns at this time. Portions of this note were created with voice recognition technology. There may be grammatical, spelling, punctuation or sound alike errors Timing/Duration: today Severity: moderate Modifying Factors: Improves With: movement Associated Symptoms: denies symptoms Allergies/Adverse Reactions: latex [Latex] Allergy (Mild, Verified 06/03/24 20:33) olanzapine [From Zyprexa] Allergy (Mild, Verified 06/03/24 20:33) sumatriptan [From Imitrex] Allergy (Verified 06/03/24 20:33) sumatriptan succinate [From Imitrex] Allergy (Verified 06/03/24 20:33) Home Medications: Atorvastatin Calcium [Lipitor] 10 mg PO DAILY 04/02/21 [History] Cyclobenzaprine HCl 10 mg [Cyclobenzaprine 10 MG] 10 mg PO TID 04/02/21 [History] Losartan/Hydrochlorothiazide [Losartan-Hctz 50-12.5 mg Tab] 1 each PO DAILY 04/02/21 [History] Metoprolol Succinate 25 mg Xl* [Toprol-Xl 25MG Tablets] 25 mg PO HS 04/02/21 [History] Omeprazole 40 mg PO DAILY 04/02/21 [History] Escitalopram Oxalate 10 mg PO DAILY 07/26/22 [History] Hydrocodone/Acetaminophen [[place] 10-325 mg] 1 tablet PO TID 07/26/22 [History] Potassium Chloride Tab* [Klor Con] 1 tab PO DAILY 07/26/22 [History] Aripiprazole [Abilify] 2 mg PO DAILY 05/23/23 [History] Buspirone HCl 5 mg [Buspar 5 mg] 10 mg PO TID 05/23/23 [History] Erenumab-Aooe [Aimovig Autoinjector] 140 mg UD 05/23/23 [History] Gabapentin [Neurontin ] 400 mg PO TID 05/23/23 [History] Tizanidine HCl [Zanaflex] 2 mg PO TID 05/23/23 [History] Ubrogepant [Ubrelvy] 50 mg PO DAILY 05/23/23 [History] lamoTRIgine [Lamictal Xr] 25 mg PO DAILY 05/23/23 [History] Hx Tetanus, Diphtheria Vaccination/Date Given: Yes Hx Influenza Vaccination/Date Given: Yes Hx Pneumococcal Vaccination/Date Given: No Immunizations Up to Date: Yes Travel Risk - International Travel Have you traveled outside of the country in past 3 weeks: No - Emerging Infectious Disease Are you exhibiting symptoms associated with any current EIDs: No - Review of Systems Constitutional: No Symptoms, No Fever, No Chills Eyes: No Symptoms Ears, Nose, & Throat: No Symptoms Respiratory: No Symptoms, No Cough, No Dyspnea Cardiac: No Symptoms, No Chest Pain, No Edema, No Syncope Abdominal/Gastrointestinal: No Symptoms, No Abdominal Pain, No Nausea, No Vomiting, No Diarrhea Genitourinary Symptoms: No Symptoms, No Dysuria Musculoskeletal: No Symptoms, No Back Pain, No Neck Pain Skin: No Symptoms, No Rash Neurological: No Symptoms, No Dizziness, No Focal Weakness, No Sensory Changes Psychological: No Symptoms Endocrine: No Symptoms Hematologic/Lymphatic: No Symptoms Immunological/Allergic: No Symptoms All Other Systems: Reviewed and Negative - Past Medical History Pertinent Past Medical History: Yes Neurological History: Migraines, Seizures ENT History: No Pertinent History Cardiac History: Hypertension Respiratory History: No Pertinent History Endocrine Medical History: No Pertinent History Musculoskeletal History: Degenerative Disk Disease, Osteoarthritis GI Medical History: GERD History: No Pertinent History Psycho-Social History: No Pertinent History Female Reproductive Disorders: No Pertinent History Other Medical History: PTSD, chronic back pain, restless legs syndrome - Past Surgical History Past Surgical History: Yes Neuro Surgical History: No Pertinent History Cardiac: No Pertinent History Respiratory: No Pertinent History Gastrointestinal: No Pertinent History Genitourinary: No Pertinent History Musculoskeletal: No Pertinent History Female Surgical History: Tubal Ligation Other Surgical History: back surgery Significant Family History: no pertinent family hx - Female History Hx Last Menstrual Period: 11/17/2012 - Social History Smoking Status: Current every day smoker How long have you smoked: 23 yrs Exposure to second hand smoke: Yes Drug Use: none Patient Lives Alone: No - Social Determinants of Health Will the patient participate in the screening: Yes Do you worry about a steady place to live?: No Do you have any problems with any of the following?: No known problems In the past 12 months,have you had to go without utilities?: No Transportation Issues: No Has anyone in your support network made you feel unsafe?: No Have you or anyone in your house had to go without enough: No - Nursing Vital Signs Nursing Vital Signs: Initial Vital Signs Temperature 97.8 F 06/03/24 20:15 Pulse Rate 85 06/03/24 20:15 Respiratory Rate 18 06/03/24 20:15 Blood Pressure 110/71 06/03/24 20:15 O2 Sat by Pulse Oximetry 94 L 06/03/24 20:15 Pain Scale Pain Intensity 7 - Physical Exam General Appearance: no apparent distress, alert Eye Exam: PERRL/EOMI, eyes nml inspection Ears, Nose, Throat Exam: normal ENT inspection, TMs normal, pharynx normal, moist mucous membranes Neck Exam: normal inspection, non-tender, supple, full range of motion Respiratory Exam: normal breath sounds, lungs clear, airway intact, other (Tenderness to the right lateral ribs.), No respiratory distress Cardiovascular Exam: regular rate/rhythm, normal heart sounds, normal peripheral pulses Gastrointestinal/Abdomen Exam: soft, normal bowel sounds, other (No right upper quadrant pain or tenderness.), No tenderness, No mass Back Exam: normal inspection, normal range of motion, No CVA tenderness, No vertebral tenderness Extremity Exam: normal inspection, normal range of motion, pelvis stable, other (Tenderness to palpation of right anterior shoulder and right anterior knee. Superficial abrasion to right anterior knee.) Neurologic Exam: alert, oriented x 3, cooperative, normal mood/affect, nml cerebellar function, nml station & gait, sensation nml, No motor deficits Skin Exam: normal color, warm, dry, No rash Lymphatic Exam: No adenopathy SpO2 Interpretation: normal SpO2: 95 O2 Delivery: Room Air - Course Nursing assessment & vital signs reviewed: Yes - Radiology Exams Chest X-ray Interpretation: Teleradiologist Report (No acute findings) Ribs X-ray Interpretation: Teleradiologist Report (No acute finding) Shoulder X-ray Interpretation: Teleradiologist Report (No acute findings) Knee X-ray Interpretation: Teleradiologist Report (No acute finding) Ordered Tests: Active Orders 24 hr Category Date Time Status CHEST 1 VIEW (PORTABLE) Stat Exams 06/03/24 20:31 Completed KNEE (3 VIEWS) Stat Exams 06/03/24 20:31 Completed RIBS UNILATERAL Stat Exams 06/03/24 20:31 Completed SHOULDER Stat Exams 06/03/24 20:31 Completed Medication Summary Discontinued Medications Generic Name Dose Route Start Last Admin Trade Name Freq PRN Reason Stop Dose Admin Ketorolac Tromethamine 30 mg 06/03/24 20:32 06/03/24 21:49 Ketorolac Tromethamine 30 Mg/Ml Inj IM 06/03/24 20:33 30 mg STAT ONE Administration Ketorolac Tromethamine Confirm 06/03/24 21:44 Ketorolac Tromethamine 30 Mg/Ml Inj Administered 06/03/24 21:45 Dose 30 mg .ROUTE .[employer]MED ONE - Progress Progress: improved Progress Note: 54-year-old female presents to emergency department for evaluation of right shoulder right rib right knee pain status post mechanical fall. Physical exam reveals tenderness to these locations. There is a superficial abrasion to the right knee. The involved extremities are neurovascular intact distally compartments are soft cap refill less than 2 seconds. Patient received Toradol for pain control. X-rays negative for fracture dislocation. No acute findings. Patient referred to orthopedics regarding her right shoulder pain. Right upper extremity shoulder sling provided. Patient states she has got oxycodone at home and does not need anymore home medications. No indication for further workup will discharge home. Patient agrees to follow-up as discussed. at bedside. They voiced no other complaints or concerns at this time. Portions of this note were created with voice recognition technology. There may be grammatical, spelling, punctuation or sound alike errors Complexity of problem addressed is moderate acute complicated. No critical care time. Complex of data reviewed and analyzed is moderate. Test ordered test reviewed results analyzed and correlated clinically with history and physical exam. Risk of complication and or risk of morbidity/mortality of patient management is low. Vital stable. Time spent to discharge patient is approximately 15 minutes. Plan of care established for shared decision making. No social determinants of health present to impede follow-up. Portions of this note were created with voice recognition technology. There may be grammatical, spelling, punctuation or sound alike errors 06/03/24 23:16 06/03/24 23:21 Counseled pt/family regarding: diagnosis, need for follow-up, rad results - Departure Departure Disposition: Home Clinical Impression: Fall, Rib contusion, Shoulder strain, Knee contusion, Abrasion of knee, right Condition: Stable Critical Care Time: No Referrals: SINDY PATTON [facility] [Primary Care Provider] - Follow up/PCP as directed Additional Instructions: Discharge/Care Plan SUZETTE ESCALONA GLORIA was seen on 06/03/24 in the Emergency Room. The patient was counseled regarding Diagnosis,Lab results, Imaging studies, need for follow up and when to return to the Emergency Room. Prescriptions given: Discharge Note I have spoken with the patient and/or caregivers. I have explained the patient's condition, diagnosis and treatment plan based on the information available to me at this time. I have answered the patient's and/or caregiver's questions and addressed any concerns. The patient and/or caregivers have as good understanding of the patient's diagnosis, condition and treatment plan as can be expected at this point. The vital signs have been stable. The patient's condition is stable and appropriate for discharge from the emergency department. The patient will pursue further outpatient evaluation with the primary care ph ysician or other designated or consulting physician as outlined in the discharge instructions. The patient and/or caregivers are agreeable to this plan of care and follow-up instructions have been explained in detail. The patient and/or caregivers have received these instruction. The patient/and or caregivers are aware that any significant change in condition or worsening of symptoms should prompt an immediate return to this or the closest emergency department or call 911. Outpatient Orders: Ortho Referral Time Frame: 1 Day, Facility: [facility], Lo cation: [facility]
[2024-06-03 23:48] VITALS: BP 114/71; PULSE 78; O2SAT 94
== END 2024-06-03 23:59 | disposition home or self-care (01) ==
LOC: ED 19:50
DX: S46.911A Strain of unspecified muscle, fascia and tendon at shoulder and upper arm level, right arm, initial encounter (principal); S20.211A Contusion of right front wall of thorax, initial encounter; S80.01XA Contusion of right knee, initial encounter; S80.211A Abrasion, right knee, initial encounter; W01.0XXA Fall on same level from slipping, tripping and stumbling without subsequent striking against object, initial encounter; I10 Essential (primary) hypertension; Z79.899 Other long term (current) drug therapy; Z72.0 Tobacco use
CPT/HCPCS: 71045; 71100; 73030; 73562; 96372; 99283; J1885

== ENCOUNTER 2024-10-31 11:34 | Emergency (ER) | payer BC ==
--- NOTE | 2024-10-31 11:40 | ERPHSYRPT ---
- History of Present Illness Time Seen by Provider: 10/31/24 11:39 Source: patient, family Exam Limitations: no limitations Physician History: This is a right-handed 54-year-old white female patient who is tetanus status is up-to-date and she presents with a superficial flap laceration to her right index finger that she suffered when she was washing knives at home. The bleeding is controlled. Patient has a history of gastroesophageal reflux disease, hypertension, hyperlipidemia and anxiety. Her level of pain is a 3 out of 10 and it is mildly burning only. Patient has full function and full sensation of this right index finger. Timing/Duration: today Quality: burning Severity: mild Location: hands (Right index finger) Allergies/Adverse Reactions: latex [Latex] Allergy (Mild, Verified 10/31/24 11:40) olanzapine [From Zyprexa] Allergy (Mild, Verified 10/31/24 11:40) sumatriptan [From Imitrex] Allergy (Verified 10/31/24 11:40) sumatriptan succinate [From Imitrex] Allergy (Verified 10/31/24 11:40) Home Medications: Atorvastatin Calcium [Lipitor] 10 mg PO DAILY 04/02/21 [History] Cyclobenzaprine HCl 10 mg [Cyclobenzaprine 10 MG] 10 mg PO TID 04/02/21 [History] Losartan/Hydrochlorothiazide [Losartan-Hctz 50-12.5 mg Tab] 1 each PO DAILY 04/02/21 [History] Metoprolol Succinate 25 mg Xl* [Toprol-Xl 25MG Tablets] 25 mg PO HS 04/02/21 [History] Omeprazole 40 mg PO DAILY 04/02/21 [History] Escitalopram Oxalate 10 mg PO DAILY 07/26/22 [History] Hydrocodone/Acetaminophen [[place] 10-325 mg] 1 tablet PO TID 07/26/22 [History] Potassium Chloride Tab* [Klor Con] 1 tab PO DAILY 07/26/22 [History] Aripiprazole [Abilify] 2 mg PO DAILY 05/23/23 [History] Buspirone HCl 5 mg [Buspar 5 mg] 10 mg PO TID 05/23/23 [History] Erenumab-Aooe [Aimovig Autoinjector] 140 mg UD 05/23/23 [History] Gabapentin [Neurontin ] 400 mg PO TID 05/23/23 [History] Tizanidine HCl [Zanaflex] 2 mg PO TID 05/23/23 [History] Ubrogepant [Ubrelvy] 50 mg PO DAILY 05/23/23 [History] lamoTRIgine [Lamictal Xr] 25 mg PO DAILY 05/23/23 [History] Hx Tetanus, Diphtheria Vaccination/Date Given: Yes Hx Influenza Vaccination/Date Given: Yes Hx Pneumococcal Vaccination/Date Given: No Travel Risk - International Travel Have you traveled outside of the country in past 3 weeks: No - Emerging Infectious Disease Are you exhibiting symptoms associated with any current EIDs: No - Review of Systems Constitutional: No Symptoms Eyes: No Symptoms Ears, Nose, & Throat: No Symptoms Respiratory: No Symptoms Cardiac: No Symptoms Abdominal/Gastrointestinal: No Symptoms Genitourinary Symptoms: No Symptoms Musculoskeletal: No Symptoms Skin: Other (Skin laceration right index finger) Neurological: No Symptoms Psychological: No Symptoms Endocrine: No Symptoms Hematologic/Lymphatic: No Symptoms Immunological/Allergic: No Symptoms All Other Systems: Reviewed and Negative - Past Medical History Pertinent Past Medical History: Yes Neurological History: Migraines, Seizures ENT History: No Pertinent History Cardiac History: Hypertension Respiratory History: No Pertinent History Endocrine Medical History: No Pertinent History Musculoskeletal History: Degenerative Disk Disease, Osteoarthritis GI Medical History: GERD History: No Pertinent History Psycho-Social History: No Pertinent History Female Reproductive Disorders: No Pertinent History Other Medical History: PTSD, chronic back pain, restless legs syndrome - Past Surgical History Past Surgical History: Yes Neuro Surgical History: No Pertinent History Cardiac: No Pertinent History Respiratory: No Pertinent History Gastrointestinal: No Pertinent History Genitourinary: No Pertinent History Musculoskeletal: No Pertinent History Female Surgical History: Tubal Ligation Other Surgical History: back surgery Significant Family History: no pertinent family hx - Female History Hx Last Menstrual Period: 11/17/2012 - Social History Smoking Status: Current every day smoker How long have you smoked: 23 yrs Exposure to second hand smoke: Yes Drug Use: none Patient Lives Alone: No - Social Determinants of Health Will the patient participate in the screening: Yes Do you worry about a steady place to live?: No In the past 12 months,have you had to go without utilities?: No Transportation Issues: No Has anyone in your support network made you feel unsafe?: No Have you or anyone in your house had to go without enough: No - Nursing Vital Signs Nursing Vital Signs: Initial Vital Signs Temperature 97.8 F 10/31/24 11:46 Pulse Rate 83 10/31/24 11:46 Respiratory Rate 16 10/31/24 11:46 Blood Pressure 162/90 10/31/24 11:46 O2 Sat by Pulse Oximetry 95 10/31/24 11:46 Pain Scale Pain Intensity 3 - Physical Exam General Appearance: no apparent distress, alert, anxiety Eye Exam: PERRL/EOMI, eyes nml inspection Ears, Nose, Throat Exam: normal ENT inspection, moist mucous membranes Neck Exam: normal inspection, non-tender, supple, full range of motion Respiratory Exam: airway intact, No chest tenderness, No respiratory distress Gastrointestinal/Abdomen Exam: No tenderness Pelvic Exam: not done Rectal Exam: not done Back Exam: normal inspection, normal range of motion, No CVA tenderness, No vertebral tenderness Extremity Exam: normal range of motion, pelvis stable, lacerations (Curved 2 cm laceration dorsal aspect right index finger. No foreign body and no active bleeding), tenderness, No deformities Neurologic Exam: alert, oriented x 3, cooperative, loss prevention agent II-XII nml as tested, normal mood/affect, nml cerebellar function, nml station & gait, sensation nml Skin Exam: normal color, warm, dry, laceration (See above extremity section) Lymphatic Exam: No adenopathy SpO2 Interpretation: normal O2 Delivery: Room Air Procedures - Laceration/Wound Repair Right Dorsal Finger Time of Procedure: 11:50 Wound Location: Right, hand (Dorsal aspect right index finger) Wound Length (cm): 2 Wound's Depth, Shape: superficial, flap (Superficial) Wound Explored: clean (Wound explored to the base. It is clean. There is no foreign body noted. Exploration performed to the base in a bloodless field) Irrigated: Yes Hibiclens Prep: Yes Wound Repaired With: Steri-strips, Dermabond - Course Nursing assessment & vital signs reviewed: Yes - Progress Progress: improved Progress Note: 10/31/24 12:08 My medical decision making and the assignment of low complexity to this patient's medical issue today is based on review of the patient's past medical history, review of the patient's medication list, review of the patient's drug allergy list, history present illness and physical findings on examination. The workup in this patient does not require any laboratory radiographic studies. Counseled pt/family regarding: diagnosis Medical Desision Making - Independent Historian Additional History obtained from: Family - Diagnostic Testing Diagnostic test were ordered, analyzed, and reviewed by me: No - Risk of complications Minimal Risk: Minimal risk of morbidity - Departure Departure Disposition: Home Clinical Impression: Finger laceration Condition: Stable Critical Care Time: No Referrals: SINDY PATTON [employer] [Primary Care Provider] - Follow up/PCP as directed Additional Instructions: Keep the pressure bandage in place for 24 hours. After 24 hours may remove the pressure dressing and then rinse the Steri-Strip/laceration repair site with soapy water daily thereafter. Trim the Steri-Strips as they curl up.
[2024-10-31 11:47] VITALS: PULSE 83; RESP 16; TEMP 97.8; O2SAT 95
[2024-10-31 12:32] VITALS: BP 135/91
== END 2024-10-31 12:54 | disposition home or self-care (01) ==
LOC: ED 11:34
DX: S61.210A Laceration without foreign body of right index finger without damage to nail, initial encounter (principal); W26.0XXA Contact with knife, initial encounter; Y93.G1 Activity, food preparation and clean up; Y92.000 Kitchen of unspecified non-institutional (private) residence as the place of occurrence of the external cause; I10 Essential (primary) hypertension; E78.5 Hyperlipidemia, unspecified; Z79.899 Other long term (current) drug therapy; Z72.0 Tobacco use
CPT/HCPCS: 12001; 99283

== ENCOUNTER 2024-11-15 07:31 | Emergency (ER) | payer BC ==
[2024-11-15] MEDS ORDERED: Sodium Chloride 0.9% 1000 ML 1,000 ML ONE ×2 (07:45→09:25)
[2024-11-15 07:48] VITALS: TEMP 97.2
[2024-11-15] MEDS: Sodium Chloride 0.9% 1000 ML 1,000 ML IV STA ×2 (08:11→09:27)
[2024-11-15] MEDS ORDERED: TYLENOL EXTRA STRENGTH 500 MG ONE (08:17)
[2024-11-15] MEDS: TYLENOL EXTRA STRENGTH 500 MG PO STA (08:18)
--- NOTE | 2024-11-15 08:20 | ERPHSYRPT ---
- History of Present Illness Time Seen by Provider: 11/15/24 07:50 Source: patient, EMS Exam Limitations: clinical condition Patient Subjective Stated Complaint: PT HERE FOR A POSSIBLE SEIZURE TODAY AT HOME WHILE SITTING IN A CHAIR, SHE STATES SHE HAS NOT HAD A SEIZURE FOR A LONG TIME. SHE STATES HER CALLED 911. Triage Nursing Assessment: PT ALERT, WALKED IN, RESP EASY,CO HEADACHE, CHEST CLEAR, OCC COUGH, MOVES ALL EXT WELL, NO EDEMA NOTED Physician History: 54 years old female with history of seizures on Lamictal presented in the ER with 2-3 episodes of seizure-like activities prior to arrival with enuresis. Patient apparently was sitting on a chair and started to have stiffening followed by some shaking of lower extremities, happened 2-3 times, no seizure since EMS arrival. Patient is complaining of headache and some confusion and slowly getting out of postictal phase. Patient on reevaluation reports having similar episodes in the past but it was almost 6 months ago when she had a last seizure. No fall or trauma. She has been compliant with her medications. Complaining of moderate intensity dull headache all over with no focal neurodeficit. Patient reports her seizures are usually associated with her headache. No visual changes or difficulty speech. Allergies/Adverse Reactions: latex [Latex] Allergy (Mild, Verified 11/15/24 07:49) olanzapine [From Zyprexa] Allergy (Mild, Verified 11/15/24 07:49) sumatriptan [From Imitrex] Allergy (Verified 11/15/24 07:49) sumatriptan succinate [From Imitrex] Allergy (Verified 11/15/24 07:49) Home Medications: Atorvastatin Calcium [Lipitor] 10 mg PO DAILY 04/02/21 [History] Cyclobenzaprine HCl 10 mg [Cyclobenzaprine 10 MG] 10 mg PO TID 04/02/21 [History] Losartan/Hydrochlorothiazide [Losartan-Hctz 50-12.5 mg Tab] 1 each PO DAILY 04/02/21 [History] Metoprolol Succinate 25 mg Xl* [Toprol-Xl 25MG Tablets] 25 mg PO HS 04/02/21 [History] Omeprazole 40 mg PO DAILY 04/02/21 [History] Escitalopram Oxalate 10 mg PO DAILY 07/26/22 [History] Hydrocodone/Acetaminophen [[place] 10-325 mg] 1 tablet PO TID 07/26/22 [History] Potassium Chloride Tab* [Klor Con] 1 tab PO DAILY 07/26/22 [History] Aripiprazole [Abilify] 2 mg PO DAILY 05/23/23 [History] Buspirone HCl 5 mg [Buspar 5 mg] 10 mg PO TID 05/23/23 [History] Erenumab-Aooe [Aimovig Autoinjector] 140 mg UD 05/23/23 [History] Gabapentin [Neurontin ] 400 mg PO TID 05/23/23 [History] Tizanidine HCl [Zanaflex] 2 mg PO TID 05/23/23 [History] Ubrogepant [Ubrelvy] 50 mg PO DAILY 05/23/23 [History] lamoTRIgine [Lamictal Xr] 25 mg PO DAILY 05/23/23 [History] Hx Tetanus, Diphtheria Vaccination/Date Given: Yes Hx Influenza Vaccination/Date Given: Yes Hx Pneumococcal Vaccination/Date Given: No Immunizations Up to Date: Yes Travel Risk - International Travel Have you traveled outside of the country in past 3 weeks: No - Emerging Infectious Disease Are you exhibiting symptoms associated with any current EIDs: No - Review of Systems Constitutional: Fatigue Eyes: No Symptoms Ears, Nose, & Throat: No Symptoms Respiratory: No Symptoms Cardiac: No Symptoms Abdominal/Gastrointestinal: No Symptoms Genitourinary Symptoms: No Symptoms Musculoskeletal: Myalgias Skin: No Symptoms Neurological: Headache, Seizure Endocrine: No Symptoms Hematologic/Lymphatic: No Symptoms - Past Medical History Pertinent Past Medical History: Yes Neurological History: Migraines, Seizures ENT History: No Pertinent History Cardiac History: Hypertension Respiratory History: No Pertinent History Endocrine Medical History: No Pertinent History Musculoskeletal History: Degenerative Disk Disease, Osteoarthritis GI Medical History: GERD History: No Pertinent History Psycho-Social History: No Pertinent History Female Reproductive Disorders: No Pertinent History Other Medical History: PTSD, chronic back pain, restless legs syndrome - Past Surgical History Past Surgical History: Yes Neuro Surgical History: No Pertinent History Cardiac: No Pertinent History Respiratory: No Pertinent History Gastrointestinal: No Pertinent History Genitourinary: No Pertinent History Musculoskeletal: No Pertinent History Female Surgical History: Tubal Ligation Other Surgical History: back surgery Significant Family History: no pertinent family hx - Female History Hx Last Menstrual Period: NONE Hx Now: No - Social History Smoking Status: Current every day smoker How long have you smoked: 23 yrs Exposure to second hand smoke: Yes Drug Use: none - Social Determinants of Health Will the patient participate in the screening: Yes Do you worry about a steady place to live?: No Do you have any problems with any of the following?: No known problems In the past 12 months,have you had to go without utilities?: No Transportation Issues: No Has anyone in your support network made you feel unsafe?: No Have you or anyone in your house had to go w/o enough food: No - Nursing Vital Signs Nursing Vital Signs: Initial Vital Signs Temperature 97.2 F 11/15/24 07:47 Pulse Rate 80 11/15/24 07:47 Respiratory Rate 18 11/15/24 07:47 Blood Pressure 92/57 11/15/24 07:47 O2 Sat by Pulse Oximetry 92 L 11/15/24 07:47 Pain Scale Pain Intensity 2 - Young Harris Coma Scale Best Eye Response (Young Harris): (4) open spontaneously Best Verbal Response (Genna): (5) oriented Best Motor Response (Young Harris): (6) obeys commands Young Harris Total: 15 - Physical Exam General Appearance: no apparent distress, alert Eye Exam: bilateral eye: normal inspection, PERRL, EOMI Ears, Nose, Throat Exam: normal ENT inspection, TMs normal, pharynx normal, moist mucous membranes Neck Exam: normal inspection, non-tender, supple, full range of motion Respiratory: normal breath sounds, lungs clear Cardiovascular: regular rate/rhythm, normal heart sounds Gastrointestinal: soft, No tenderness Back Exam: normal inspection, normal range of motion Extremity Exam: normal inspection, normal range of motion 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, oriented x 3, 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 Exam: normal hearing, normal speech, PERRL Coordination/Gait: normal finger to nose, normal cerebellar function Motor/Sensory: no motor deficit, no sensory deficit, no pronator drift, negative Babinski's sign DTR: bicep (R): 2+, bicep (L): 2+, knee (R): 2+, knee (L): 2+ Skin Exam: normal color SpO2 Interpretation: normal SpO2: 92 O2 Delivery: Room Air Ordered Tests: Active Orders 24 hr Category Date Time Status IV Insertion STAT Care 11/15/24 07:54 Active CBC W DIFF Stat Lab 11/15/24 08:20 Completed CMP Stat Lab 11/15/24 08:20 Completed Lactic Acid Stat Lab 11/15/24 08:23 Completed MAG [MAGNESIUM] Stat Lab 11/15/24 08:20 Completed UA W/RFX UR CULTURE Stat Lab 11/15/24 10:54 Completed Medication Summary Discontinued Medications Generic Name Dose Route Start Last Admin Trade Name Luz PRN Reason Stop Dose Admin Acetaminophen 1,000 mg 11/15/24 08:16 11/15/24 08:18 Acetaminophen 500 Mg Tablet PO 11/15/24 08:17 1,000 mg STAT STA Administration Acetaminophen Confirm 11/15/24 08:17 Acetaminophen 500 Mg Tablet Administered 11/15/24 08:18 Dose 1,000 mg .ROUTE .STK-MED ONE Sodium Chloride Confirm 11/15/24 07:45 Sodium Chloride 0.9% 1000 Ml Administered 11/15/24 07:46 Dose 1,000 mls @ ud .ROUTE .STK-MED ONE Sodium Chloride 1,000 mls @ 999 mls/hr 11/15/24 07:54 11/15/24 10:39 Sodium Chloride 0.9% 1000 Ml IV 11/15/24 08:54 Infused .Q1H1M STA Infusion Sodium Chloride 1,000 mls @ 999 mls/hr 11/15/24 09:23 11/15/24 10:39 Sodium Chloride 0.9% 1000 Ml IV 11/15/24 10:23 Infused .Q1H1M STA Infusion Sodium Chloride Confirm 11/15/24 09:25 Sodium Chloride 0.9% 1000 Ml Administered 11/15/24 09:26 Dose 1,000 mls @ ud .ROUTE .STK-MED ONE Potassium Chloride 40 meq 11/15/24 09:23 11/15/24 09:27 Potassium Chloride Tab 10 Meq Tab PO 11/15/24 09:24 40 meq STAT ONE Administration Potassium Chloride Confirm 11/15/24 09:25 Potassium Chloride Tab 10 Meq Tab Administered 11/15/24 09:26 Dose 40 meq .ROUTE .STK-MED ONE Lab/Rad Data: Laboratory Result Diagrams 11/15/24 08:20 11/15/24 08:20 Laboratory Results 11/15/24 11/15/24 11/15/24 Range/Units 10:54 08:23 08:20 WBC (3.98-10.04) x10^3/uL RBC (3.93-5.22) x10^6/uL Hgb (11.2-15.7) g/dL Hct (34.1-44.9) % MCV (79.4-94.8) fL MCH (25.6-32.2) pg MCHC (32.2-35.5) g/dL RDW (11.7-14.4) % Plt Count (182-369) x10^3/uL MPV (9.4-12.3) fL Gran % (34.0-71.1) % Immature Gran % (Auto) (0.001-0.429) % Nucleat RBC Rel Count (0.00-0.2) % Eos # (Auto) (0.04-0.36) x10^3/uL Immature Gran # (Auto) (0.001-0.031) x10^3u/L Absolute Lymphs (auto) (1.18-3.74) x10^3/uL Absolute Monos (auto) (0.24-0.86) x10^3/uL Absolute Nucleated RBC (0.00-0.012) x10^3u/L Lymphocytes % (19.3-51.7) % Monocytes % (4.7-12.5) % Eosinophils % (0.7-5.8) % Basophils % (0.1-1.2) % Absolute Granulocytes (1.56-6.13) x10^3/uL Basophils # (0.01-0.08) x10^3/uL Sodium (135-145) mmol/L Potassium (3.5-5.1) mmol/L Chloride (98-107) mmol/L Carbon Dioxide (22-30) mmol/L Anion Gap (5-15) MEQ/L BUN (7-17) mg/dL Creatinine (0.52-1.04) mg/dL Estimated GFR ML/MIN Glucose (74-106) mg/dL Lactic Acid 0.9 (0.4-2.0) Calcium (8.4-10.2) mg/dL Magnesium 1.7 (1.6-2.3) mg/dL Total Bilirubin (0.2-1.3) mg/dL AST (14-36) U/L ALT (0-35) U/L Alkaline Phosphatase (38-126) U/L Serum Total Protein (6.3-8.2) g/dL Albumin (3.5-5.0) g/dL Urine Color Yellow (Yellow) Urine Appearance Clear (Clear) Urine pH 5.0 (4.6-8.0) Ur Specific [place] 1.010 (1.005-1.030) Urine Protein Negative (Negative) Urine Glucose (UA) Negative (Negative) mg/dL Urine Ketones Negative (Negative) Urine Blood Negative (Negative) Urine Nitrite Negative (Negative) Urine Bilirubin Negative (Negative) Urine Urobilinogen 0.2 (0.2) mg/dL Ur Leukocyte Esterase Negative (Negative) U Hyaline Cast (Auto) NONE SEEN (0-2) /LPF Urine Microscopic RBC 0-2 (0-5) /HPF Urine Microscopic WBC 0-2 (0-5) /HPF Ur Epithelial Cells None Seen (None Seen) /HPF Urine Bacteria None Seen (None Seen) /HPF Urine Culture Reflexed NO (NO) 11/15/24 11/15/24 Range/Units 08:20 08:20 WBC 10.9 H (3.98-10.04) x10^3/uL RBC 4.12 (3.93-5.22) x10^6/uL Hgb 12.5 (11.2-15.7) g/dL Hct 38.2 (34.1-44.9) % MCV 92.7 (79.4-94.8) fL MCH 30.3 (25.6-32.2) pg MCHC 32.7 (32.2-35.5) g/dL RDW 13.1 (11.7-14.4) % Plt Count 240 (182-369) x10^3/uL MPV 10.1 (9.4-12.3) fL Gran % 56.9 (34.0-71.1) % Immature Gran % (Auto) 0.4 (0.001-0.429) % Nucleat RBC Rel Count 0.0 (0.00-0.2) % Eos # (Auto) 0.22 (0.04-0.36) x10^3/uL Immature Gran # (Auto) 0.04 H (0.001-0.031) x10^3u/L Absolute Lymphs (auto) 3.89 H (1.18-3.74) x10^3/uL Absolute Monos (auto) 0.50 (0.24-0.86) x10^3/uL Absolute Nucleated RBC 0.00 (0.00-0.012) x10^3u/L Lymphocytes % 35.7 (19.3-51.7) % Monocytes % 4.6 L (4.7-12.5) % Eosinophils % 2.0 (0.7-5.8) % Basophils % 0.4 (0.1-1.2) % Absolute Granulocytes 6.20 H (1.56-6.13) x10^3/uL Basophils # 0.04 (0.01-0.08) x10^3/uL Sodium 138 (135-145) mmol/L Potassium 3.1 L (3.5-5.1) mmol/L Chloride 101 (98-107) mmol/L Carbon Dioxide 30 (22-30) mmol/L Anion Gap 9.5 (5-15) MEQ/L BUN 16 (7-17) mg/dL Creatinine 1.16 H (0.52-1.04) mg/dL Estimated GFR 56.4 ML/MIN Glucose 103 (74-106) mg/dL Lactic Acid (0.4-2.0) Calcium 8.7 (8.4-10.2) mg/dL Magnesium (1.6-2.3) mg/dL Total Bilirubin 0.40 (0.2-1.3) mg/dL AST 31 (14-36) U/L ALT 23 (0-35) U/L Alkaline Phosphatase 69 (38-126) U/L Serum Total Protein 6.4 (6.3-8.2) g/dL Albumin 3.9 (3.5-5.0) g/dL Urine Color (Yellow) Urine Appearance (Clear) Urine pH (4.6-8.0) Ur Specific [place] (1.005-1.030) Urine Protein (Negative) Urine Glucose (UA) (Negative) mg/dL Urine Ketones (Negative) Urine Blood (Negative) Urine Nitrite (Negative) Urine Bilirubin (Negative) Urine Urobilinogen (0.2) mg/dL Ur Leukocyte Esterase (Negative) U Hyaline Cast (Auto) (0-2) /LPF Urine Microscopic RBC (0-5) /HPF Urine Microscopic WBC (0-5) /HPF Ur Epithelial Cells (None Seen) /HPF Urine Bacteria (None Seen) /HPF Urine Culture Reflexed (NO) - Progress Progress: improved, re-examined Progress Note: 11/15/24 12:19 54-year-old is evaluated in the ER for breakthrough seizure. Patient has headache and was postictal, given Tylenol and fluids, on reevaluation she is feeling better and back to normal. Nonfocal neuroexam throughout stay in the ER, lungs clear to auscultation. White count of 10, chemistries with mildly low potassium otherwise fairly unremarkable, no UTI. Patient has history of seizure, did not hit her head, do not think needs imaging or any other workup, recommended outpatient follow-up with primary care and neurologist for reevaluation. Discussed signs symptoms of worsening needing return to ER which she seems understanding Counseled pt/family regarding: lab results, diagnosis, need for follow-up Medical Desision Making - Independent Historian Additional History obtained from: Child, Nursing Administrator/EMT - Diagnostic Testing Diagnostic test were ordered, analyzed, and reviewed by me: Yes - Risk of complications The pt has a mod risk of morbidity or mortality based on: Need for prescription drug management - Departure Departure Disposition: Home Clinical Impression: Breakthrough seizure, Hypokalemia Condition: Stable Critical Care Time: No Referrals: SINDY PATTON, [facility] [Primary Care Provider] - Follow up with PCP 1 day Instructions: Seizures, Adult (DC), High-potassium diet Additional Instructions: Continue with your current seizure medications. Follow-up with your primary care and neurologist for reevaluation. Return to ER for any worsening.
[2024-11-15 08:26] LABS: BASOPHIL % 0.4 % (0.1-1.2); Basophil (Absolute #) 0.04 x10^3/uL (0.01-0.08); Eosinophil (Absolute #) 0.22 x10^3/uL (0.04-0.36); Hematocrit 38.2 % (34.1-44.9); Hemoglobin 12.5 g/dL (11.2-15.7); IMMATURE GRAN # 0.04 x10^3u/L (0.001-0.031); IMMATURE GRAN % 0.4 % (0.001-0.429); Lymphocyte (Absolute #) 3.89 x10^3/uL (1.18-3.74); Lymphocytes % 35.7 % (19.3-51.7); Mean Cell Volume 92.7 fL (79.4-94.8); Mean Corpuscular Hemoglobin 30.3 pg (25.6-32.2); Mean Corpuscular Hgb Concent. 32.7 g/dL (32.2-35.5); Mean Platelet Volume 10.1 fL (9.4-12.3); Monocytes % 4.6 % (4.7-12.5); Neutrophil % 56.9 % (34.0-71.1); Platelet Count 240 x10^3/uL (182-369); Red Blood Count 4.12 x10^6/uL (3.93-5.22); Red Cell Distribution Width 13.1 % (11.7-14.4); White Blood Count 10.9 x10^3/uL (3.98-10.04)
[2024-11-15 08:39] LABS: ALBUMIN 3.9 g/dL (3.5-5.0); ANION GAP 9.5 MEQ/L (5-15); BILIRUBIN,TOTAL 0.4 mg/dL (0.2-1.3); Calcium 8.7 mg/dL (8.4-10.2); Creatinine 1 1.16 mg/dL (0.52-1.04); EST GLOMERULAR FILTRATION RATE 56.4 ML/MIN; Potassium 3.1 mmol/L (3.5-5.1); Total Protein 6.4 g/dL (6.3-8.2)
[2024-11-15] MEDS ORDERED: Klor Con ONE (09:25)
[2024-11-15] MEDS: Klor Con PO ONE (09:27)
[2024-11-15 12:01] LABS: Appearance Clear (Clear); Bacteria None Seen /HPF (None Seen); Bilirubin Negative (Negative); Blood Negative (Negative); Epithelial Cells None Seen /HPF (None Seen); Glucose, Urine Negative (Negative); Hyaline Casts NONE SEEN /LPF (0-2); Ketones Negative (Negative); Leukocyte Esterase Negative (Negative); Nitrite Negative (Negative); Protein,Urine Dip Negative (Negative); RBC 0-2 /HPF (0-5); Urobilinogen 0.2 mg/dL (0.2); WBC 0-2 /HPF (0-5)
[2024-11-15 12:51] VITALS: BP 97/61; PULSE 76; RESP 14; O2SAT 94
== END 2024-11-15 12:57 | disposition home or self-care (01) ==
LOC: ED 07:31
DX: G40.909 Epilepsy, unspecified, not intractable, without status epilepticus (principal); E87.6 Hypokalemia; R51.9 Headache, unspecified; I10 Essential (primary) hypertension; Z79.899 Other long term (current) drug therapy; Z72.0 Tobacco use
CPT/HCPCS: 36415; 80053; 81001; 83605; 83735; 85025; 96360; 96361; 99283; 99284; A9270-GY